=== PATIENT | male | born 1945 | race Caucasian/White ===

== ENCOUNTER 2018-01-03 10:05 | Inpatient (IN) ==
[2018-01-03] MEDS ORDERED: Sod Chloride 0.9% Inj 1,000 ML IV.SIG ONE (10:12)
--- NOTE | 2018-01-03 10:20 | ED ---
HPI General Chief Complaint: Seizure Stated Complaint: Seizure Time Seen by Provider: 01/03/18 10:11 History of Present Illness HPI Narrative: Patient is 72 years old male with no significant past medical history, was stopped by police on a rolled by he was driving he was, suspicious of them was moving from side to side of the road. When police stopped him he had some slurred speech was mildly confused, moving all extremities. EMS called for evaluation. Patient had tonic-clonic seizure for few minutes in front of EMS, patient was given Versed up to 6 mg total, seizure stopped patient was brought to emergency room, sedated. Vitals stable. Right pupil 4.5 cm, left 4cm, reactive to light , sluggish. Unable to evaluate neurologic status. Related Data Home Medications Medication Instructions Recorded Confirmed Unable to Obtain Home Meds 01/03/18 01/03/18 Allergies Allergy/AdvReac Type Severity Reaction Status Date / Time No Known Allergies Allergy Verified 01/03/18 10:11 Review of Systems ROS: all other systems reviewed are negative Neurologic Comments: unresponsive, postictal PMFSH Family History Family History Father Prostate cancer Mother [place] (myocardial infarction) Other Hypertension Social History Social History Substance History: Unable to Obtain Smoking Status: Unknown if ever smoked How Often Do You Have a Drink Containing Alcohol: Monthly or less Hx Recent Travel: No Recent Travel in [place] within the Last 8 Weeks: No Recent Out of Country Travel within the Last 8 Weeks: No Course Initial Documented Vital Signs Pulse Rate 76 01/03/18 10:07 Respiratory Rate 16 01/03/18 10:07 Blood Pressure 132/58 L 01/03/18 10:07 Pulse Oximetry 100 01/03/18 10:07 Last Documented Vital Signs Temperature 98.8 F 01/09/18 04:00 Pulse Rate 100 H 01/09/18 05:00 Respiratory Rate 18 01/09/18 05:00 Blood Pressure 157/83 H 01/09/18 05:00 Pulse Oximetry 92 L 01/09/18 05:00 Medical Decision Making Lab Data Result diagrams: 01/06/18 04:00 01/09/18 05:31 Lab Results 01/03/18 01/03/18 01/03/18 Range/Units 10:09 10:17 10:17 WBC 5.4 (4.0-11.0) th/mm3 RBC 4.57 (4.50-5.90) mil/mm3 Hgb 14.0 (13.0-17.0) gm/dL Hct 42.7 (39.0-51.0) % MCV 93.4 (80.0-100.0) fL MCH 30.6 (27.0-34.0) pg MCHC 32.7 (32.0-36.0) % RDW 14.9 (11.6-17.2) % Plt Count 241 (150-450) th/mm3 MPV 7.7 (7.0-11.0) fL Neut % (Auto) 69.4 (16.0-70.0) % Lymph % (Auto) 17.2 (9.0-44.0) % [place] % (Auto) 9.6 H (0.0-8.0) % Eos % (Auto) 3.2 (0.0-4.0) % Baso % (Auto) 0.6 (0.0-2.0) % Neut # (Auto) 3.7 (1.8-7.7) th/mm3 Lymph # (Auto) 0.9 L (1.0-4.8) th/mm3 [place] # (Auto) 0.5 (0.0-0.9) th/mm3 Eos # (Auto) 0.2 (0.0-0.4) th/mm3 Baso # (Auto) 0.0 (0.0-0.2) th/mm3 WBC Differential . Differential Comment Auto diff final PT (9.8-11.6) sec INR Ratio D-Dimer Quant (PE/DVT) (0.00-0.50) mg/L FEU Puncture Site Patient Temperature O2 Saturation (90-100) % ABG pH (7.380-7.420) ABG pCO2 (38-42) mmHg ABG pO2 (61-120) mmHG ABG HCO3 (22-26) mmol/L ABG O2 Content (12.0-20.0) Vol % ABG Base Excess (-2-2) mmol/L ABG Methemoglobin (0-2) % Mahin Test Hemoglobin (12.0-16.0) G/DL Carboxyhemoglobin (0-4) % O2 Delivery Device Liter Flow L/M Critical Value Sodium 142 (136-145) meq/L Potassium 4.2 (3.5-5.1) meq/L Chloride 107 (98-107) meq/L Carbon Dioxide 22.5 (21.0-32.0) meq/L Anion Gap 13 (5-15) meq/L BUN 11 (7-18) mg/dL Creatinine 1.16 (0.60-1.30) mg/dL Estimated GFR 62 L (>89) mL/min POC Glucose 145 H (68-110) mg/dl Random Glucose 141 H (74-106) mg/dL Lactic Acid (0.4-2.0) mmol/L Calcium 9.0 (8.5-10.1) mg/dL Magnesium (1.5-2.5) mg/dL Total Bilirubin 0.4 (0.2-1.0) mg/dL AST 26 (15-37) U/L ALT 26 (12-78) U/L Alkaline Phosphatase 79 (45-117) U/L Troponin I (0.02-0.05) ng/mL Total Protein 8.4 H (6.4-8.2) g/dL Albumin 3.5 (3.4-5.0) g/dL Free PSA ng/mL Total PSA (<=6.5) ng/mL PSA Free/Total Ratio ratio Vitamin B12 (193-986) pg/mL Ascorbic Acid (0.4 - 2.0) mg/dL Vitamin D 25-Hydroxy (30-100) ng/mL TSH (0.358-3.740) uIU/mL Urine Color (Yellw/Straw) Urine Clarity (Clear) Urine pH (5.0-8.5) Ur Specific [place] (1.002-1.035) Urine Protein (Neg-Trace) mg/dL Urine Glucose (UA) (Negative) mg/dL Urine Ketones (Negative) mg/dL Urine Occult Blood (Negative) Urine Nitrate (Negative) Urine Bilirubin (Negative) Urine Urobilinogen (Less than 2) mg/dL Ur Leukocyte Esterase (Negative) Urine RBC (0-3) /hpf Urine WBC (0-5) /hpf Ur Squamous Epith Cells (0-5) /hpf Urine Bacteria (None) /hpf Hyaline Casts (0-3) /lpf Urine Mucus (Occasional) /lpf Micro UA Comment Ur Microscopic Review Urine Culture Comments CSF Volume (1) mL CSF Supernat Color (1) (Clear) CSF Gross Blood (1) (0) CSF WBC (1) (0-10) /mm3 CSF RBC (1) (None) /mm3 CSF Volume (2) mL CSF Supernat Color (2) (Clear) CSF Gross Blood (2) (0) CSF Volume (3) mL CSF Supernat Color (3) (Clear) CSF Gross Blood (3) (0) CSF Volume (4) mL CSF Supernat Color (4) (Clear) CSF Gross Blood (4) (0) CSF WBC (4) (0-10) /mm3 CSF RBC (4) (None) /mm3 CSF Neutrophils % % CSF Lymphocytes % % CSF Monocytes % % CSF Comment CSF Glucose (40-80) mg/dL CSF LDH U/L CSF Lactic Acid (0.0-3.0) mmol/L CSF Total Protein (15.0-45.0) mg/dL CSF Treponema Ab (FTA) (NonReactive) CSF Herpes I DNA (PCR) (Negative) CSF Herpes II DNA (PCR) (Negative) Nasal Screen MRSA (PCR) (Negative) Urine Opiates Screen (Neg) Ur Barbiturates Screen (Neg) Ur Amphetamines Screen (Neg) U Benzodiazepines Scrn (Neg) Urine Cocaine Screen (Neg) U Cannabinoids Screen (Neg) Serum Alcohol Less than 3 (0-5) mg/dL RPR (Nonreactive) Hepatitis A IgM Ab (Nonreactive) Hep Bs Antigen (Nonreactive) Hep B Core IgM Ab (Nonreactive) Hep C IgG Ab (Nonreactive) HIV 1&2 Ab/P24 Ag 4thGn (Nonreactive) 01/03/18 01/03/18 01/03/18 Range/Units 10:17 10:17 10:43 WBC (4.0-11.0) th/mm3 RBC (4.50-5.90) mil/mm3 Hgb (13.0-17.0) gm/dL Hct (39.0-51.0) % MCV (80.0-100.0) fL MCH (27.0-34.0) pg MCHC (32.0-36.0) % RDW (11.6-17.2) % Plt Count (150-450) th/mm3 MPV (7.0-11.0) fL Neut % (Auto) (16.0-70.0) % Lymph % (Auto) (9.0-44.0) % [place] % (Auto) (0.0-8.0) % Eos % (Auto) (0.0-4.0) % Baso % (Auto) (0.0-2.0) % Neut # (Auto) (1.8-7.7) th/mm3 Lymph # (Auto) (1.0-4.8) th/mm3 [place] # (Auto) (0.0-0.9) th/mm3 Eos # (Auto) (0.0-0.4) th/mm3 Baso # (Auto) (0.0-0.2) th/mm3 WBC Differential Differential Comment PT (9.8-11.6) sec INR Ratio D-Dimer Quant (PE/DVT) (0.00-0.50) mg/L FEU Puncture Site Patient Temperature O2 Saturation (90-100) % ABG pH (7.380-7.420) ABG pCO2 (38-42) mmHg ABG pO2 (61-120) mmHG ABG HCO3 (22-26) mmol/L ABG O2 Content (12.0-20.0) Vol % ABG Base Excess (-2-2) mmol/L ABG Methemoglobin (0-2) % Mahin Test Hemoglobin (12.0-16.0) G/DL Carboxyhemoglobin (0-4) % O2 Delivery Device Liter Flow L/M Critical Value Sodium (136-145) meq/L Potassium (3.5-5.1) meq/L Chloride (98-107) meq/L Carbon Dioxide (21.0-32.0) meq/L Anion Gap (5-15) meq/L BUN (7-18) mg/dL Creatinine (0.60-1.30) mg/dL Estimated GFR (>89) mL/min POC Glucose (68-110) mg/dl Random Glucose (74-106) mg/dL Lactic Acid 5.0 H* (0.4-2.0) mmol/L Calcium (8.5-10.1) mg/dL Magnesium 2.0 (1.5-2.5) mg/dL Total Bilirubin (0.2-1.0) mg/dL AST (15-37) U/L ALT (12-78) U/L Alkaline Phosphatase (45-117) U/L Troponin I Less than 0.02 L (0.02-0.05) ng/mL Total Protein (6.4-8.2) g/dL Albumin (3.4-5.0) g/dL Free PSA ng/mL Total PSA (<=6.5) ng/mL PSA Free/Total Ratio ratio Vitamin B12 (193-986) pg/mL Ascorbic Acid (0.4 - 2.0) mg/dL Vitamin D 25-Hydroxy (30-100) ng/mL TSH (0.358-3.740) uIU/mL Urine Color (Yellw/Straw) Urine Clarity (Clear) Urine pH (5.0-8.5) Ur Specific [place] (1.002-1.035) Urine Protein (Neg-Trace) mg/dL Urine Glucose (UA) (Negative) mg/dL Urine Ketones (Negative) mg/dL Urine Occult Blood (Negative) Urine Nitrate (Negative) Urine Bilirubin (Negative) Urine Urobilinogen (Less than 2) mg/dL Ur Leukocyte Esterase (Negative) Urine RBC (0-3) /hpf Urine WBC (0-5) /hpf Ur Squamous Epith Cells (0-5) /hpf Urine Bacteria (None) /hpf Hyaline Casts (0-3) /lpf Urine Mucus (Occasional) /lpf Micro UA Comment Ur Microscopic Review Urine Culture Comments CSF Volume (1) mL CSF Supernat Color (1) (Clear) CSF Gross Blood (1) (0) CSF WBC (1) (0-10) /mm3 CSF RBC (1) (None) /mm3 CSF Volume (2) mL CSF Supernat Color (2) (Clear) CSF Gross Blood (2) (0) CSF Volume (3) mL CSF Supernat Color (3) (Clear) CSF Gross Blood (3) (0) CSF Volume (4) mL CSF Supernat Color (4) (Clear) CSF Gross Blood (4) (0) CSF WBC (4) (0-10) /mm3 CSF RBC (4) (None) /mm3 CSF Neutrophils % % CSF Lymphocytes % % CSF Monocytes % % CSF Comment CSF Glucose (40-80) mg/dL CSF LDH U/L CSF Lactic Acid (0.0-3.0) mmol/L CSF Total Protein (15.0-45.0) mg/dL CSF Treponema Ab (FTA) (NonReactive) CSF Herpes I DNA (PCR) (Negative) CSF Herpes II DNA (PCR) (Negative) Nasal Screen MRSA (PCR) (Negative) Urine Opiates Screen (Neg) Ur Barbiturates Screen (Neg) Ur Amphetamines Screen (Neg) U Benzodiazepines Scrn (Neg) Urine Cocaine Screen (Neg) U Cannabinoids Screen (Neg) Serum Alcohol (0-5) mg/dL RPR (Nonreactive) Hepatitis A IgM Ab (Nonreactive) Hep Bs Antigen (Nonreactive) Hep B Core IgM Ab (Nonreactive) Hep C IgG Ab (Nonreactive) HIV 1&2 Ab/P24 Ag 4thGn (Nonreactive) 01/03/18 01/03/18 01/03/18 Range/Units 10:58 16:49 16:55 WBC (4.0-11.0) th/mm3 RBC (4.50-5.90) mil/mm3 Hgb (13.0-17.0) gm/dL Hct (39.0-51.0) % MCV (80.0-100.0) fL MCH (27.0-34.0) pg MCHC (32.0-36.0) % RDW (11.6-17.2) % Plt Count (150-450) th/mm3 MPV (7.0-11.0) fL Neut % (Auto) (16.0-70.0) % Lymph % (Auto) (9.0-44.0) % [place] % (Auto) (0.0-8.0) % Eos % (Auto) (0.0-4.0) % Baso % (Auto) (0.0-2.0) % Neut # (Auto) (1.8-7.7) th/mm3 Lymph # (Auto) (1.0-4.8) th/mm3 [place] # (Auto) (0.0-0.9) th/mm3 Eos # (Auto) (0.0-0.4) th/mm3 Baso # (Auto) (0.0-0.2) th/mm3 WBC Differential Differential Comment PT (9.8-11.6) sec INR Ratio D-Dimer Quant (PE/DVT) (0.00-0.50) mg/L FEU Puncture Site Patient Temperature O2 Saturation (90-100) % ABG pH (7.380-7.420) ABG pCO2 (38-42) mmHg ABG pO2 (61-120) mmHG ABG HCO3 (22-26) mmol/L ABG O2 Content (12.0-20.0) Vol % ABG Base Excess (-2-2) mmol/L ABG Methemoglobin (0-2) % Mahin Test Hemoglobin (12.0-16.0) G/DL Carboxyhemoglobin (0-4) % O2 Delivery Device Liter Flow L/M Critical Value Sodium (136-145) meq/L Potassium (3.5-5.1) meq/L Chloride (98-107) meq/L Carbon Dioxide (21.0-32.0) meq/L Anion Gap (5-15) meq/L BUN (7-18) mg/dL Creatinine (0.60-1.30) mg/dL Estimated GFR (>89) mL/min POC Glucose 125 H (68-110) mg/dl Random Glucose (74-106) mg/dL Lactic Acid (0.4-2.0) mmol/L Calcium (8.5-10.1) mg/dL Magnesium (1.5-2.5) mg/dL Total Bilirubin (0.2-1.0) mg/dL AST (15-37) U/L ALT (12-78) U/L Alkaline Phosphatase (45-117) U/L Troponin I (0.02-0.05) ng/mL Total Protein (6.4-8.2) g/dL Albumin (3.4-5.0) g/dL Free PSA ng/mL Total PSA (<=6.5) ng/mL PSA Free/Total Ratio ratio Vitamin B12 (193-986) pg/mL Ascorbic Acid (0.4 - 2.0) mg/dL Vitamin D 25-Hydroxy (30-100) ng/mL TSH (0.358-3.740) uIU/mL Urine Color (Yellw/Straw) Urine Clarity (Clear) Urine pH (5.0-8.5) Ur Specific [place] (1.002-1.035) Urine Protein (Neg-Trace) mg/dL Urine Glucose (UA) (Negative) mg/dL Urine Ketones (Negative) mg/dL Urine Occult Blood (Negative) Urine Nitrate (Negative) Urine Bilirubin (Negative) Urine Urobilinogen (Less than 2) mg/dL Ur Leukocyte Esterase (Negative) Urine RBC (0-3) /hpf Urine WBC (0-5) /hpf Ur Squamous Epith Cells (0-5) /hpf Urine Bacteria (None) /hpf Hyaline Casts (0-3) /lpf Urine Mucus (Occasional) /lpf Micro UA Comment Ur Microscopic Review Urine Culture Comments CSF Volume (1) mL CSF Supernat Color (1) (Clear) CSF Gross Blood (1) (0) CSF WBC (1) (0-10) /mm3 CSF RBC (1) (None) /mm3 CSF Volume (2) mL CSF Supernat Color (2) (Clear) CSF Gross Blood (2) (0) CSF Volume (3) mL CSF Supernat Color (3) (Clear) CSF Gross Blood (3) (0) CSF Volume (4) mL CSF Supernat Color (4) (Clear) CSF Gross Blood (4) (0) CSF WBC (4) (0-10) /mm3 CSF RBC (4) (None) /mm3 CSF Neutrophils % % CSF Lymphocytes % % CSF Monocytes % % CSF Comment CSF Glucose (40-80) mg/dL CSF LDH U/L CSF Lactic Acid (0.0-3.0) mmol/L CSF Total Protein (15.0-45.0) mg/dL CSF Treponema Ab (FTA) (NonReactive) CSF Herpes I DNA (PCR) (Negative) CSF Herpes II DNA (PCR) (Negative) Nasal Screen MRSA (PCR) Not detected (Negative) Urine Opiates Screen Neg (Neg) Ur Barbiturates Screen Neg (Neg) Ur Amphetamines Screen Neg (Neg) U Benzodiazepines Scrn Pos H (Neg) Urine Cocaine Screen Neg (Neg) U Cannabinoids Screen Neg (Neg) Serum Alcohol (0-5) mg/dL RPR (Nonreactive) Hepatitis A IgM Ab (Nonreactive) Hep Bs Antigen (Nonreactive) Hep B Core IgM Ab (Nonreactive) Hep C IgG Ab (Nonreactive) HIV 1&2 Ab/P24 Ag 4thGn (Nonreactive) 01/03/18 01/03/18 01/03/18 Range/Units 21:04 21:04 21:04 WBC (4.0-11.0) th/mm3 RBC (4.50-5.90) mil/mm3 Hgb (13.0-17.0) gm/dL Hct (39.0-51.0) % MCV (80.0-100.0) fL MCH (27.0-34.0) pg MCHC (32.0-36.0) % RDW (11.6-17.2) % Plt Count (150-450) th/mm3 MPV (7.0-11.0) fL Neut % (Auto) (16.0-70.0) % Lymph % (Auto) (9.0-44.0) % [place] % (Auto) (0.0-8.0) % Eos % (Auto) (0.0-4.0) % Baso % (Auto) (0.0-2.0) % Neut # (Auto) (1.8-7.7) th/mm3 Lymph # (Auto) (1.0-4.8) th/mm3 [place] # (Auto) (0.0-0.9) th/mm3 Eos # (Auto) (0.0-0.4) th/mm3 Baso # (Auto) (0.0-0.2) th/mm3 WBC Differential Differential Comment PT (9.8-11.6) sec INR Ratio D-Dimer Quant (PE/DVT) (0.00-0.50) mg/L FEU Puncture Site Patient Temperature O2 Saturation (90-100) % ABG pH (7.380-7.420) ABG pCO2 (38-42) mmHg ABG pO2 (61-120) mmHG ABG HCO3 (22-26) mmol/L ABG O2 Content (12.0-20.0) Vol % ABG Base Excess (-2-2) mmol/L ABG Methemoglobin (0-2) % Mahin Test Hemoglobin (12.0-16.0) G/DL Carboxyhemoglobin (0-4) % O2 Delivery Device Liter Flow L/M Critical Value Sodium (136-145) meq/L Potassium (3.5-5.1) meq/L Chloride (98-107) meq/L Carbon Dioxide (21.0-32.0) meq/L Anion Gap (5-15) meq/L BUN (7-18) mg/dL Creatinine (0.60-1.30) mg/dL Estimated GFR (>89) mL/min POC Glucose (68-110) mg/dl Random Glucose (74-106) mg/dL Lactic Acid (0.4-2.0) mmol/L Calcium (8.5-10.1) mg/dL Magnesium (1.5-2.5) mg/dL Total Bilirubin (0.2-1.0) mg/dL AST (15-37) U/L ALT (12-78) U/L Alkaline Phosphatase (45-117) U/L Troponin I (0.02-0.05) ng/mL Total Protein (6.4-8.2) g/dL Albumin (3.4-5.0) g/dL Free PSA 0.4 ng/mL Total PSA 0.9 (<=6.5) ng/mL PSA Free/Total Ratio 0 ratio Vitamin B12 499 (193-986) pg/mL Ascorbic Acid 0.8000 (0.4 - 2.0) mg/dL Vitamin D 25-Hydroxy 23.7 L (30-100) ng/mL TSH 0.380 (0.358-3.740) uIU/mL Urine Color (Yellw/Straw) Urine Clarity (Clear) Urine pH (5.0-8.5) Ur Specific [place] (1.002-1.035) Urine Protein (Neg-Trace) mg/dL Urine Glucose (UA) (Negative) mg/dL Urine Ketones (Negative) mg/dL Urine Occult Blood (Negative) Urine Nitrate (Negative) Urine Bilirubin (Negative) Urine Urobilinogen (Less than 2) mg/dL Ur Leukocyte Esterase (Negative) Urine RBC (0-3) /hpf Urine WBC (0-5) /hpf Ur Squamous Epith Cells (0-5) /hpf Urine Bacteria (None) /hpf Hyaline Casts (0-3) /lpf Urine Mucus (Occasional) /lpf Micro UA Comment Ur Microscopic Review Urine Culture Comments CSF Volume (1) mL CSF Supernat Color (1) (Clear) CSF Gross Blood (1) (0) CSF WBC (1) (0-10) /mm3 CSF RBC (1) (None) /mm3 CSF Volume (2) mL CSF Supernat Color (2) (Clear) CSF Gross Blood (2) (0) CSF Volume (3) mL CSF Supernat Color (3) (Clear) CSF Gross Blood (3) (0) CSF Volume (4) mL CSF Supernat Color (4) (Clear) CSF Gross Blood (4) (0) CSF WBC (4) (0-10) /mm3 CSF RBC (4) (None) /mm3 CSF Neutrophils % % CSF Lymphocytes % % CSF Monocytes % % CSF Comment CSF Glucose (40-80) mg/dL CSF LDH U/L CSF Lactic Acid (0.0-3.0) mmol/L CSF Total Protein (15.0-45.0) mg/dL CSF Treponema Ab (FTA) (NonReactive) CSF Herpes I DNA (PCR) (Negative) CSF Herpes II DNA (PCR) (Negative) Nasal Screen MRSA (PCR) (Negative) Urine Opiates Screen (Neg) Ur Barbiturates Screen (Neg) Ur Amphetamines Screen (Neg) U Benzodiazepines Scrn (Neg) Urine Cocaine Screen (Neg) U Cannabinoids Screen (Neg) Serum Alcohol (0-5) mg/dL RPR Nonreactive (Nonreactive) Hepatitis A IgM Ab (Nonreactive) Hep Bs Antigen (Nonreactive) Hep B Core IgM Ab (Nonreactive) Hep C IgG Ab (Nonreactive) HIV 1&2 Ab/P24 Ag 4thGn (Nonreactive) 01/04/18 01/04/18 01/04/18 Range/Units 04:54 05:48 05:48 WBC 8.6 D (4.0-11.0) th/mm3 RBC 4.03 L (4.50-5.90) mil/mm3 Hgb 12.2 L (13.0-17.0) gm/dL Hct 36.2 L (39.0-51.0) % MCV 89.7 D (80.0-100.0) fL MCH 30.2 (27.0-34.0) pg MCHC 33.7 (32.0-36.0) % RDW 14.4 (11.6-17.2) % Plt Count 191 (150-450) th/mm3 MPV 7.4 (7.0-11.0) fL Neut % (Auto) (16.0-70.0) % Lymph % (Auto) (9.0-44.0) % [place] % (Auto) (0.0-8.0) % Eos % (Auto) (0.0-4.0) % Baso % (Auto) (0.0-2.0) % Neut # (Auto) (1.8-7.7) th/mm3 Lymph # (Auto) (1.0-4.8) th/mm3 [place] # (Auto) (0.0-0.9) th/mm3 Eos # (Auto) (0.0-0.4) th/mm3 Baso # (Auto) (0.0-0.2) th/mm3 WBC Differential Differential Comment PT (9.8-11.6) sec INR Ratio D-Dimer Quant (PE/DVT) (0.00-0.50) mg/L FEU Puncture Site Patient Temperature O2 Saturation (90-100) % ABG pH (7.380-7.420) ABG pCO2 (38-42) mmHg ABG pO2 (61-120) mmHG ABG HCO3 (22-26) mmol/L ABG O2 Content (12.0-20.0) Vol % ABG Base Excess (-2-2) mmol/L ABG Methemoglobin (0-2) % Mahin Test Hemoglobin (12.0-16.0) G/DL Carboxyhemoglobin (0-4) % O2 Delivery Device Liter Flow L/M Critical Value Sodium 146 H (136-145) meq/L Potassium 3.2 L D (3.5-5.1) meq/L Chloride 111 H (98-107) meq/L Carbon Dioxide 28.1 (21.0-32.0) meq/L Anion Gap 7 (5-15) meq/L BUN 12 (7-18) mg/dL Creatinine 0.67 (0.60-1.30) mg/dL Estimated GFR Greater than 89 (>89) mL/min POC Glucose (68-110) mg/dl Random Glucose 105 (74-106) mg/dL Lactic Acid 1.0 (0.4-2.0) mmol/L Calcium 8.1 L D (8.5-10.1) mg/dL Magnesium (1.5-2.5) mg/dL Total Bilirubin (0.2-1.0) mg/dL AST (15-37) U/L ALT (12-78) U/L Alkaline Phosphatase (45-117) U/L Troponin I (0.02-0.05) ng/mL Total Protein (6.4-8.2) g/dL Albumin (3.4-5.0) g/dL Free PSA ng/mL Total PSA (<=6.5) ng/mL PSA Free/Total Ratio ratio Vitamin B12 (193-986) pg/mL Ascorbic Acid (0.4 - 2.0) mg/dL Vitamin D 25-Hydroxy (30-100) ng/mL TSH (0.358-3.740) uIU/mL Urine Color (Yellw/Straw) Urine Clarity (Clear) Urine pH (5.0-8.5) Ur Specific [place] (1.002-1.035) Urine Protein (Neg-Trace) mg/dL Urine Glucose (UA) (Negative) mg/dL Urine Ketones (Negative) mg/dL Urine Occult Blood (Negative) Urine Nitrate (Negative) Urine Bilirubin (Negative) Urine Urobilinogen (Less than 2) mg/dL Ur Leukocyte Esterase (Negative) Urine RBC (0-3) /hpf Urine WBC (0-5) /hpf Ur Squamous Epith Cells (0-5) /hpf Urine Bacteria (None) /hpf Hyaline Casts (0-3) /lpf Urine Mucus (Occasional) /lpf Micro UA Comment Ur Microscopic Review Urine Culture Comments CSF Volume (1) mL CSF Supernat Color (1) (Clear) CSF Gross Blood (1) (0) CSF WBC (1) (0-10) /mm3 CSF RBC (1) (None) /mm3 CSF Volume (2) mL CSF Supernat Color (2) (Clear) CSF Gross Blood (2) (0) CSF Volume (3) mL CSF Supernat Color (3) (Clear) CSF Gross Blood (3) (0) CSF Volume (4) mL CSF Supernat Color (4) (Clear) CSF Gross Blood (4) (0) CSF WBC (4) (0-10) /mm3 CSF RBC (4) (None) /mm3 CSF Neutrophils % % CSF Lymphocytes % % CSF Monocytes % % CSF Comment CSF Glucose (40-80) mg/dL CSF LDH U/L CSF Lactic Acid (0.0-3.0) mmol/L CSF Total Protein (15.0-45.0) mg/dL CSF Treponema Ab (FTA) (NonReactive) CSF Herpes I DNA (PCR) (Negative) CSF Herpes II DNA (PCR) (Negative) Nasal Screen MRSA (PCR) (Negative) Urine Opiates Screen (Neg) Ur Barbiturates Screen (Neg) Ur Amphetamines Screen (Neg) U Benzodiazepines Scrn (Neg) Urine Cocaine Screen (Neg) U Cannabinoids Screen (Neg) Serum Alcohol (0-5) mg/dL RPR (Nonreactive) Hepatitis A IgM Ab (Nonreactive) Hep Bs Antigen (Nonreactive) Hep B Core IgM Ab (Nonreactive) Hep C IgG Ab (Nonreactive) HIV 1&2 Ab/P24 Ag 4thGn (Nonreactive) 01/04/18 01/05/18 01/05/18 Range/Units 22:43 00:45 03:21 WBC 9.6 (4.0-11.0) th/mm3 RBC 5.01 (4.50-5.90) mil/mm3 Hgb 15.2 D (13.0-17.0) gm/dL Hct 45.2 (39.0-51.0) % MCV 90.3 (80.0-100.0) fL MCH 30.3 (27.0-34.0) pg MCHC 33.6 (32.0-36.0) % RDW 14.9 (11.6-17.2) % Plt Count 190 (150-450) th/mm3 MPV 7.7 (7.0-11.0) fL Neut % (Auto) 92.5 H (16.0-70.0) % Lymph % (Auto) 2.2 L (9.0-44.0) % [place] % (Auto) 4.8 (0.0-8.0) % Eos % (Auto) 0.3 (0.0-4.0) % Baso % (Auto) 0.2 (0.0-2.0) % Neut # (Auto) 8.9 H (1.8-7.7) th/mm3 Lymph # (Auto) 0.2 L (1.0-4.8) th/mm3 [place] # (Auto) 0.5 (0.0-0.9) th/mm3 Eos # (Auto) 0.0 (0.0-0.4) th/mm3 Baso # (Auto) 0.0 (0.0-0.2) th/mm3 WBC Differential . Differential Comment Auto diff final PT (9.8-11.6) sec INR Ratio D-Dimer Quant (PE/DVT) (0.00-0.50) mg/L FEU Puncture Site Left radial Patient Temperature 98.6 O2 Saturation 92 (90-100) % ABG pH 7.41 (7.380-7.420) ABG pCO2 44 H (38-42) mmHg ABG pO2 85 (61-120) mmHG ABG HCO3 27 H (22-26) mmol/L ABG O2 Content 17.3 (12.0-20.0) Vol % ABG Base Excess 2.7 H (-2-2) mmol/L ABG Methemoglobin 2.8 H (0-2) % Mahin Test Present Hemoglobin 13.4 (12.0-16.0) G/DL Carboxyhemoglobin 0.6 (0-4) % O2 Delivery Device Nasal cannula Liter Flow 3.00 L/M Critical Value No Sodium (136-145) meq/L Potassium (3.5-5.1) meq/L Chloride (98-107) meq/L Carbon Dioxide (21.0-32.0) meq/L Anion Gap (5-15) meq/L BUN (7-18) mg/dL Creatinine (0.60-1.30) mg/dL Estimated GFR (>89) mL/min POC Glucose (68-110) mg/dl Random Glucose (74-106) mg/dL Lactic Acid (0.4-2.0) mmol/L Calcium (8.5-10.1) mg/dL Magnesium (1.5-2.5) mg/dL Total Bilirubin (0.2-1.0) mg/dL AST (15-37) U/L ALT (12-78) U/L Alkaline Phosphatase (45-117) U/L Troponin I (0.02-0.05) ng/mL Total Protein (6.4-8.2) g/dL Albumin (3.4-5.0) g/dL Free PSA ng/mL Total PSA (<=6.5) ng/mL PSA Free/Total Ratio ratio Vitamin B12 (193-986) pg/mL Ascorbic Acid (0.4 - 2.0) mg/dL Vitamin D 25-Hydroxy (30-100) ng/mL TSH (0.358-3.740) uIU/mL Urine Color Colorless (Yellw/Straw) Urine Clarity Clear (Clear) Urine pH 5.0 (5.0-8.5) Ur Specific [place] 1.005 (1.002-1.035) Urine Protein Negative (Neg-Trace) mg/dL Urine Glucose (UA) Negative (Negative) mg/dL Urine Ketones Negative (Negative) mg/dL Urine Occult Blood Small H (Negative) Urine Nitrate Negative (Negative) Urine Bilirubin Negative (Negative) Urine Urobilinogen Less than 2 (Less than 2) mg/dL Ur Leukocyte Esterase Negative (Negative) Urine RBC 1 (0-3) /hpf Urine WBC 1 (0-5) /hpf Ur Squamous Epith Cells <1 (0-5) /hpf Urine Bacteria Rare H (None) /hpf Hyaline Casts 4 (0-3) /lpf Urine Mucus Few H (Occasional) /lpf Micro UA Comment Cath-culture ind Ur Microscopic Review Not Reportable Urine Culture Comments Cath-cult indicated CSF Volume (1) mL CSF Supernat Color (1) (Clear) CSF Gross Blood (1) (0) CSF WBC (1) (0-10) /mm3 CSF RBC (1) (None) /mm3 CSF Volume (2) mL CSF Supernat Color (2) (Clear) CSF Gross Blood (2) (0) CSF Volume (3) mL CSF Supernat Color (3) (Clear) CSF Gross Blood (3) (0) CSF Volume (4) mL CSF Supernat Color (4) (Clear) CSF Gross Blood (4) (0) CSF WBC (4) (0-10) /mm3 CSF RBC (4) (None) /mm3 CSF Neutrophils % % CSF Lymphocytes % % CSF Monocytes % % CSF Comment CSF Glucose (40-80) mg/dL CSF LDH U/L CSF Lactic Acid (0.0-3.0) mmol/L CSF Total Protein (15.0-45.0) mg/dL CSF Treponema Ab (FTA) (NonReactive) CSF Herpes I DNA (PCR) (Negative) CSF Herpes II DNA (PCR) (Negative) Nasal Screen MRSA (PCR) (Negative) Urine Opiates Screen (Neg) Ur Barbiturates Screen (Neg) Ur Amphetamines Screen (Neg) U Benzodiazepines Scrn (Neg) Urine Cocaine Screen (Neg) U Cannabinoids Screen (Neg) Serum Alcohol (0-5) mg/dL RPR (Nonreactive) Hepatitis A IgM Ab (Nonreactive) Hep Bs Antigen (Nonreactive) Hep B Core IgM Ab (Nonreactive) Hep C IgG Ab (Nonreactive) HIV 1&2 Ab/P24 Ag 4thGn (Nonreactive) 01/05/18 01/05/18 01/05/18 Range/Units 03:21 03:21 14:32 WBC (4.0-11.0) th/mm3 RBC (4.50-5.90) mil/mm3 Hgb (13.0-17.0) gm/dL Hct (39.0-51.0) % MCV (80.0-100.0) fL MCH (27.0-34.0) pg MCHC (32.0-36.0) % RDW (11.6-17.2) % Plt Count (150-450) th/mm3 MPV (7.0-11.0) fL Neut % (Auto) (16.0-70.0) % Lymph % (Auto) (9.0-44.0) % [place] % (Auto) (0.0-8.0) % Eos % (Auto) (0.0-4.0) % Baso % (Auto) (0.0-2.0) % Neut # (Auto) (1.8-7.7) th/mm3 Lymph # (Auto) (1.0-4.8) th/mm3 [place] # (Auto) (0.0-0.9) th/mm3 Eos # (Auto) (0.0-0.4) th/mm3 Baso # (Auto) (0.0-0.2) th/mm3 WBC Differential Differential Comment PT (9.8-11.6) sec INR Ratio D-Dimer Quant (PE/DVT) 3.83 H (0.00-0.50) mg/L FEU Puncture Site Patient Temperature O2 Saturation (90-100) % ABG pH (7.380-7.420) ABG pCO2 (38-42) mmHg ABG pO2 (61-120) mmHG ABG HCO3 (22-26) mmol/L ABG O2 Content (12.0-20.0) Vol % ABG Base Excess (-2-2) mmol/L ABG Methemoglobin (0-2) % Mahin Test Hemoglobin (12.0-16.0) G/DL Carboxyhemoglobin (0-4) % O2 Delivery Device Liter Flow L/M Critical Value Sodium 144 (136-145) meq/L Potassium 3.6 (3.5-5.1) meq/L Chloride 104 (98-107) meq/L Carbon Dioxide 35.0 H (21.0-32.0) meq/L Anion Gap 5 (5-15) meq/L BUN 12 (7-18) mg/dL Creatinine 1.31 H (0.60-1.30) mg/dL Estimated GFR 54 L (>89) mL/min POC Glucose (68-110) mg/dl Random Glucose 122 H (74-106) mg/dL Lactic Acid 1.4 (0.4-2.0) mmol/L Calcium 8.5 (8.5-10.1) mg/dL Magnesium 1.9 (1.5-2.5) mg/dL Total Bilirubin 1.7 H (0.2-1.0) mg/dL AST 36 (15-37) U/L ALT 32 (12-78) U/L Alkaline Phosphatase 83 (45-117) U/L Troponin I (0.02-0.05) ng/mL Total Protein 8.5 H (6.4-8.2) g/dL Albumin 3.4 (3.4-5.0) g/dL Free PSA ng/mL Total PSA (<=6.5) ng/mL PSA Free/Total Ratio ratio Vitamin B12 (193-986) pg/mL Ascorbic Acid (0.4 - 2.0) mg/dL Vitamin D 25-Hydroxy (30-100) ng/mL TSH (0.358-3.740) uIU/mL Urine Color (Yellw/Straw) Urine Clarity (Clear) Urine pH (5.0-8.5) Ur Specific [place] (1.002-1.035) Urine Protein (Neg-Trace) mg/dL Urine Glucose (UA) (Negative) mg/dL Urine Ketones (Negative) mg/dL Urine Occult Blood (Negative) Urine Nitrate (Negative) Urine Bilirubin (Negative) Urine Urobilinogen (Less than 2) mg/dL Ur Leukocyte Esterase (Negative) Urine RBC (0-3) /hpf Urine WBC (0-5) /hpf Ur Squamous Epith Cells (0-5) /hpf Urine Bacteria (None) /hpf Hyaline Casts (0-3) /lpf Urine Mucus (Occasional) /lpf Micro UA Comment Ur Microscopic Review Urine Culture Comments CSF Volume (1) mL CSF Supernat Color (1) (Clear) CSF Gross Blood (1) (0) CSF WBC (1) (0-10) /mm3 CSF RBC (1) (None) /mm3 CSF Volume (2) mL CSF Supernat Color (2) (Clear) CSF Gross Blood (2) (0) CSF Volume (3) mL CSF Supernat Color (3) (Clear) CSF Gross Blood (3) (0) CSF Volume (4) mL CSF Supernat Color (4) (Clear) CSF Gross Blood (4) (0) CSF WBC (4) (0-10) /mm3 CSF RBC (4) (None) /mm3 CSF Neutrophils % % CSF Lymphocytes % % CSF Monocytes % % CSF Comment CSF Glucose (40-80) mg/dL CSF LDH U/L CSF Lactic Acid (0.0-3.0) mmol/L CSF Total Protein (15.0-45.0) mg/dL CSF Treponema Ab (FTA) (NonReactive) CSF Herpes I DNA (PCR) (Negative) CSF Herpes II DNA (PCR) (Negative) Nasal Screen MRSA (PCR) (Negative) Urine Opiates Screen (Neg) Ur Barbiturates Screen (Neg) Ur Amphetamines Screen (Neg) U Benzodiazepines Scrn (Neg) Urine Cocaine Screen (Neg) U Cannabinoids Screen (Neg) Serum Alcohol (0-5) mg/dL RPR (Nonreactive) Hepatitis A IgM Ab (Nonreactive) Hep Bs Antigen (Nonreactive) Hep B Core IgM Ab (Nonreactive) Hep C IgG Ab (Nonreactive) HIV 1&2 Ab/P24 Ag 4thGn (Nonreactive) 01/05/18 01/06/18 01/06/18 Range/Units 20:23 04:00 04:00 WBC 6.6 (4.0-11.0) th/mm3 RBC 4.84 (4.50-5.90) mil/mm3 Hgb 14.6 (13.0-17.0) gm/dL Hct 43.8 (39.0-51.0) % MCV 90.4 (80.0-100.0) fL MCH 30.2 (27.0-34.0) pg MCHC 33.4 (32.0-36.0) % RDW 14.8 (11.6-17.2) % Plt Count 168 (150-450) th/mm3 MPV 8.2 (7.0-11.0) fL Neut % (Auto) (16.0-70.0) % Lymph % (Auto) (9.0-44.0) % [place] % (Auto) (0.0-8.0) % Eos % (Auto) (0.0-4.0) % Baso % (Auto) (0.0-2.0) % Neut # (Auto) (1.8-7.7) th/mm3 Lymph # (Auto) (1.0-4.8) th/mm3 [place] # (Auto) (0.0-0.9) th/mm3 Eos # (Auto) (0.0-0.4) th/mm3 Baso # (Auto) (0.0-0.2) th/mm3 WBC Differential Differential Comment PT (9.8-11.6) sec INR Ratio D-Dimer Quant (PE/DVT) (0.00-0.50) mg/L FEU Puncture Site Patient Temperature O2 Saturation (90-100) % ABG pH (7.380-7.420) ABG pCO2 (38-42) mmHg ABG pO2 (61-120) mmHG ABG HCO3 (22-26) mmol/L ABG O2 Content (12.0-20.0) Vol % ABG Base Excess (-2-2) mmol/L ABG Methemoglobin (0-2) % Mahin Test Hemoglobin (12.0-16.0) G/DL Carboxyhemoglobin (0-4) % O2 Delivery Device Liter Flow L/M Critical Value Sodium 149 H (136-145) meq/L Potassium 2.8 L* D (3.5-5.1) meq/L Chloride 105 (98-107) meq/L Carbon Dioxide 35.4 H (21.0-32.0) meq/L Anion Gap 9 (5-15) meq/L BUN 21 H (7-18) mg/dL Creatinine 0.96 (0.60-1.30) mg/dL Estimated GFR 77 L (>89) mL/min POC Glucose (68-110) mg/dl Random Glucose 106 (74-106) mg/dL Lactic Acid (0.4-2.0) mmol/L Calcium 8.0 L (8.5-10.1) mg/dL Magnesium (1.5-2.5) mg/dL Total Bilirubin (0.2-1.0) mg/dL AST (15-37) U/L ALT (12-78) U/L Alkaline Phosphatase (45-117) U/L Troponin I Less than 0.02 L (0.02-0.05) ng/mL Total Protein (6.4-8.2) g/dL Albumin (3.4-5.0) g/dL Free PSA ng/mL Total PSA (<=6.5) ng/mL PSA Free/Total Ratio ratio Vitamin B12 (193-986) pg/mL Ascorbic Acid (0.4 - 2.0) mg/dL Vitamin D 25-Hydroxy (30-100) ng/mL TSH (0.358-3.740) uIU/mL Urine Color (Yellw/Straw) Urine Clarity (Clear) Urine pH (5.0-8.5) Ur Specific [place] (1.002-1.035) Urine Protein (Neg-Trace) mg/dL Urine Glucose (UA) (Negative) mg/dL Urine Ketones (Negative) mg/dL Urine Occult Blood (Negative) Urine Nitrate (Negative) Urine Bilirubin (Negative) Urine Urobilinogen (Less than 2) mg/dL Ur Leukocyte Esterase (Negative) Urine RBC (0-3) /hpf Urine WBC (0-5) /hpf Ur Squamous Epith Cells (0-5) /hpf Urine Bacteria (None) /hpf Hyaline Casts (0-3) /lpf Urine Mucus (Occasional) /lpf Micro UA Comment Ur Microscopic Review Urine Culture Comments CSF Volume (1) mL CSF Supernat Color (1) (Clear) CSF Gross Blood (1) (0) CSF WBC (1) (0-10) /mm3 CSF RBC (1) (None) /mm3 CSF Volume (2) mL CSF Supernat Color (2) (Clear) CSF Gross Blood (2) (0) CSF Volume (3) mL CSF Supernat Color (3) (Clear) CSF Gross Blood (3) (0) CSF Volume (4) mL CSF Supernat Color (4) (Clear) CSF Gross Blood (4) (0) CSF WBC (4) (0-10) /mm3 CSF RBC (4) (None) /mm3 CSF Neutrophils % % CSF Lymphocytes % % CSF Monocytes % % CSF Comment CSF Glucose (40-80) mg/dL CSF LDH U/L CSF Lactic Acid (0.0-3.0) mmol/L CSF Total Protein (15.0-45.0) mg/dL CSF Treponema Ab (FTA) (NonReactive) CSF Herpes I DNA (PCR) (Negative) CSF Herpes II DNA (PCR) (Negative) Nasal Screen MRSA (PCR) (Negative) Urine Opiates Screen (Neg) Ur Barbiturates Screen (Neg) Ur Amphetamines Screen (Neg) U Benzodiazepines Scrn (Neg) Urine Cocaine Screen (Neg) U Cannabinoids Screen (Neg) Serum Alcohol (0-5) mg/dL RPR (Nonreactive) Hepatitis A IgM Ab (Nonreactive) Hep Bs Antigen (Nonreactive) Hep B Core IgM Ab (Nonreactive) Hep C IgG Ab (Nonreactive) HIV 1&2 Ab/P24 Ag 4thGn (Nonreactive) 01/06/18 01/06/18 01/06/18 Range/Units 10:50 13:20 13:20 WBC (4.0-11.0) th/mm3 RBC (4.50-5.90) mil/mm3 Hgb (13.0-17.0) gm/dL Hct (39.0-51.0) % MCV (80.0-100.0) fL MCH (27.0-34.0) pg MCHC (32.0-36.0) % RDW (11.6-17.2) % Plt Count (150-450) th/mm3 MPV (7.0-11.0) fL Neut % (Auto) (16.0-70.0) % Lymph % (Auto) (9.0-44.0) % [place] % (Auto) (0.0-8.0) % Eos % (Auto) (0.0-4.0) % Baso % (Auto) (0.0-2.0) % Neut # (Auto) (1.8-7.7) th/mm3 Lymph # (Auto) (1.0-4.8) th/mm3 [place] # (Auto) (0.0-0.9) th/mm3 Eos # (Auto) (0.0-0.4) th/mm3 Baso # (Auto) (0.0-0.2) th/mm3 WBC Differential Differential Comment PT 12.6 H (9.8-11.6) sec INR 1.2 Ratio D-Dimer Quant (PE/DVT) (0.00-0.50) mg/L FEU Puncture Site Patient Temperature O2 Saturation (90-100) % ABG pH (7.380-7.420) ABG pCO2 (38-42) mmHg ABG pO2 (61-120) mmHG ABG HCO3 (22-26) mmol/L ABG O2 Content (12.0-20.0) Vol % ABG Base Excess (-2-2) mmol/L ABG Methemoglobin (0-2) % Mahin Test Hemoglobin (12.0-16.0) G/DL Carboxyhemoglobin (0-4) % O2 Delivery Device Liter Flow L/M Critical Value Sodium (136-145) meq/L Potassium (3.5-5.1) meq/L Chloride (98-107) meq/L Carbon Dioxide (21.0-32.0) meq/L Anion Gap (5-15) meq/L BUN (7-18) mg/dL Creatinine (0.60-1.30) mg/dL Estimated GFR (>89) mL/min POC Glucose (68-110) mg/dl Random Glucose (74-106) mg/dL Lactic Acid (0.4-2.0) mmol/L Calcium (8.5-10.1) mg/dL Magnesium (1.5-2.5) mg/dL Total Bilirubin (0.2-1.0) mg/dL AST (15-37) U/L ALT (12-78) U/L Alkaline Phosphatase (45-117) U/L Troponin I (0.02-0.05) ng/mL Total Protein (6.4-8.2) g/dL Albumin (3.4-5.0) g/dL Free PSA ng/mL Total PSA (<=6.5) ng/mL PSA Free/Total Ratio ratio Vitamin B12 (193-986) pg/mL Ascorbic Acid (0.4 - 2.0) mg/dL Vitamin D 25-Hydroxy (30-100) ng/mL TSH (0.358-3.740) uIU/mL Urine Color (Yellw/Straw) Urine Clarity (Clear) Urine pH (5.0-8.5) Ur Specific [place] (1.002-1.035) Urine Protein (Neg-Trace) mg/dL Urine Glucose (UA) (Negative) mg/dL Urine Ketones (Negative) mg/dL Urine Occult Blood (Negative) Urine Nitrate (Negative) Urine Bilirubin (Negative) Urine Urobilinogen (Less than 2) mg/dL Ur Leukocyte Esterase (Negative) Urine RBC (0-3) /hpf Urine WBC (0-5) /hpf Ur Squamous Epith Cells (0-5) /hpf Urine Bacteria (None) /hpf Hyaline Casts (0-3) /lpf Urine Mucus (Occasional) /lpf Micro UA Comment Ur Microscopic Review Urine Culture Comments CSF Volume (1) mL CSF Supernat Color (1) (Clear) CSF Gross Blood (1) (0) CSF WBC (1) (0-10) /mm3 CSF RBC (1) (None) /mm3 CSF Volume (2) mL CSF Supernat Color (2) (Clear) CSF Gross Blood (2) (0) CSF Volume (3) mL CSF Supernat Color (3) (Clear) CSF Gross Blood (3) (0) CSF Volume (4) mL CSF Supernat Color (4) (Clear) CSF Gross Blood (4) (0) CSF WBC (4) (0-10) /mm3 CSF RBC (4) (None) /mm3 CSF Neutrophils % % CSF Lymphocytes % % CSF Monocytes % % CSF Comment CSF Glucose (40-80) mg/dL CSF LDH U/L CSF Lactic Acid (0.0-3.0) mmol/L CSF Total Protein (15.0-45.0) mg/dL CSF Treponema Ab (FTA) (NonReactive) CSF Herpes I DNA (PCR) (Negative) CSF Herpes II DNA (PCR) (Negative) Nasal Screen MRSA (PCR) (Negative) Urine Opiates Screen (Neg) Ur Barbiturates Screen (Neg) Ur Amphetamines Screen (Neg) U Benzodiazepines Scrn (Neg) Urine Cocaine Screen (Neg) U Cannabinoids Screen (Neg) Serum Alcohol (0-5) mg/dL RPR (Nonreactive) Hepatitis A IgM Ab Nonreactive (Nonreactive) Hep Bs Antigen Nonreactive (Nonreactive) Hep B Core IgM Ab Nonreactive (Nonreactive) Hep C IgG Ab Nonreactive (Nonreactive) HIV 1&2 Ab/P24 Ag 4thGn Nonreactive (Nonreactive) 01/06/18 01/06/18 01/06/18 Range/Units 15:10 15:10 15:10 WBC (4.0-11.0) th/mm3 RBC (4.50-5.90) mil/mm3 Hgb (13.0-17.0) gm/dL Hct (39.0-51.0) % MCV (80.0-100.0) fL MCH (27.0-34.0) pg MCHC (32.0-36.0) % RDW (11.6-17.2) % Plt Count (150-450) th/mm3 MPV (7.0-11.0) fL Neut % (Auto) (16.0-70.0) % Lymph % (Auto) (9.0-44.0) % [place] % (Auto) (0.0-8.0) % Eos % (Auto) (0.0-4.0) % Baso % (Auto) (0.0-2.0) % Neut # (Auto) (1.8-7.7) th/mm3 Lymph # (Auto) (1.0-4.8) th/mm3 [place] # (Auto) (0.0-0.9) th/mm3 Eos # (Auto) (0.0-0.4) th/mm3 Baso # (Auto) (0.0-0.2) th/mm3 WBC Differential Differential Comment PT (9.8-11.6) sec INR Ratio D-Dimer Quant (PE/DVT) (0.00-0.50) mg/L FEU Puncture Site Patient Temperature O2 Saturation (90-100) % ABG pH (7.380-7.420) ABG pCO2 (38-42) mmHg ABG pO2 (61-120) mmHG ABG HCO3 (22-26) mmol/L ABG O2 Content (12.0-20.0) Vol % ABG Base Excess (-2-2) mmol/L ABG Methemoglobin (0-2) % Mahin Test Hemoglobin (12.0-16.0) G/DL Carboxyhemoglobin (0-4) % O2 Delivery Device Liter Flow L/M Critical Value Sodium (136-145) meq/L Potassium (3.5-5.1) meq/L Chloride (98-107) meq/L Carbon Dioxide (21.0-32.0) meq/L Anion Gap (5-15) meq/L BUN (7-18) mg/dL Creatinine (0.60-1.30) mg/dL Estimated GFR (>89) mL/min POC Glucose (68-110) mg/dl Random Glucose (74-106) mg/dL Lactic Acid (0.4-2.0) mmol/L Calcium (8.5-10.1) mg/dL Magnesium (1.5-2.5) mg/dL Total Bilirubin (0.2-1.0) mg/dL AST (15-37) U/L ALT (12-78) U/L Alkaline Phosphatase (45-117) U/L Troponin I (0.02-0.05) ng/mL Total Protein (6.4-8.2) g/dL Albumin (3.4-5.0) g/dL Free PSA ng/mL Total PSA (<=6.5) ng/mL PSA Free/Total Ratio ratio Vitamin B12 (193-986) pg/mL Ascorbic Acid (0.4 - 2.0) mg/dL Vitamin D 25-Hydroxy (30-100) ng/mL TSH (0.358-3.740) uIU/mL Urine Color (Yellw/Straw) Urine Clarity (Clear) Urine pH (5.0-8.5) Ur Specific [place] (1.002-1.035) Urine Protein (Neg-Trace) mg/dL Urine Glucose (UA) (Negative) mg/dL Urine Ketones (Negative) mg/dL Urine Occult Blood (Negative) Urine Nitrate (Negative) Urine Bilirubin (Negative) Urine Urobilinogen (Less than 2) mg/dL Ur Leukocyte Esterase (Negative) Urine RBC (0-3) /hpf Urine WBC (0-5) /hpf Ur Squamous Epith Cells (0-5) /hpf Urine Bacteria (None) /hpf Hyaline Casts (0-3) /lpf Urine Mucus (Occasional) /lpf Micro UA Comment Ur Microscopic Review Urine Culture Comments CSF Volume (1) 2.8 mL CSF Supernat Color (1) Clear (Clear) CSF Gross Blood (1) Trace A (0) CSF WBC (1) 4 (0-10) /mm3 CSF RBC (1) 7 H (None) /mm3 CSF Volume (2) 2.8 mL CSF Supernat Color (2) Clear (Clear) CSF Gross Blood (2) Trace A (0) CSF Volume (3) 2.8 mL CSF Supernat Color (3) Clear (Clear) CSF Gross Blood (3) 0 (0) CSF Volume (4) 2.8 mL CSF Supernat Color (4) Clear (Clear) CSF Gross Blood (4) 0 (0) CSF WBC (4) 7 (0-10) /mm3 CSF RBC (4) 2 H (None) /mm3 CSF Neutrophils % 0 % CSF Lymphocytes % 68 % CSF Monocytes % 32 % CSF Comment CSF Glucose 68 (40-80) mg/dL CSF LDH 27 U/L CSF Lactic Acid 1.7 (0.0-3.0) mmol/L CSF Total Protein 103.0 H (15.0-45.0) mg/dL CSF Treponema Ab (FTA) (NonReactive) CSF Herpes I DNA (PCR) (Negative) CSF Herpes II DNA (PCR) (Negative) Nasal Screen MRSA (PCR) (Negative) Urine Opiates Screen (Neg) Ur Barbiturates Screen (Neg) Ur Amphetamines Screen (Neg) U Benzodiazepines Scrn (Neg) Urine Cocaine Screen (Neg) U Cannabinoids Screen (Neg) Serum Alcohol (0-5) mg/dL RPR (Nonreactive) Hepatitis A IgM Ab (Nonreactive) Hep Bs Antigen (Nonreactive) Hep B Core IgM Ab (Nonreactive) Hep C IgG Ab (Nonreactive) HIV 1&2 Ab/P24 Ag 4thGn (Nonreactive) 01/06/18 01/06/18 01/06/18 Range/Units 15:10 15:10 15:10 WBC (4.0-11.0) th/mm3 RBC (4.50-5.90) mil/mm3 Hgb (13.0-17.0) gm/dL Hct (39.0-51.0) % MCV (80.0-100.0) fL MCH (27.0-34.0) pg MCHC (32.0-36.0) % RDW (11.6-17.2) % Plt Count (150-450) th/mm3 MPV (7.0-11.0) fL Neut % (Auto) (16.0-70.0) % Lymph % (Auto) (9.0-44.0) % [place] % (Auto) (0.0-8.0) % Eos % (Auto) (0.0-4.0) % Baso % (Auto) (0.0-2.0) % Neut # (Auto) (1.8-7.7) th/mm3 Lymph # (Auto) (1.0-4.8) th/mm3 [place] # (Auto) (0.0-0.9) th/mm3 Eos # (Auto) (0.0-0.4) th/mm3 Baso # (Auto) (0.0-0.2) th/mm3 WBC Differential Differential Comment PT (9.8-11.6) sec INR Ratio D-Dimer Quant (PE/DVT) (0.00-0.50) mg/L FEU Puncture Site Patient Temperature O2 Saturation (90-100) % ABG pH (7.380-7.420) ABG pCO2 (38-42) mmHg ABG pO2 (61-120) mmHG ABG HCO3 (22-26) mmol/L ABG O2 Content (12.0-20.0) Vol % ABG Base Excess (-2-2) mmol/L ABG Methemoglobin (0-2) % Mahin Test Hemoglobin (12.0-16.0) G/DL Carboxyhemoglobin (0-4) % O2 Delivery Device Liter Flow L/M Critical Value Sodium (136-145) meq/L Potassium (3.5-5.1) meq/L Chloride (98-107) meq/L Carbon Dioxide (21.0-32.0) meq/L Anion Gap (5-15) meq/L BUN (7-18) mg/dL Creatinine (0.60-1.30) mg/dL Estimated GFR (>89) mL/min POC Glucose (68-110) mg/dl Random Glucose (74-106) mg/dL Lactic Acid (0.4-2.0) mmol/L Calcium (8.5-10.1) mg/dL Magnesium (1.5-2.5) mg/dL Total Bilirubin (0.2-1.0) mg/dL AST (15-37) U/L ALT (12-78) U/L Alkaline Phosphatase (45-117) U/L Troponin I (0.02-0.05) ng/mL Total Protein (6.4-8.2) g/dL Albumin (3.4-5.0) g/dL Free PSA ng/mL Total PSA (<=6.5) ng/mL PSA Free/Total Ratio ratio Vitamin B12 (193-986) pg/mL Ascorbic Acid (0.4 - 2.0) mg/dL Vitamin D 25-Hydroxy (30-100) ng/mL TSH (0.358-3.740) uIU/mL Urine Color (Yellw/Straw) Urine Clarity (Clear) Urine pH (5.0-8.5) Ur Specific [place] (1.002-1.035) Urine Protein (Neg-Trace) mg/dL Urine Glucose (UA) (Negative) mg/dL Urine Ketones (Negative) mg/dL Urine Occult Blood (Negative) Urine Nitrate (Negative) Urine Bilirubin (Negative) Urine Urobilinogen (Less than 2) mg/dL Ur Leukocyte Esterase (Negative) Urine RBC (0-3) /hpf Urine WBC (0-5) /hpf Ur Squamous Epith Cells (0-5) /hpf Urine Bacteria (None) /hpf Hyaline Casts (0-3) /lpf Urine Mucus (Occasional) /lpf Micro UA Comment Ur Microscopic Review Urine Culture Comments CSF Volume (1) mL CSF Supernat Color (1) (Clear) CSF Gross Blood (1) (0) CSF WBC (1) (0-10) /mm3 CSF RBC (1) (None) /mm3 CSF Volume (2) mL CSF Supernat Color (2) (Clear) CSF Gross Blood (2) (0) CSF Volume (3) mL CSF Supernat Color (3) (Clear) CSF Gross Blood (3) (0) CSF Volume (4) mL CSF Supernat Color (4) (Clear) CSF Gross Blood (4) (0) CSF WBC (4) (0-10) /mm3 CSF RBC (4) (None) /mm3 CSF Neutrophils % % CSF Lymphocytes % % CSF Monocytes % % CSF Comment CSF Glucose (40-80) mg/dL CSF LDH Cancelled U/L CSF Lactic Acid Cancelled (0.0-3.0) mmol/L CSF Total Protein (15.0-45.0) mg/dL CSF Treponema Ab (FTA) (NonReactive) CSF Herpes I DNA (PCR) Negative (Negative) CSF Herpes II DNA (PCR) Negative (Negative) Nasal Screen MRSA (PCR) (Negative) Urine Opiates Screen (Neg) Ur Barbiturates Screen (Neg) Ur Amphetamines Screen (Neg) U Benzodiazepines Scrn (Neg) Urine Cocaine Screen (Neg) U Cannabinoids Screen (Neg) Serum Alcohol (0-5) mg/dL RPR (Nonreactive) Hepatitis A IgM Ab (Nonreactive) Hep Bs Antigen (Nonreactive) Hep B Core IgM Ab (Nonreactive) Hep C IgG Ab (Nonreactive) HIV 1&2 Ab/P24 Ag 4thGn (Nonreactive) 01/06/18 01/06/18 01/06/18 Range/Units 15:10 15:10 20:31 WBC (4.0-11.0) th/mm3 RBC (4.50-5.90) mil/mm3 Hgb (13.0-17.0) gm/dL Hct (39.0-51.0) % MCV (80.0-100.0) fL MCH (27.0-34.0) pg MCHC (32.0-36.0) % RDW (11.6-17.2) % Plt Count (150-450) th/mm3 MPV (7.0-11.0) fL Neut % (Auto) (16.0-70.0) % Lymph % (Auto) (9.0-44.0) % [place] % (Auto) (0.0-8.0) % Eos % (Auto) (0.0-4.0) % Baso % (Auto) (0.0-2.0) % Neut # (Auto) (1.8-7.7) th/mm3 Lymph # (Auto) (1.0-4.8) th/mm3 [place] # (Auto) (0.0-0.9) th/mm3 Eos # (Auto) (0.0-0.4) th/mm3 Baso # (Auto) (0.0-0.2) th/mm3 WBC Differential Differential Comment PT (9.8-11.6) sec INR Ratio D-Dimer Quant (PE/DVT) (0.00-0.50) mg/L FEU Puncture Site Patient Temperature O2 Saturation (90-100) % ABG pH (7.380-7.420) ABG pCO2 (38-42) mmHg ABG pO2 (61-120) mmHG ABG HCO3 (22-26) mmol/L ABG O2 Content (12.0-20.0) Vol % ABG Base Excess (-2-2) mmol/L ABG Methemoglobin (0-2) % Mahin Test Hemoglobin (12.0-16.0) G/DL Carboxyhemoglobin (0-4) % O2 Delivery Device Liter Flow L/M Critical Value Sodium (136-145) meq/L Potassium 3.7 D (3.5-5.1) meq/L Chloride (98-107) meq/L Carbon Dioxide (21.0-32.0) meq/L Anion Gap (5-15) meq/L BUN (7-18) mg/dL Creatinine (0.60-1.30) mg/dL Estimated GFR (>89) mL/min POC Glucose (68-110) mg/dl Random Glucose (74-106) mg/dL Lactic Acid (0.4-2.0) mmol/L Calcium (8.5-10.1) mg/dL Magnesium (1.5-2.5) mg/dL Total Bilirubin (0.2-1.0) mg/dL AST (15-37) U/L ALT (12-78) U/L Alkaline Phosphatase (45-117) U/L Troponin I (0.02-0.05) ng/mL Total Protein (6.4-8.2) g/dL Albumin (3.4-5.0) g/dL Free PSA ng/mL Total PSA (<=6.5) ng/mL PSA Free/Total Ratio ratio Vitamin B12 (193-986) pg/mL Ascorbic Acid (0.4 - 2.0) mg/dL Vitamin D 25-Hydroxy (30-100) ng/mL TSH (0.358-3.740) uIU/mL Urine Color (Yellw/Straw) Urine Clarity (Clear) Urine pH (5.0-8.5) Ur Specific [place] (1.002-1.035) Urine Protein (Neg-Trace) mg/dL Urine Glucose (UA) (Negative) mg/dL Urine Ketones (Negative) mg/dL Urine Occult Blood (Negative) Urine Nitrate (Negative) Urine Bilirubin (Negative) Urine Urobilinogen (Less than 2) mg/dL Ur Leukocyte Esterase (Negative) Urine RBC (0-3) /hpf Urine WBC (0-5) /hpf Ur Squamous Epith Cells (0-5) /hpf Urine Bacteria (None) /hpf Hyaline Casts (0-3) /lpf Urine Mucus (Occasional) /lpf Micro UA Comment Ur Microscopic Review Urine Culture Comments CSF Volume (1) mL CSF Supernat Color (1) (Clear) CSF Gross Blood (1) (0) CSF WBC (1) (0-10) /mm3 CSF RBC (1) (None) /mm3 CSF Volume (2) mL CSF Supernat Color (2) (Clear) CSF Gross Blood (2) (0) CSF Volume (3) mL CSF Supernat Color (3) (Clear) CSF Gross Blood (3) (0) CSF Volume (4) mL CSF Supernat Color (4) (Clear) CSF Gross Blood (4) (0) CSF WBC (4) (0-10) /mm3 CSF RBC (4) (None) /mm3 CSF Neutrophils % % CSF Lymphocytes % % CSF Monocytes % % CSF Comment CSF Glucose (40-80) mg/dL CSF LDH U/L CSF Lactic Acid (0.0-3.0) mmol/L CSF Total Protein Cancelled (15.0-45.0) mg/dL CSF Treponema Ab (FTA) Non-reactive (NonReactive) CSF Herpes I DNA (PCR) (Negative) CSF Herpes II DNA (PCR) (Negative) Nasal Screen MRSA (PCR) (Negative) Urine Opiates Screen (Neg) Ur Barbiturates Screen (Neg) Ur Amphetamines Screen (Neg) U Benzodiazepines Scrn (Neg) Urine Cocaine Screen (Neg) U Cannabinoids Screen (Neg) Serum Alcohol (0-5) mg/dL RPR (Nonreactive) Hepatitis A IgM Ab (Nonreactive) Hep Bs Antigen (Nonreactive) Hep B Core IgM Ab (Nonreactive) Hep C IgG Ab (Nonreactive) HIV 1&2 Ab/P24 Ag 4thGn (Nonreactive) 01/08/18 01/09/18 Range/Units 06:43 05:31 WBC (4.0-11.0) th/mm3 RBC (4.50-5.90) mil/mm3 Hgb (13.0-17.0) gm/dL Hct (39.0-51.0) % MCV (80.0-100.0) fL MCH (27.0-34.0) pg MCHC (32.0-36.0) % RDW (11.6-17.2) % Plt Count (150-450) th/mm3 MPV (7.0-11.0) fL Neut % (Auto) (16.0-70.0) % Lymph % (Auto) (9.0-44.0) % [place] % (Auto) (0.0-8.0) % Eos % (Auto) (0.0-4.0) % Baso % (Auto) (0.0-2.0) % Neut # (Auto) (1.8-7.7) th/mm3 Lymph # (Auto) (1.0-4.8) th/mm3 [place] # (Auto) (0.0-0.9) th/mm3 Eos # (Auto) (0.0-0.4) th/mm3 Baso # (Auto) (0.0-0.2) th/mm3 WBC Differential Differential Comment PT (9.8-11.6) sec INR Ratio D-Dimer Quant (PE/DVT) (0.00-0.50) mg/L FEU Puncture Site Patient Temperature O2 Saturation (90-100) % ABG pH (7.380-7.420) ABG pCO2 (38-42) mmHg ABG pO2 (61-120) mmHG ABG HCO3 (22-26) mmol/L ABG O2 Content (12.0-20.0) Vol % ABG Base Excess (-2-2) mmol/L ABG Methemoglobin (0-2) % [place] Test Hemoglobin (12.0-16.0) G/DL Carboxyhemoglobin (0-4) % O2 Delivery Device Liter Flow L/M Critical Value Sodium 153 H 152 H (136-145) meq/L Potassium 3.4 L 3.2 L (3.5-5.1) meq/L Chloride 113 H 114 H (98-107) meq/L Carbon Dioxide 31.9 30.4 (21.0-32.0) meq/L Anion Gap 8 8 (5-15) meq/L BUN 24 H 20 H (7-18) mg/dL Creatinine 0.77 0.80 (0.60-1.30) mg/dL Estimated GFR Greater than 89 Greater than 89 (>89) mL/min POC Glucose (68-110) mg/dl Random Glucose 108 H 115 H (74-106) mg/dL Lactic Acid (0.4-2.0) mmol/L Calcium 8.4 L 8.7 (8.5-10.1) mg/dL Magnesium (1.5-2.5) mg/dL Total Bilirubin (0.2-1.0) mg/dL AST (15-37) U/L ALT (12-78) U/L Alkaline Phosphatase (45-117) U/L Troponin I (0.02-0.05) ng/mL Total Protein (6.4-8.2) g/dL Albumin (3.4-5.0) g/dL Free PSA ng/mL Total PSA (<=6.5) ng/mL PSA Free/Total Ratio ratio Vitamin B12 (193-986) pg/mL Ascorbic Acid (0.4 - 2.0) mg/dL Vitamin D 25-Hydroxy (30-100) ng/mL TSH (0.358-3.740) uIU/mL Urine Color (Yellw/Straw) Urine Clarity (Clear) Urine pH (5.0-8.5) Ur Specific [place] (1.002-1.035) Urine Protein (Neg-Trace) mg/dL Urine Glucose (UA) (Negative) mg/dL Urine Ketones (Negative) mg/dL Urine Occult Blood (Negative) Urine Nitrate (Negative) Urine Bilirubin (Negative) Urine Urobilinogen (Less than 2) mg/dL Ur Leukocyte Esterase (Negative) Urine RBC (0-3) /hpf Urine WBC (0-5) /hpf Ur Squamous Epith Cells (0-5) /hpf Urine Bacteria (None) /hpf Hyaline Casts (0-3) /lpf Urine Mucus (Occasional) /lpf Micro UA Comment Ur Microscopic Review Urine Culture Comments CSF Volume (1) mL CSF Supernat Color (1) (Clear) CSF Gross Blood (1) (0) CSF WBC (1) (0-10) /mm3 CSF RBC (1) (None) /mm3 CSF Volume (2) mL CSF Supernat Color (2) (Clear) CSF Gross Blood (2) (0) CSF Volume (3) mL CSF Supernat Color (3) (Clear) CSF Gross Blood (3) (0) CSF Volume (4) mL CSF Supernat Color (4) (Clear) CSF Gross Blood (4) (0) CSF WBC (4) (0-10) /mm3 CSF RBC (4) (None) /mm3 CSF Neutrophils % % CSF Lymphocytes % % CSF Monocytes % % CSF Comment CSF Glucose (40-80) mg/dL CSF LDH U/L CSF Lactic Acid (0.0-3.0) mmol/L CSF Total Protein (15.0-45.0) mg/dL CSF Treponema Ab (FTA) (NonReactive) CSF Herpes I DNA (PCR) (Negative) CSF Herpes II DNA (PCR) (Negative) Nasal Screen MRSA (PCR) (Negative) Urine Opiates Screen (Neg) Ur Barbiturates Screen (Neg) Ur Amphetamines Screen (Neg) U Benzodiazepines Scrn (Neg) Urine Cocaine Screen (Neg) U Cannabinoids Screen (Neg) Serum Alcohol (0-5) mg/dL RPR (Nonreactive) Hepatitis A IgM Ab (Nonreactive) Hep Bs Antigen (Nonreactive) Hep B Core IgM Ab (Nonreactive) Hep C IgG Ab (Nonreactive) HIV 1&2 Ab/P24 Ag 4thGn (Nonreactive) Imaging Data Radiologist's impression: Head CT 01/03/18 10:11 CONCLUSION: No acute intracranial abnormality is identified. . Abdomen X-Ray 01/04/18 00:00 CONCLUSION: Surgical clips in the upper abdomen. Bowel gas pattern within normal limits. Chest X-Ray 01/04/18 00:00 CONCLUSION: Prominent hilar silhouettes right greater than left may represent prominent pulmonary vasculature. Recommend chest CT without contrast to exclude mass. Chest X-Ray 01/04/18 22:32 CONCLUSION: No significant change Chest CTA 01/05/18 00:00 CONCLUSION: 1. No pulmonary embolus. 2. Small bilateral pleural effusions. Dependent/compressive appearing atelectasis of both lower lobes. 3. Patchy nonspecific parenchymal opacities of both lungs. There is a 3.1 cm nodular area of the right lower lobe, nonspecific but most likely infectious or inflammatory, possibly a vascular malformation. Comparison to any previous outside facility chest CTs would be helpful. Three-month follow-up noncontrast chest CT is recommended if there are no priors. 4. Coronary artery calcification. Head MRI 01/05/18 00:00 CONCLUSION: 1. Negative MR Brain non contrast. 2. No evidence of acute infarct, hemorrhage, mass or edema. Lumbar Puncture Fluoroscopy 01/06/18 00:00 CONCLUSION: 1. Uncomplicated fluoroscopically guided lumbar puncture. Discharge Plan Physicians Team ED Provider: Osei Uriarte Primary Care Provider: UNKNOWN, Attending Provider: Satya Muñoz Other Providers: Maddie Guillen ; Leonides Damon ; Darlene Lucero ; Rubens Napier Status ED Status: Left Department Discharge Information Discharge Date/Time: 01/03/18 15:43
[2018-01-03 10:37] LABS: Baso % (Auto) 0.6 % (0.0-2.0); Eos # (Auto) 0.2 th/mm3 (0.0-0.4); Eos % (Auto) 3.2 % (0.0-4.0); Hematocrit 42.7 % (39.0-51.0); Lymph # (Auto) 0.9 th/mm3 (1.0-4.8); Lymph % (Auto) 17.2 % (9.0-44.0); Mean Corpuscular HGB Conc 32.7 % (32.0-36.0); Mean Corpuscular Hemoglobin 30.6 pg (27.0-34.0); Mean Corpuscular Volume 93.4 fL (80.0-100.0); Mean Platelet Volume 7.7 fL (7.0-11.0); Mono # (Auto) 0.5 th/mm3 (0.0-0.9); Mono % (Auto) 9.6 % (0.0-8.0); Neut # (Auto) 3.7 th/mm3 (1.8-7.7); Neut % (Auto) 69.4 % (16.0-70.0); Platelet Count 241 th/mm3 (150-450); Red Blood Count 4.57 mil/mm3 (4.50-5.90); Red Cell Distribution Width 14.9 % (11.6-17.2); White Blood Count 5.4 th/mm3 (4.0-11.0)
--- NOTE | 2018-01-03 10:43 | CT ---
EXAM DATE: 01/03/2018 10:27 AM EDT AGE/SEX: 72 years / Male INDICATIONS: Tonic clonic seizure, Right pupil larger than left CLINICAL DATA: This is the patient's initial encounter. Patient reports that signs and symptoms have been present for 1 day and indicates a pain score of Nonresponsive. MEDICAL/SURGICAL HISTORY: Non-responsive. Non-responsive. RADIATION DOSE: 56.35 CTDI (mGy) COMPARISON: No prior exams available for comparison. TECHNIQUE: CT of the head without contrast. Using automated exposure control and adjustment of the mA and/or kV according to patient size, radiation dose was kept as low as reasonably achievable to ob tain optimal diagnostic quality images. DICOM format image data is available electronically for revi ew and comparison. FINDINGS: Cerebrum: There is mild generalized atrophy and ventricles are normal given the degree of atrophy. No midline shift, mass lesion, hemorrhage or acute infarction. No extraaxial fluid collections are s een. Posterior Fossa: The cerebellum and brainstem demonstrate no acute abnormality. The 4th ventricle is midline. The cerebellopontine angle is within normal limits. Extracranial: The visualized sinuses are clear. Skull: The calvaria is intact. No skull fracture. CONCLUSION: No acute intracranial abnormality is identified. . Electronically signed by: Gene Chery MD 01/03/2018 10:41 AM EDT
[2018-01-03 10:51] LABS: Alkaline Phosphatase 79 U/L (45-117); Total Protein 8.4 g/dL (6.4-8.2)
[2018-01-03 10:53] LABS: Alanine Aminotransferase 26 U/L (12-78); Albumin 3.5 g/dL (3.4-5.0); Anion Gap 13 meq/L (5-15); Aspartate Aminotransferase 26 U/L (15-37); Blood Urea Nitrogen 11 mg/dL (7-18); Carbon Dioxide 22.5 meq/L (21.0-32.0); Chloride 107 meq/L (98-107); Glomerular Filtration Rate 62 mL/min (>89); Glucose,Random 141 mg/dL (74-106); Potassium 4.2 meq/L (3.5-5.1); Sodium 142 meq/L (136-145)
[2018-01-03 11:35] LABS: Amphetamine Screen,Urine Neg (Neg); Barbiturate Screen,Urine Neg (Neg); Cannabinoid Screen,Urine Neg (Neg); Cocaine Screen,Urine Neg (Neg); Opiate Screen,Urine Neg (Neg)
[2018-01-03] MEDS ORDERED: Sodium Chlor 0.9% Inj 500 ML IV.SIG SCH (12:00)
[2018-01-03] MEDS ORDERED: Acetaminophen 325 MG Tablet PO PRN (12:43)
--- NOTE | 2018-01-03 13:09 | P.HP ---
History of Present Illness Primary Care Physician: UNKNOWN History of Present Illness: 9-year-old male with no significant medical history presents to the ER after having a seizure during a police stop for erratic driving. He was reported to be driving side to side on the street and when police interviewed him he was obviously confused, they called EMS and patient had a seizure. He was given Ativan and transferred to [place] emergency room where he had a second seizure following his CAT scan. He is unable to provide a history due to his post ictal state and sedation from Ativan. He has no family, but his neighbors are like family and they are at his bedside and provided a history. They report that they have seen his light on throughout the night, he has been under a great deal of stress with a housing issue, sleep deprivation could be worth considering in the context of seizures. They deny noticing any relationships in the last few years. They have visited his home and he is somewhat of a hoarder, his home by their report is filthy and they noticed multiple areas of black mold. They reported that he eats approximately 20 tomatoes per week, it is questionable whether or not he washes off the chemicals prior to eating them. They reported that he is on well water. Also of importance he had a gastric bypass in 2010, though his electrolytes appear within normal limits on initial lab work. Inpatient Certification: I certify that the inpatient services were ordered in accordance with Medicare regulations governing the order. This includes certification that hospital inpatient services are reasonable and necessary and in the case of services not specified as inpatient-only under 42 CFR 419.22(n), that they are appropriately provided as inpatient services in accordance to with the 2-midnight benchmark under 43 CFR 412.3(e) Estimated Total Length of Stay (Days): 5 Plans for Post Hospital Care: Home Review of Systems unobtainable due to mental status PMFSH - History History Provided By: Expedition Supervisor / EMT - Medical History Medical History: Medical History (Last Updated 01/03/18 @ 10:12 by Carole Giang RN) Medical history unknown Surgical history unknown - Surgical History Surgical History: Surgical History (Last Updated 01/03/18 @ 12:57 by Austen Coles MD) H/O gastric bypass - Family History Family History: Family History (Last Updated 01/03/18 @ 12:57 by Austen Coles MD) Other Hypertension - Tobacco History Smoking Status: Cognitive impairment - Alcohol History How Often Do You Have a Drink Containing Alcohol: Unable to Obtain - Substance Use History Substance History: Unable to Obtain - Travel History Recent Travel in the [place] Within the Last 8 Weeks: No Recent Travel Out of the Country Within the Last 8 Weeks: No - Immunization History Tetanus Immunization: Unable to Assess Medications and Allergies Active Medications: Active Medications Acetaminophen (Tylenol) 650 mg PO Q6H PRN PRN Reason: PAIN 1-10 AND/OR FEVER >101F Famotidine (Pepcid Pf Inj) 20 mg IV.PUSH Q12HR BARON Famotidine (Pepcid) 20 mg PO BID BARON Sodium Chloride (Ns Inj) 1,000 mls @ 60 mls/hr IV.CONT .[id number] BARON Lorazepam (Ativan Inj) 2 mg IV.PUSH Q4H PRN PRN Reason: Agitation/sedation Ondansetron HCl (Zofran Inj) 4 mg IV.PUSH Q6H PRN PRN Reason: NAUSEA OR VOMITING Sennosides (Senokot) 17.2 mg PO Q12H PRN PRN Reason: Moderate Constipation Sodium Chloride (Ns Flush) 2 ml IV.FLUSH PRN PRN PRN Reason: FLUSH AFTER USING IV ACCESS Sodium Chloride (Ns Flush) 2 ml IV.FLUSH BID BARON Sodium Chloride (Ns Flush) 2 ml IV.FLUSH PRN PRN PRN Reason: FLUSH AFTER USING IV ACCESS Allergies Allergy/AdvReac Type Severity Reaction Status Date / Time No Known Allergies Allergy Verified 01/03/18 10:11 Home Medications Medication Instructions Recorded Confirmed Type Unable to Obtain Home Meds 01/03/18 01/03/18 History Exam Vital signs: Vital Signs 01/03/18 10:07 01/03/18 10:49 01/03/18 11:13 Pulse Rate 76 67 60 Respiratory Rate 16 16 16 Blood Pressure 132/58 L 132/66 121/79 Pulse Oximetry 100 99 98 Intake & Output 01/02/18 01/03/18 01/03/18 18:59 06:59 18:59 Intake Total 1000 / 1000 Balance 1000 / 1000 Weight 117.934 kg Intake: IV 1000 / 1000 NS Inj 1,000 ML @ Wide Open IV. 1000 / 1000 SIG BOLUS ONE Rx#:[id number] Narrative: GENERAL: Postictal, sedated, restless, obese SKIN: Warm and dry, no rashes. HEAD: Atraumatic. Normocephalic. EYES: Pupils equal, round, sluggish to light. No scleral icterus. No injection or drainage. ENT: No nasal bleeding or discharge. Moist mucous membranes. Nonerythematous oropharynx. NECK: Trachea midline. No JVD. Thyroid size within normal limits. CARDIOVASCULAR: Regular rate and rhythm. No murmur, no gallops, no rubs. RESPIRATORY: Clear and equal to auscultation bilaterally. No crackles, no wheezes. No accessory muscle use. GASTROINTESTINAL: Abdomen soft, non-tender, nondistended, normal active bowel sounds. Hepatic and splenic margins not palpable. MUSCULOSKELETAL: Extremities without clubbing or cyanosis. No obvious deformities. Trace edema NEUROLOGICAL: Postictal, sedated. No obvious cranial nerve deficits. Motor grossly within normal limits. No focal deficits. Limited exam due to inability to cooperate from being postictal. Results - Labs CBC & Chem 7: 01/03/18 10:17 01/03/18 10:17 Labs: Laboratory Results - last 24 hr 01/03/18 01/03/18 01/03/18 10:09 10:17 10:17 WBC 5.4 RBC 4.57 Hgb 14.0 Hct 42.7 MCV 93.4 MCH 30.6 MCHC 32.7 RDW 14.9 Plt Count 241 MPV 7.7 Neut % (Auto) 69.4 Lymph % (Auto) 17.2 [place] % (Auto) 9.6 H Eos % (Auto) 3.2 Baso % (Auto) 0.6 Neut # (Auto) 3.7 Lymph # (Auto) 0.9 L [place] # (Auto) 0.5 Eos # (Auto) 0.2 Baso # (Auto) 0.0 WBC Differential . Differential Comment Auto diff final Sodium 142 Potassium 4.2 Chloride 107 Carbon Dioxide 22.5 Anion Gap 13 BUN 11 Creatinine 1.16 Estimated GFR 62 L POC Glucose 145 H Random Glucose 141 H Lactic Acid Calcium 9.0 Magnesium Total Bilirubin 0.4 AST 26 ALT 26 Alkaline Phosphatase 79 Troponin I Total Protein 8.4 H Albumin 3.5 Urine Opiates Screen Ur Barbiturates Screen Ur Amphetamines Screen U Benzodiazepines Scrn Urine Cocaine Screen U Cannabinoids Screen Serum Alcohol Less than 3 01/03/18 01/03/18 01/03/18 10:17 10:17 10:43 WBC RBC Hgb Hct MCV MCH MCHC RDW Plt Count MPV Neut % (Auto) Lymph % (Auto) [place] % (Auto) Eos % (Auto) Baso % (Auto) Neut # (Auto) Lymph # (Auto) [place] # (Auto) Eos # (Auto) Baso # (Auto) WBC Differential Differential Comment Sodium Potassium Chloride Carbon Dioxide Anion Gap BUN Creatinine Estimated GFR POC Glucose Random Glucose Lactic Acid 5.0 H* Calcium Magnesium 2.0 Total Bilirubin AST ALT Alkaline Phosphatase Troponin I Less than 0.02 L Total Protein Albumin Urine Opiates Screen Ur Barbiturates Screen Ur Amphetamines Screen U Benzodiazepines Scrn Urine Cocaine Screen U Cannabinoids Screen Serum Alcohol 01/03/18 10:58 WBC RBC Hgb Hct MCV MCH MCHC RDW Plt Count MPV Neut % (Auto) Lymph % (Auto) [place] % (Auto) Eos % (Auto) Baso % (Auto) Neut # (Auto) Lymph # (Auto) [place] # (Auto) Eos # (Auto) Baso # (Auto) WBC Differential Differential Comment Sodium Potassium Chloride Carbon Dioxide Anion Gap BUN Creatinine Estimated GFR POC Glucose Random Glucose Lactic Acid Calcium Magnesium Total Bilirubin AST ALT Alkaline Phosphatase Troponin I Total Protein Albumin Urine Opiates Screen Neg Ur Barbiturates Screen Neg Ur Amphetamines Screen Neg U Benzodiazepines Scrn Pos H Urine Cocaine Screen Neg U Cannabinoids Screen Neg Serum Alcohol - Imaging Impressions Head CT 01/03/18 10:11 CONCLUSION: No acute intracranial abnormality is identified. . Caprini VTE Risk Assessment Caprini VTE Risk Assessment: Moderate/High Risk (score >= 2) Caprini Risk Assessment Model: Point Value = 1 Point Value = 2 Point Value = 3 Point Value = 5 Age 41-60 Minor surgery BMI > 25 kg/m2 Swollen legs Varicose veins or History of unexplained or recurrent spontaneous Oral contraceptives or hormone replacement Sepsis (< 1 month) Serious lung disease, including pneumonia (< 1 month) Abnormal pulmonary function Acute myocardial infarction Congestive heart failure (< 1 month) History of inflammatory bowel disease Medical patient at bed rest Age 61-74 Arthroscopic surgery Major open surgery (> 45 min) Laparoscopic surgery (> 45 min) Malignancy Confined to bed (> 72 hours) Immobilizing plaster cast Central venous access Age >= 75 History of VTE Family history of VTE Factor V Leiden Prothrombin [id number] Lupus anticoagulant Anticardiolipin antibodies Elevated serum homocysteine Heparin-induced thrombocytopenia Other congenital or acquired thrombophilia Stroke (< 1 month) Elective arthroplasty Hip, pelvis, or leg fracture Acute spinal cord injury (< 1 month) Prophylaxis Regimen: Total Risk Factor Score Risk Level Prophylaxis Regimen 0-1 Low Early ambulation 2 Moderate Order ONE of the following: *Sequential Compression Device (SCD) *Heparin 5000 units SQ BID 3-4 Higher Order ONE of the following medications: *Heparin 5000 units SQ TID *Enoxaparin/Lovenox 40 mg SQ daily (WT < 150 kg, CrCl > 30 mL/min) *Enoxaparin/Lovenox 30 mg SQ daily (WT < 150 kg, CrCl > 10-29 mL/min) *Enoxaparin/Lovenox 30 mg SQ BID (WT < 150 kg, CrCl > 30 mL/min) AND/OR *Sequential Compression Device (SCD) 5 or more Highest Order ONE of the following medications: *Heparin 5000 units SQ TID (Preferred with Epidurals) *Enoxaparin/Lovenox 40 mg SQ daily (WT < 150 kg, CrCl > 30 mL/min) *Enoxaparin/Lovenox 30 mg SQ daily (WT < 150 kg, CrCl > 10-29 mL/min) *Enoxaparin/Lovenox 30 mg SQ BID (WT < 150 kg, CrCl > 30 mL/min) AND *Sequential Compression Device (SCD) Assessment and Plan - Plan New onset seizures Etiology is unclear, he 72 years old and this is his first occurrence with seizures Consider sleep deprivation, neighbors noted light has been on all night Consider black mold and Camacho droppings in home Consider possibility of pesticides from eating 20 tomatoes week purchased at a [employer] Consider well water status Consider history of gastric bypass surgery in 2010 We will expand workup for now with addition of B12, vitamin D, RPR, TSH, magnesium Neighbors denies any obvious history of drinking alcohol regularly, they are going to check his house for evidence Admit to ICU for close monitoring of pulse ox as well as seizure precautions Neurology consult placed for assistance with workup DVT prophylaxis SCDs, chemoprophylaxis held due to active seizures
[2018-01-03] MEDS: Sod Chloride 0.9% Inj 1,000 ML IV.CONT SCH (17:39)
--- NOTE | 2018-01-03 18:54 | ECG ---
Date Performed: 01/03/2018 Time Performed: 11:20:57 PTAGE: 72 years EKG: Sinus rhythm WITH FIRST DEGREE AV BLOCK ABNORMAL ECG NO PREVIOUS TRACING DOCTOR: Nate Cristobal Interpretating Date/Time 01/03/2018 18:52:19
--- NOTE | 2018-01-03 18:55 | MG ---
cc: Maddie Guillen MD EEG NUMBER: [id number]. REFERRING PHYSICIAN: Dr. Coles The patient has been moved to 510, restless, restrained. Hyperventilation was not done, only photic. Admitted with seizure-like activity. Postictal. There is quite a bit of artifact throughout. The patient is restless. Overall slowing seen but predominantly bilaterally. Photic stimulation does not elicit a significant driving response. IMPRESSION: Abnormal EEG due to slowing of background consistent with encephalopathic process. However, no discernable epileptiform features seen in this recording. Clinical correlation. Maddie Guillen MD DF/hayley , 06:35 PM , 06:40 PM
[2018-01-03 22:14] LABS: Thyroid Stimulating Hormone 0.38 uIU/mL (0.358-3.740)
[2018-01-03] MEDS: Famotidine PF Inj 20 MG/2 ML Vial IV.PUSH SCH (22:22)
[2018-01-03] MEDS: Famotidine 20 MG Tablet PO SCH (22:23)
[2018-01-04 06:01] LABS: Hematocrit 36.2 % (39.0-51.0); Hemoglobin 12.2 gm/dL (13.0-17.0); Mean Corpuscular HGB Conc 33.7 % (32.0-36.0); Mean Corpuscular Hemoglobin 30.2 pg (27.0-34.0); Mean Corpuscular Volume 89.7 fL (80.0-100.0); Mean Platelet Volume 7.4 fL (7.0-11.0); Platelet Count 191 th/mm3 (150-450); Red Blood Count 4.03 mil/mm3 (4.50-5.90); Red Cell Distribution Width 14.4 % (11.6-17.2); White Blood Count 8.6 th/mm3 (4.0-11.0)
[2018-01-04 06:36] LABS: Anion Gap 7 meq/L (5-15); Blood Urea Nitrogen 12 mg/dL (7-18); Calcium 8.1 mg/dL (8.5-10.1); Carbon Dioxide 28.1 meq/L (21.0-32.0); Chloride 111 meq/L (98-107); Glomerular Filtration Rate Greater Than 89 mL/min (>89); Glucose,Random 105 mg/dL (74-106); Potassium 3.2 meq/L (3.5-5.1); Sodium 146 meq/L (136-145)
[2018-01-04] MEDS: Sod Chloride 0.9% Inj 1,000 ML IV.CONT SCH ×2 (09:43→23:00)
[2018-01-04] MEDS: Famotidine PF Inj 20 MG/2 ML Vial IV.PUSH SCH ×2 (09:47→21:50)
[2018-01-04] MEDS: Famotidine 20 MG Tablet PO SCH ×2 (09:48→21:50)
--- NOTE | 2018-01-04 13:02 | XR ---
EXAM DATE: 01/04/2018 12:57 PM EDT AGE/SEX: 72 years / Male INDICATIONS: Shortness of breath and cough. CLINICAL DATA: This is the patient's subsequent encounter. Patient reports that signs and symptoms h ave been present for 3 days and indicates a pain score of 0/10. MEDICAL/SURGICAL HISTORY: . Unobtainable. . Unobtainable. COMPARISON: No prior exams available for comparison. FINDINGS: 2 AP views of the chest. Prominent right greater than left hilar silhouettes. Tortuous aorta. Promine nt central pulmonary vasculature. Lungs otherwise clear. No evidence of pleural effusion or pneumotho rax. CONCLUSION: Prominent hilar silhouettes right greater than left may represent prominent pulmonary vasculature. Re commend chest CT without contrast to exclude mass. Electronically signed by: Kyler Servin MD 01/04/2018 1:00 PM EDT
--- NOTE | 2018-01-04 13:14 | XR ---
EXAM DATE: 01/04/2018 12:59 PM EDT AGE/SEX: 72 years / Male INDICATIONS: MRI clearance. CLINICAL DATA: This is the patient's initial encounter. Patient reports that signs and symptoms have been present for 1 day and indicates a pain score of 0/10. MEDICAL/SURGICAL HISTORY: . Unobtainable. . Unobtainable. COMPARISON: No prior exams available for comparison. FINDINGS: 4 supine AP views of the abdomen. Surgical clips are seen in the upper quadrants. Bowel gas pattern within normal limits. Degenerative findings of the lumbar spine. CONCLUSION: Surgical clips in the upper abdomen. Bowel gas pattern within normal limits. Electronically signed by: Kyler Servin MD 01/04/2018 1:12 PM EDT
--- NOTE | 2018-01-04 14:05 | P.PNIM ---
Subjective Interval history: Patient remains intermittently confused today, still more awake compared to his postictal state yesterday. He had 2 seizures yesterday but has not had a recurrence of seizure today. He was unable to tolerate the MRI due to agitation. Physical Exam Vital signs: Vital Signs 01/03/18 15:00 01/03/18 16:30 01/03/18 17:00 Temperature Pulse Rate 60 Respiratory Rate 16 Blood Pressure 138/65 Pulse Oximetry 99 100 98 01/03/18 17:30 01/03/18 17:53 01/03/18 18:00 Temperature 97.3 F L Pulse Rate 59 L 58 L Respiratory Rate 17 16 Blood Pressure 140/69 135/75 Pulse Oximetry 96 98 98 01/03/18 20:00 01/03/18 20:54 01/03/18 21:00 Temperature 99.0 F Pulse Rate 68 72 69 Respiratory Rate 20 Blood Pressure 128/61 132/60 Pulse Oximetry 98 95 96 01/03/18 22:00 01/03/18 23:00 01/04/18 00:00 Temperature 98.5 F Pulse Rate 70 63 68 Respiratory Rate 19 Blood Pressure 135/62 121/59 L 124/58 L Pulse Oximetry 96 95 100 01/04/18 01:00 01/04/18 02:00 01/04/18 03:00 Temperature Pulse Rate 71 74 66 Respiratory Rate 18 41 H 18 Blood Pressure 131/61 128/59 L 133/63 Pulse Oximetry 97 96 01/04/18 04:00 01/04/18 04:01 01/04/18 06:00 Temperature 98.9 F Pulse Rate 88 84 68 Respiratory Rate 31 H 24 18 Blood Pressure 138/65 132/63 Pulse Oximetry 95 95 98 01/04/18 08:00 01/04/18 08:39 01/04/18 10:00 Temperature 99 F Pulse Rate 64 66 Respiratory Rate 20 22 Blood Pressure 125/59 L 130/60 Pulse Oximetry 96 100 Intake & Output 01/03/18 01/04/18 01/04/18 18:59 06:59 18:59 Intake Total 1500 / 1500 0 / 0 1000 / 1000 Output Total 0 / 0 225 / 225 Balance 1500 / 1500 -225 / -225 1000 / 1000 Weight 121.5 kg 119.6 kg Intake: IV 1500 / 1500 1000 / 1000 NS Inj 1,000 ML @ 60 mls/hr IV. 1000 / 1000 CONT .[id number] BARON Rx#:[id number] NS Inj 1,000 ML @ Wide Open IV. 1000 / 1000 SIG BOLUS ONE Rx#:[id number] NS Inj 500 ML @ 1000 mls/hr IV. 500 / 500 SIG BOLUS BARON Rx#:[id number] Oral 0 / 0 0 / 0 Output: Urine 0 / 0 225 / 225 Other: # Incontinent Voids 2 Date of Last Bowel Movement 01/04/18 01/04/18 # Incontinent Bowel Movements 1 Weight On Admission 121.5 kg Narrative: GENERAL: still intermittently confused, sedated from Ativan, obese SKIN: Warm and dry, no rashes. HEAD: Atraumatic. Normocephalic. EYES: Pupils equal, round, sluggish to light. No scleral icterus. No injection or drainage. ENT: No nasal bleeding or discharge. Moist mucous membranes. Nonerythematous oropharynx. NECK: Trachea midline. No JVD. Thyroid size within normal limits. CARDIOVASCULAR: Regular rate and rhythm. No murmur, no gallops, no rubs. RESPIRATORY: Clear and equal to auscultation bilaterally. No crackles, no wheezes. No accessory muscle use. GASTROINTESTINAL: Abdomen soft, non-tender, nondistended, normal active bowel sounds. Hepatic and splenic margins not palpable. MUSCULOSKELETAL: Extremities without clubbing or cyanosis. No obvious deformities. Trace edema NEUROLOGICAL: No obvious cranial nerve deficits. Motor grossly within normal limits. No focal deficits. Patient is moving all 4 extremities, no obvious deficit with speech, he is somewhat sedated from Ativan. Results - Labs CBC & Chem 7: 01/04/18 05:48 01/04/18 05:48 Laboratory Results - last 24 hr 01/03/18 01/03/18 01/03/18 16:49 16:55 21:04 WBC RBC Hgb Hct MCV MCH MCHC RDW Plt Count MPV Sodium Potassium Chloride Carbon Dioxide Anion Gap BUN Creatinine Estimated GFR POC Glucose 125 H Random Glucose Lactic Acid Calcium Vitamin B12 499 Vitamin D 25-Hydroxy 23.7 L TSH 0.380 Nasal Screen MRSA (PCR) Not detected 01/04/18 01/04/18 01/04/18 04:54 05:48 05:48 WBC 8.6 D RBC 4.03 L Hgb 12.2 L Hct 36.2 L MCV 89.7 D MCH 30.2 MCHC 33.7 RDW 14.4 Plt Count 191 MPV 7.4 Sodium 146 H Potassium 3.2 L D Chloride 111 H Carbon Dioxide 28.1 Anion Gap 7 BUN 12 Creatinine 0.67 Estimated GFR Greater than 89 POC Glucose Random Glucose 105 Lactic Acid 1.0 Calcium 8.1 L D Vitamin B12 Vitamin D 25-Hydroxy TSH Nasal Screen MRSA (PCR) - Imaging Impressions Abdomen X-Ray 01/04/18 00:00 CONCLUSION: Surgical clips in the upper abdomen. Bowel gas pattern within normal limits. Chest X-Ray 01/04/18 00:00 CONCLUSION: Prominent hilar silhouettes right greater than left may represent prominent pulmonary vasculature. Recommend chest CT without contrast to exclude mass. Assessment and Plan - Plan New onset seizures Etiology is unclear, he 72 years old and this is his first occurrence with seizures Consider sleep deprivation, neighbors noted light has been on all night Consider black mold and [place] droppings in home Consider possibility of pesticides from eating 20 tomatoes week purchased at a [employer] market Consider history of gastric bypass surgery in 2010, B12, vitamin D, vitamin C are pending Vitamin B12, vitamin D are at acceptable levels, magnesium was within normal limits, TSH was normal RPR is still pending Patient is still confused and high maintenance from staff, keep in ICU until he is more alert and oriented Appreciate neurology consult Metabolic encephalopathy MRI of brain still pending to rule out small stroke Continue with supportive care Consider Ativan and postictal state DVT prophylaxis SCDs, chemoprophylaxis held due to active seizures
--- NOTE | 2018-01-04 14:05 | MB ---
cc: Maddie Guillen MD DATE: 01/03/2018 REASON FOR CONSULTATION: Change in mental status, possible seizure. HISTORY OF PRESENT ILLNESS: This is a 72-day year old man who comes in to the ER apparently after having a seizure during a police stop for erratic driving. He was driving [id number] in the street when they found him confused, and EMS was called. He was given Ativan and transferred to the hospital, had a CT that was unremarkable. Currently, came back from MRI. They were unable to do it because he was moving too much and received 2 mg of Ativan. He is lying on the bed in restraints, answering yes to everything but confused, fairly calm right now. There was some word about maybe having some sleep deprivation. It is not clear what actually happened to him, why he became so confused. PAST MEDICAL HISTORY: Unknown. I did ask him if he drinks, he says no, but I am not sure how reliable he is. There is some surgical history of gastric bypass and family history of hypertension. MEDICATIONS: We do not know. PHYSICAL EXAMINATION: On exam, currently his temperature is 99, pulse 66, respiratory rate 22, blood pressure 130/60. He is sleepy, arousable, answers yes and no incorrectly. He does not even know his date of . He is not slurred. Pupils are reactive. He does not have a facial droop. Difficult to assess, but he seems to move everything, arms and legs, but cannot follow strength testing. We will have to reassess that when he is out of restraints. LABORATORY DATA: Reviewed. His white count is normal. Hemoglobin is 12.2, hematocrit 36.2. Chemistry: Sodium 146, potassium 3.2. His calcium is 8.1. Lactic acid was 5 yesterday, today it is 1. Vitamin D is low at 23.7. TSH was normal. B12 of 499. MRSA screen not detected. Toxicology screen positive for benzodiazepines. Serology RPR is pending. IMAGING: Chest x-ray: Prominent pulmonary vascular. CT was recommended. Abdominal x-ray: Surgical clips in the upper abdomen. Head CT: Nothing acute. IMPRESSION: This is a 72-year-old male with change in mental status, unknown history, certainly rule out a stroke. He will need at some point to go back down for an MRI. The seizure etiology is unknown, but I would continue him on his Keppra if given Keppra in the ED. If not, consider giving him Keppra IV 500 mg twice a day. We can always stop that. Continue to monitor seizure precautions. Let us try to get MRI of the brain. I want to know if he has had any small strokes, embolic phenomenon, and further recommendations will be made accordingly. MD DAYANA Phelan/hayley , 01:28 PM , 01:36 PM
[2018-01-04 22:59] LABS: ABG Base Excess 2.7 mmol/L (-2-2); ABG PCO2 44 mmHg (38-42); ABG PO2 85 mmHG (61-120)
--- NOTE | 2018-01-04 23:11 | XR ---
EXAM DATE: 01/04/2018 11:03 PM EDT AGE/SEX: 72 years / Male INDICATIONS: Shortness of breath. CLINICAL DATA: This is the patient's subsequent encounter. Patient reports that signs and symptoms h ave been present for 2 days and indicates a pain score of Nonresponsive. MEDICAL/SURGICAL HISTORY: Non-responsive. Non-responsive. [place] [facility] [place]. . FINDINGS: Persistent vascular congestion, diffuse interstitial prominence and consolidation at the right lung b ase. Hilar prominence and prominence of the thoracic aorta. CT chest again recommended when clinicall y feasible for further evaluation. CONCLUSION: No significant change Electronically signed by: Gene Jean-Baptiste MD 01/04/2018 11:09 PM EDT
[2018-01-05] MEDS: Piperacil/Tazo 4.5 GM Premix 4.5 GM/100 ML BAG IV.SIG SCH ×4 (01:46→18:29)
[2018-01-05] MEDS ORDERED: Azithromycin Inj 500 MG in Sodium Chlor 0.9% Inj 250 ML IV.SIG SCH (02:00)
[2018-01-05 03:34] LABS: Baso % (Auto) 0.2 % (0.0-2.0); Eos % (Auto) 0.3 % (0.0-4.0); Hematocrit 45.2 % (39.0-51.0); Hemoglobin 15.2 gm/dL (13.0-17.0); Lymph # (Auto) 0.2 th/mm3 (1.0-4.8); Lymph % (Auto) 2.2 % (9.0-44.0); Mean Corpuscular HGB Conc 33.6 % (32.0-36.0); Mean Corpuscular Hemoglobin 30.3 pg (27.0-34.0); Mean Corpuscular Volume 90.3 fL (80.0-100.0); Mean Platelet Volume 7.7 fL (7.0-11.0); Mono # (Auto) 0.5 th/mm3 (0.0-0.9); Mono % (Auto) 4.8 % (0.0-8.0); Neut # (Auto) 8.9 th/mm3 (1.8-7.7); Neut % (Auto) 92.5 % (16.0-70.0); Platelet Count 190 th/mm3 (150-450); Red Blood Count 5.01 mil/mm3 (4.50-5.90); Red Cell Distribution Width 14.9 % (11.6-17.2); White Blood Count 9.6 th/mm3 (4.0-11.0)
[2018-01-05 03:37] LABS: Bacteria,Urine Rare /hpf; Bilirubin,Urine Negative (Negative); Clarity,Urine Clear (Clear); Color,Urine Colorless (Yellw/Straw); Glucose,Urine (UA) Negative (Negative); Hyaline Casts,Urine 4 /lpf (0-3); Leukocyte Esterase,Urine Negative (Negative); Mucus,Urine Few /lpf (Occasional); Nitrite,Urine Negative (Negative); Specific Gravity,Urine 1.005 (1.002-1.035); Squamous Epithelial Cell,Urine <1 /hpf (0-5)
[2018-01-05 03:49] LABS: Alanine Aminotransferase 32 U/L (12-78); Albumin 3.4 g/dL (3.4-5.0); Anion Gap 5 meq/L (5-15); Aspartate Aminotransferase 36 U/L (15-37); Blood Urea Nitrogen 12 mg/dL (7-18); Calcium 8.5 mg/dL (8.5-10.1); Chloride 104 meq/L (98-107); Glomerular Filtration Rate 54 mL/min (>89); Glucose,Random 122 mg/dL (74-106); Magnesium 1.9 mg/dL (1.5-2.5); Potassium 3.6 meq/L (3.5-5.1); Sodium 144 meq/L (136-145)
[2018-01-05 03:51] LABS: Alkaline Phosphatase 83 U/L (45-117); Total Protein 8.5 g/dL (6.4-8.2)
[2018-01-05] MEDS: Famotidine 20 MG Tablet PO SCH ×2 (09:14→20:48)
[2018-01-05] MEDS: Famotidine PF Inj 20 MG/2 ML Vial IV.PUSH SCH ×2 (09:15→20:48)
[2018-01-05] MEDS ORDERED: Haloperidol Inj 5 MG/ML Ampul IV.PUSH PRN (12:00)
--- NOTE | 2018-01-05 12:45 | P.PNIM ---
Subjective Interval history: Patient was unable to endure a MRI yesterday due to agitation. Nurse reports a fever today of 102. Patient is being covered with Zosyn and azithromycin empirically. He has exhibited no new seizure activity but remains confused. Physical Exam Vital signs: Vital Signs 01/04/18 16:00 01/04/18 18:45 01/04/18 19:00 Temperature 98.8 F Pulse Rate 97 H 100 H 107 H Respiratory Rate 34 H 42 H 35 H Blood Pressure 149/80 H Pulse Oximetry 98 95 93 L 01/04/18 20:00 01/04/18 21:00 01/04/18 22:00 Temperature 102.9 F H Pulse Rate 99 H 95 H 99 H Respiratory Rate 33 H 20 31 H Blood Pressure 169/84 H Pulse Oximetry 95 97 97 01/04/18 23:00 01/05/18 00:00 01/05/18 01:00 EST Temperature 100.4 F H Pulse Rate 98 H 92 H 88 Respiratory Rate 12 26 H 26 H Blood Pressure 132/74 Pulse Oximetry 89 L 93 L 92 L 01/05/18 02:00 01/05/18 03:00 01/05/18 04:00 Temperature 100.8 F H Pulse Rate 91 H 93 H 96 H Respiratory Rate 24 28 H 31 H Blood Pressure 120/70 123/59 L Pulse Oximetry 94 L 98 92 L 01/05/18 05:00 01/05/18 08:00 01/05/18 12:00 Temperature 102.2 F H Pulse Rate 92 H 90 87 Respiratory Rate 31 H 28 H 29 H Blood Pressure 119/59 L 122/68 153/70 H Pulse Oximetry 91 L 90 L 92 L Intake & Output 01/04/18 01/05/18 01/05/18 19:59 06:59 18:59 Intake Total 450 / 450 Output Total Balance 450 / 450 Weight Intake: IV 450 / 450 NS Inj 1,000 ML @ 60 mls/hr IV. CONT .[id number] [facility] Rx#:[id number] Ofirmev Inj 1,000 mg In 100 ml 100 / 100 @ 400 mls/hr IV.SIG ONCE ONE Rx #:[id number] Azithromycin Inj 500 MG In NS 250 / 250 Inj 250 ML @ 250 mls/hr IV.SIG Q24H [facility] Rx#:[id number] Zosyn 4.5 GM Premix 4.5 gm In 100 / 100 100 ml @ 200 mls/hr IV.SIG Q6H [facility] Rx#:[id number] Output: Urine Other: # Urine Diapers Date of Last Bowel Movement 01/04/18 # Incontinent Bowel Movements Narrative: GENERAL: Mostly obtunded, obese SKIN: Warm and dry, no rashes. HEAD: Atraumatic. Normocephalic. EYES: Pupils equal, round, sluggish to light. No scleral icterus. No injection or drainage. ENT: No nasal bleeding or discharge. Moist mucous membranes. Nonerythematous oropharynx. NECK: Trachea midline. No JVD. Thyroid size within normal limits. CARDIOVASCULAR: Regular rate and rhythm. No murmur, no gallops, no rubs. RESPIRATORY: Clear and equal to auscultation bilaterally. No crackles, no wheezes. No accessory muscle use. GASTROINTESTINAL: Abdomen soft, non-tender, nondistended, normal active bowel sounds. Hepatic and splenic margins not palpable. MUSCULOSKELETAL: Extremities without clubbing or cyanosis. No obvious deformities. Trace edema NEUROLOGICAL: No obvious cranial nerve deficits. Motor grossly within normal limits. No focal deficits. Patient is moving all 4 extremities, no obvious deficit with speech, he is somewhat sedated from Ativan. Results - Labs CBC & Chem 7: 01/05/18 03:21 01/05/18 03:21 Laboratory Results - last 24 hr 01/04/18 01/05/18 01/05/18 22:43 00:45 03:21 WBC 9.6 RBC 5.01 Hgb 15.2 D Hct 45.2 MCV 90.3 MCH 30.3 MCHC 33.6 RDW 14.9 Plt Count 190 MPV 7.7 Neut % (Auto) 92.5 H Lymph % (Auto) 2.2 L Pendleton % (Auto) 4.8 Eos % (Auto) 0.3 Baso % (Auto) 0.2 Neut # (Auto) 8.9 H Lymph # (Auto) 0.2 L Pendleton # (Auto) 0.5 Eos # (Auto) 0.0 Baso # (Auto) 0.0 WBC Differential . Differential Comment Auto diff final Puncture Site Left radial Patient Temperature 98.6 O2 Saturation 92 ABG pH 7.41 ABG pCO2 44 H ABG pO2 85 ABG HCO3 27 H ABG O2 Content 17.3 ABG Base Excess 2.7 H ABG Methemoglobin 2.8 H Mahin Test Present Hemoglobin 13.4 Carboxyhemoglobin 0.6 O2 Delivery Device Nasal cannula Liter Flow 3.00 Critical Value No Sodium Potassium Chloride Carbon Dioxide Anion Gap BUN Creatinine Estimated GFR Random Glucose Lactic Acid Calcium Magnesium Total Bilirubin AST ALT Alkaline Phosphatase Total Protein Albumin Urine Color Colorless Urine Clarity Clear Urine pH 5.0 Ur Specific Sutter 1.005 Urine Protein Negative Urine Glucose (UA) Negative Urine Ketones Negative Urine Occult Blood Small H Urine Nitrate Negative Urine Bilirubin Negative Urine Urobilinogen Less than 2 Ur Leukocyte Esterase Negative Urine RBC 1 Urine WBC 1 Ur Squamous Epith Cells <1 Urine Bacteria Rare H Hyaline Casts 4 Urine Mucus Few H Micro UA Comment Cath-culture ind Ur Microscopic Review Not Reportable Urine Culture Comments Cath-cult indicated 01/05/18 01/05/18 03:21 03:21 WBC RBC Hgb Hct MCV MCH MCHC RDW Plt Count MPV Neut % (Auto) Lymph % (Auto) Pendleton % (Auto) Eos % (Auto) Baso % (Auto) Neut # (Auto) Lymph # (Auto) Pendleton # (Auto) Eos # (Auto) Baso # (Auto) WBC Differential Differential Comment Puncture Site Patient Temperature O2 Saturation ABG pH ABG pCO2 ABG pO2 ABG HCO3 ABG O2 Content ABG Base Excess ABG Methemoglobin Mahin Test Hemoglobin Carboxyhemoglobin O2 Delivery Device Liter Flow Critical Value Sodium 144 Potassium 3.6 Chloride 104 Carbon Dioxide 35.0 H Anion Gap 5 BUN 12 Creatinine 1.31 H Estimated GFR 54 L Random Glucose 122 H Lactic Acid 1.4 Calcium 8.5 Magnesium 1.9 Total Bilirubin 1.7 H AST 36 ALT 32 Alkaline Phosphatase 83 Total Protein 8.5 H Albumin 3.4 Urine Color Urine Clarity Urine pH Ur Specific Sutter Urine Protein Urine Glucose (UA) Urine Ketones Urine Occult Blood Urine Nitrate Urine Bilirubin Urine Urobilinogen Ur Leukocyte Esterase Urine RBC Urine WBC Ur Squamous Epith Cells Urine Bacteria Hyaline Casts Urine Mucus Micro UA Comment Ur Microscopic Review Urine Culture Comments - Imaging Impressions Chest X-Ray 01/04/18 22:32 CONCLUSION: No significant change Assessment and Plan - Plan New onset seizures Etiology is unclear, he 72 years old and this is his first occurrence with seizures Consider sleep deprivation, neighbors noted light has been on all night Consider black mold and Camacho droppings in home Consider possibility of pesticides from eating 20 tomatoes week purchased at a [employer] Consider history of gastric bypass surgery in 2010, B12, vitamin D, vitamin C are pending Vitamin B12, vitamin D are at acceptable levels, magnesium was within normal limits, TSH was normal RPR is still pending Patient is still confused and high maintenance from staff, keep in ICU until he is more alert and oriented Appreciate neurology consult Fever Lactic acid within normal limits Covered empirically with azithromycin and Zosyn Discontinue azithromycin and replaced with vancomycin for MRSA coverage Add Diflucan Monitor vitals Respiratory distress Nurse reports some respiratory distress overnight, IV fluids discontinued Metabolic encephalopathy MRI of brain still pending to rule out small stroke Patient was unable to tolerate MRI, will try again today with Haldol Continue with supportive care Consider Ativan and postictal state DVT prophylaxis SCDs, chemoprophylaxis held due to active seizures
--- NOTE | 2018-01-05 13:39 | MR ---
EXAM DATE: 01/05/2018 1:30 PM EST AGE/SEX: 72 years / Male INDICATIONS: Seizures. Altered mental status. CLINICAL DATA: This is the patient's initial encounter. Patient reports that signs and symptoms have been present for 1 day and indicates a pain score of 0/10. MEDICAL/SURGICAL HISTORY: . Unknown. Gastric bypass. [place] [facility] [place]. . TECHNIQUE: Multiplanar, multisequence examination of the brain was performed without contrast. FINDINGS: Cerebrum: The ventricles are normal for age. No evidence of midline shift, mass lesion, hemorrhage or acute infarction. No extraaxial fluid collections are seen. The pituitary gland and suprasellar cistern are normal in configuration. White Matter: No significant signal abnormalities are seen in the white matter. Posterior Fossa: The cerebellum and brainstem are intact. The 4th ventricle is midline. The cerebel lopontine angle is unremarkable. The cerebellar tonsils are normal in position. Diffusion Imaging: No focal areas of restricted diffusion are seen. No evidence of acute infarction . Extracranial: The visualized portions of the orbits and paranasal sinuses are unremarkable. CONCLUSION: 1. Negative MR Brain non contrast. 2. No evidence of acute infarct, hemorrhage, mass or edema. Electronically signed by: Paulo Solorio MD 01/05/2018 1:38 PM EST
[2018-01-05] MEDS: Vancomycin Inj 1,000 MG in Sodium Chlor 0.9% Inj 250 ML IV.SIG SCH (13:42)
--- NOTE | 2018-01-05 18:14 | CT ---
EXAM DATE: 01/05/2018 6:05 PM EST AGE/SEX: 72 years / Male INDICATIONS: Shortness of Breath, Elevated D-Dimer CLINICAL DATA: This is the patient's initial encounter. Patient reports that signs and symptoms have been present for 2 days and indicates a pain score of 0/10. MEDICAL/SURGICAL HISTORY: Seizures. Gastric bypass. RADIATION DOSE: 10.60 CTDI (mGy) COMPARISON: [facility] – [place], [place]ST 1V SINGLE AP, 01/04/2018. . TECHNIQUE: Volumetric scanning was performed using a multi-row detector CT scanner during bolus infu claudette of 70ML ml Omnipaque 350 (iohexol) nonionic water-soluble contrast as a single exam dose. The d seferino was post processed with a variety of visualization algorithms including full volume maximum inten sity projection and sliding thin slab reformation. Using automated exposure control and adjustment o f the mA and/or kV according to patient size, radiation dose was kept as low as reasonably achievable to obtain optimal diagnostic quality images. DICOM format image data is available electronically fo r review and comparison. FINDINGS: There is no pulmonary embolus. Small, bilateral pleural effusions. There is compressive/dependent appearing atelectasis of both lowe r lobes. Very mild, patchy parenchymal consolidation seen in the mid and upper lungs. 3.1 cm area of mildly masslike consolidation seen in the right lower lobe and appears to have some faint enhancement or calcification centrally. If this is enhancement, a dedicated represent a pulmonary vascular malfo rmation. No pneumothorax. Heart size within normal limits. Coronary artery calcification noted. No pathologic-appearing mediastinal, hilar or axillary lymphadenopathy. No acute abnormality seen in the upper abdomen. Gastric bypass changes are noted. CONCLUSION: 1. No pulmonary embolus. 2. Small bilateral pleural effusions. Dependent/compressive appearing atelectasis of both lower lobe s. 3. Patchy nonspecific parenchymal opacities of both lungs. There is a 3.1 cm nodular area of the rig ht lower lobe, nonspecific but most likely infectious or inflammatory, possibly a vascular malformati on. Comparison to any previous outside facility chest CTs would be helpful. Three-month follow-up non contrast chest CT is recommended if there are no priors. 4. Coronary artery calcification. Electronically signed by: Gene Ortiz MD 01/05/2018 6:12 PM EST
[2018-01-05] MEDS ORDERED: Metoprolol Inj 5 MG/5 ML Vial IV.PUSH ONE (19:01)
[2018-01-05] MEDS ORDERED: Digoxin Inj 500 MCG/2 ML Ampul IV.PUSH ONE (19:01)
[2018-01-05] MEDS ORDERED: Digoxin Inj 500 MCG/2 ML Ampul ONE (19:04)
[2018-01-06] MEDS: Piperacil/Tazo 4.5 GM Premix 4.5 GM/100 ML BAG IV.SIG SCH ×2 (01:14→06:16)
[2018-01-06 05:17] LABS: Hematocrit 43.8 % (39.0-51.0); Hemoglobin 14.6 gm/dL (13.0-17.0); Mean Corpuscular HGB Conc 33.4 % (32.0-36.0); Mean Corpuscular Hemoglobin 30.2 pg (27.0-34.0); Mean Corpuscular Volume 90.4 fL (80.0-100.0); Mean Platelet Volume 8.2 fL (7.0-11.0); Platelet Count 168 th/mm3 (150-450); Red Blood Count 4.84 mil/mm3 (4.50-5.90); Red Cell Distribution Width 14.8 % (11.6-17.2); White Blood Count 6.6 th/mm3 (4.0-11.0)
[2018-01-06 05:43] LABS: Carbon Dioxide 35.4 meq/L (21.0-32.0)
[2018-01-06 05:54] LABS: Potassium 2.8 meq/L (3.5-5.1)
[2018-01-06] MEDS: Potassium Chlor 20 mEq Premix 20 MEQ/100 ML PIGGYBACK IV.SIG SCH ×4 (06:47→13:47)
[2018-01-06] MEDS: Famotidine 20 MG Tablet PO SCH ×2 (08:19→20:30)
[2018-01-06] MEDS: Famotidine PF Inj 20 MG/2 ML Vial IV.PUSH SCH ×2 (08:19→20:29)
--- NOTE | 2018-01-06 10:35 | P.CONID ---
History of Present Illness Service: Infectious Disease Consult date: 01/06/18 Requesting Physician: Austen Coles Reason for Consult: Evaluation and Mment of fever and Altered mental status. Primary Care Provider: UNKNOWN History of Present Illness: is a 72 y/o CM with [place] significant past medical [place] at the bedside who provided most of the history. Patient was reportedly brought to the ER after having a seizure during a police stop over for erratic driving. He was reportedly driving [id number] on the [address] and when police interviewed him he appeared to be confused and therefore EMS was called. He was given Ativan and transferred to [place] emergency room where he had a second seizure which was described as tonic-clonic in the ER physician's note. Patient reports to me that he was doing fairly okay until Saturday morning. He remembers driving his car on Saturday as well as prior to admission to the local grocery store. He does not remember any fever chills or night sweats. He denies any headaches. Upon discussion with the patient's neighbors it appears that they had taken the patient dinner approximately a week prior to admission and they last saw him 2-3 days prior to admission where he appeared to be at his baseline mental status. Patient's neighbors go on to report that his living conditions are very questionable and patient appears to be somewhat of a quarter. Patient neighbors have noticed mold in his home as well as rat droppings. No prior history of stroke No prior history of seizures No fever chills or night sweats prior to admission. No change in appetite or loss of weight recently. No recent surgeries or any dental procedures. Patient has been seen by neurologist. An MRI was done which was reported as normal with no bleed or abscess. Patient also had an EEG with abnormal activity suggestive of encephalopathic process but no epileptiform activity. Blood cultures on admission are negative so far. All other cultures so far are negative. Due to persistent fevers as well as altered mental status infectious disease was consulted for further evaluation and management. Review of Systems unobtainable due to mental status PMFSH - History History Provided By: [employer] Area [employer] Systems Administrator / EMT - Medical History Medical History: Medical History (Last Updated 01/03/18 @ 10:12 by Carole Giang RN) Medical history unknown Surgical history unknown - Surgical History Surgical History: Surgical History (Last Updated 01/03/18 @ 12:57 by Austen Coles MD) H/O gastric bypass - Family History Family History: Family History (Last Updated 01/03/18 @ 12:57 by Austen Coles MD) Other Hypertension - Tobacco History Smoking Status: Unknown if ever smoked - Alcohol History How Often Do You Have a Drink Containing Alcohol: Unable to Obtain - Substance Use History Substance History: Unable to Obtain - Travel History Recent Travel in the [place] Within the Last 8 Weeks: No Recent Travel Out of the Country Within the Last 8 Weeks: No - Immunization History Tetanus Immunization: Unable to Assess Medications and Allergies Active Medications: Active Medications Acetaminophen (Tylenol) 650 mg PO Q6H PRN PRN Reason: PAIN 1-10 AND/OR FEVER >101F Albuterol (Duoneb Neb (Prn)) 1 ampul NEB Q2HR NEB PRN PRN Reason: SHORTNESS OF BREATH/WHEEZING Famotidine (Pepcid Pf Inj) 20 mg IV.PUSH Q12HR [facility] Last Admin: 01/06/18 08:19 Dose: 20 mg Famotidine (Pepcid) 20 mg PO BID [facility] Last Admin: 01/06/18 08:19 Dose: Not Given Haloperidol Lactate (Haldol Inj) 2 mg IV.PUSH ONCE PRN PRN Reason: MRI Agitation Stop: 01/06/18 11:59 Last Admin: 01/05/18 12:40 Dose: 2 mg Piperacillin/Tazobactam/Dextrose (Zosyn 4.5 Gm Premix) 4.5 gm in 100 mls @ 200 mls/hr IV.SIG Q6H [facility] Last Admin: 01/06/18 06:16 Dose: 100 mls/hr Vancomycin HCl 1,000 mg/ (Sodium Chloride) 250 mls @ 250 mls/hr IV.SIG Q24H [facility] Last Infusion: 01/05/18 15:21 Dose: Infused Fluconazole (Diflucan 200 Mg Premix Bag) 100 mls @ 100 mls/hr IV.SIG Q24H [facility] Last Admin: 01/05/18 20:48 Dose: 100 mls/hr Potassium Chloride (Kcl 20 Meq Premix Inj) 20 meq in 100 mls @ 50 mls/hr IV.SIG Q2H [facility] Stop: 01/06/18 14:29 Last Admin: 01/06/18 08:53 Dose: 50 mls/hr Lorazepam (Ativan Inj) 2 mg IV.PUSH Q4H PRN PRN Reason: Agitation/sedation Last Admin: 01/05/18 13:00 Dose: 2 mg Lorazepam (Ativan Inj) 2 mg IV.PUSH ONCE PRN PRN Reason: SEIZURES Ondansetron HCl (Zofran Inj) 4 mg IV.PUSH Q6H PRN PRN Reason: NAUSEA OR VOMITING Sennosides (Senokot) 17.2 mg PO Q12H PRN PRN Reason: Moderate Constipation Sodium Chloride (Ns Flush) 2 ml IV.FLUSH BID [facility] Last Admin: 01/06/18 08:18 Dose: 2 ml Sodium Chloride (Ns Flush) 2 ml IV.FLUSH UNSCH PRN PRN Reason: FLUSH AFTER USING IV ACCESS Allergies Allergy/AdvReac Type Severity Reaction Status Date / Time No Known Allergies Allergy Verified 01/03/18 10:11 Home Medications Medication Instructions Recorded Confirmed Type Unable to Obtain Home Meds 01/03/18 01/03/18 History Exam Vital signs: Vital Signs 01/05/18 11:00 01/05/18 12:00 01/05/18 13:27 Temperature Pulse Rate 86 89 88 Respiratory Rate 25 H 26 H Blood Pressure 118/66 123/74 Pulse Oximetry 91 L 91 L 96 01/05/18 13:32 01/05/18 14:00 01/05/18 15:00 Temperature Pulse Rate 92 H 86 85 Respiratory Rate 23 24 26 H Blood Pressure 114/55 L 118/59 L 124/68 Pulse Oximetry 95 94 L 96 01/05/18 16:00 01/05/18 16:03 01/05/18 17:00 Temperature 101.4 F H 98.9 F Pulse Rate 86 81 85 Respiratory Rate 22 21 22 Blood Pressure 110/54 L 121/56 L Pulse Oximetry 97 97 96 01/05/18 18:00 01/05/18 18:14 01/05/18 19:00 Temperature Pulse Rate 92 H 90 141 H Respiratory Rate 29 H 21 23 Blood Pressure 115/57 L Pulse Oximetry 91 L 97 97 01/05/18 19:02 01/05/18 19:07 01/05/18 19:10 Temperature Pulse Rate 137 H 128 H Respiratory Rate 20 19 Blood Pressure 88/51 L 117/62 Pulse Oximetry 97 95 97 11/04/18 19:13 01/05/18 19:14 01/05/18 19:15 Temperature Pulse Rate 134 H 133 H 108 H Respiratory Rate 20 22 19 Blood Pressure 113/56 L 112/62 118/56 L Pulse Oximetry 97 97 97 01/05/18 19:20 01/05/18 19:25 01/05/18 19:30 Temperature Pulse Rate 112 H 108 H 113 H Respiratory Rate 27 H 23 22 Blood Pressure 128/61 134/59 L 123/56 L Pulse Oximetry 97 97 97 01/05/18 20:00 01/05/18 20:31 01/05/18 20:35 Temperature 102.1 F H Pulse Rate 125 H 138 H 101 H Respiratory Rate 36 H 29 H Blood Pressure 120/83 123/70 Pulse Oximetry 96 98 94 L 01/05/18 20:40 01/05/18 20:45 01/05/18 20:50 Temperature Pulse Rate 98 H 97 H 97 H Respiratory Rate 27 H 26 H 28 H Blood Pressure 114/61 114/60 121/58 L Pulse Oximetry 96 97 97 01/05/18 20:55 01/05/18 21:00 01/05/18 21:05 Temperature Pulse Rate 98 H 105 H 98 H Respiratory Rate 27 H 35 H 28 H Blood Pressure 124/60 131/66 118/64 Pulse Oximetry 97 97 98 01/05/18 21:10 01/05/18 21:15 01/05/18 21:20 Temperature Pulse Rate 97 H 99 H 98 H Respiratory Rate 26 H 28 H 26 H Blood Pressure 111/59 L 114/67 108/61 Pulse Oximetry 98 98 98 01/05/18 21:25 01/05/18 21:30 01/05/18 21:35 Temperature Pulse Rate 97 H 97 H 92 H Respiratory Rate 25 H 26 H 26 H Blood Pressure 111/57 L 117/61 132/59 L Pulse Oximetry 98 99 98 01/05/18 21:40 01/05/18 21:45 01/05/18 21:50 Temperature Pulse Rate 94 H 103 H 95 H Respiratory Rate 26 H 26 H 28 H Blood Pressure 126/58 L 133/62 122/66 Pulse Oximetry 98 97 98 01/05/18 21:55 01/05/18 22:00 01/05/18 22:05 Temperature Pulse Rate 93 H 100 H 102 H Respiratory Rate 26 H 31 H 28 H Blood Pressure 122/59 L 115/67 120/56 L Pulse Oximetry 98 97 93 L 01/05/18 22:10 01/05/18 22:31 01/05/18 23:00 Temperature Pulse Rate 93 H 101 H 94 H Respiratory Rate 25 H 26 H 21 Blood Pressure 122/57 L 136/61 128/63 Pulse Oximetry 96 98 97 01/05/18 23:30 01/06/18 00:00 01/06/18 00:30 Temperature Pulse Rate 91 H 89 86 Respiratory Rate 24 23 22 Blood Pressure 129/68 136/63 120/62 Pulse Oximetry 98 94 L 94 L 01/06/18 01:00 01/06/18 01:30 01/06/18 02:00 Temperature Pulse Rate 84 80 78 Respiratory Rate 19 25 H 19 Blood Pressure 125/66 123/66 139/61 Pulse Oximetry 94 L 88 L 92 L 01/06/18 02:30 01/06/18 03:00 01/06/18 03:30 Temperature Pulse Rate 81 78 78 Respiratory Rate 18 15 17 Blood Pressure 126/70 117/73 122/71 Pulse Oximetry 94 L 97 97 01/06/18 04:00 01/06/18 04:30 01/06/18 05:00 Temperature 98.3 F Pulse Rate 76 77 75 Respiratory Rate 18 21 17 Blood Pressure 133/61 126/77 133/64 Pulse Oximetry 90 L 86 L 96 01/06/18 05:30 01/06/18 06:00 01/06/18 06:01 Temperature Pulse Rate 107 H 110 H 114 H Respiratory Rate 18 19 21 Blood Pressure 142/66 H 131/60 Pulse Oximetry 94 L 93 L 94 L 01/06/18 06:30 01/06/18 07:00 01/06/18 07:30 Temperature Pulse Rate 110 H 106 H 82 Respiratory Rate 17 20 19 Blood Pressure 124/60 123/66 109/69 Pulse Oximetry 97 98 97 01/06/18 08:00 01/06/18 08:30 01/06/18 09:00 Temperature 97.7 F Pulse Rate 82 75 76 Respiratory Rate 23 19 22 Blood Pressure 113/66 114/61 122/77 Pulse Oximetry 98 97 97 Intake & Output 01/05/18 01/06/18 01/06/18 18:59 06:59 18:59 Intake Total 800 / 800 200 / 200 100 / 100 Output Total 375 / 375 2079 Balance 425 / 425 -1880 / -1880 100 / 100 Weight 116.1 kg Intake: IV 800 / 800 200 / 200 100 / 100 Ofirmev Inj 1,000 mg In 100 ml 100 / 100 @ 400 mls/hr IV.SIG ONCE [facility] Rx #:[id number] Azithromycin Inj 500 MG In NS 250 / 250 Inj 250 ML @ 250 mls/hr IV.SIG Q24H [facility] Rx#:[id number] Zosyn 4.5 GM Premix 4.5 gm In 200 / 200 200 / 200 100 ml @ 200 mls/hr IV.SIG Q6H [facility] Rx#:[id number] KCl 20 mEq Premix Inj 20 meq In 100 / 100 100 ml @ 50 mls/hr IV.SIG Q2H [facility] Rx#:[id number] Vancomycin Inj 1,000 MG In NS 250 / 250 Inj 250 ML @ 250 mls/hr IV.SIG Q24H [facility] Rx#:[id number] Output: Urine 375 / 375 2079 Other: Date of Last Bowel Movement 01/04/18 01/04/18 01/04/18 # Bowel Movements 0 Narrative: GENERAL: Poorly kempt, well-nourished well-developed, not in acute distress SKIN: Cool and dry, no generalized rash HEAD: Atraumatic. Normocephalic. No temporal or scalp tenderness. EYES: Pupils equal round and reactive. Scleral icterus. No injection or drainage. No petechia ENT: Nothing abnormal detected. NECK: Trachea midline. Supple, nontender, no meningeal signs. CARDIOVASCULAR: HS audible. RESPIRATORY: Clear to auscultation bilaterally. GASTROINTESTINAL: Abdomen soft nontender. MUSCULOSKELETAL: Extremities without clubbing, cyanosis. NEUROLOGICAL: Alert oriented 2. Nonfocal. Psych cooperative IV line sites ok. Results - Labs CBC & Chem 7: 01/06/18 04:00 01/06/18 04:00 Labs: Laboratory Results - last 24 hr 01/05/18 01/05/18 01/06/18 14:32 20:23 04:00 WBC 6.6 RBC 4.84 Hgb 14.6 Hct 43.8 MCV 90.4 MCH 30.2 MCHC 33.4 RDW 14.8 Plt Count 168 MPV 8.2 D-Dimer Quant (PE/DVT) 3.83 H Sodium Potassium Chloride Carbon Dioxide Anion Gap BUN Creatinine Estimated GFR Random Glucose Calcium Troponin I Less than 0.02 L 01/06/18 04:00 WBC RBC Hgb Hct MCV MCH MCHC RDW Plt Count MPV D-Dimer Quant (PE/DVT) Sodium 149 H Potassium 2.8 L* D Chloride 105 Carbon Dioxide 35.4 H Anion Gap 9 BUN 21 H Creatinine 0.96 Estimated GFR 77 L Random Glucose 106 Calcium 8.0 L Troponin I - Imaging Impressions Chest CTA 01/05/18 00:00 CONCLUSION: 1. No pulmonary embolus. 2. Small bilateral pleural effusions. Dependent/compressive appearing atelectasis of both lower lobes. 3. Patchy nonspecific parenchymal opacities of both lungs. There is a 3.1 cm nodular area of the right lower lobe, nonspecific but most likely infectious or inflammatory, possibly a vascular malformation. Comparison to any previous outside facility chest CTs would be helpful. Three-month follow-up noncontrast chest CT is recommended if there are no priors. 4. Coronary artery calcification. Head MRI 01/05/18 00:00 CONCLUSION: 1. Negative MR Brain non contrast. 2. No evidence of acute infarct, hemorrhage, mass or edema. Assessment and Plan - Plan Sepsis Fever with altered mental status rule out meningoencephalitis Aspiration pneumonia or community-acquired pneumonia. High risk for aspiration. Acute metabolic encephalopathy sepsis rule out encephalitis Acute renal failure now resolved creatinine improved Recommendations Discussed with Dr. Coles in my opinion is medically necessary to obtain CSF fluid by performing a lumbar puncture. Also discussed case with Dr. Guillen. Patient does not have a power of patent prosecution attorney so palliative care consult was placed as patient is still confused and there is a concern for meningitis it would not be appropriate for patient to sign a power of patent prosecution attorney at the present time. Check fungal blood cultures(neighbors report concern for mold extensively in the house) Check HIV antibody screen patient consented (please do not disclose results to anyone) Check Hepatitis profile. Check 2 D ECHO Start Acyclovir IV (pending CSF HSV 1/2 PCR) Dc Zosyn IV Continue Vanco IV target trough 15-20 Start Ceftriaxone IV Extensive discussion with patients neighbors. ileana hostel manager, palliative care team. ileana RN dw MDs. Time in excess of 60 mins, critical thinking and decision making other than direct patient care.
[2018-01-06] MEDS: Vancomycin Inj 1,000 MG in Sodium Chlor 0.9% Inj 250 ML IV.SIG SCH (11:10)
--- NOTE | 2018-01-06 11:20 | P.PNIM ---
Subjective Interval history: Patient was able to speak with the nurse earlier this morning, still not oriented, but speech is intact. He has had fevers recurring. So far work up has been absent of any obvious etiology for his seizures and delirium. It is medically necessary to expand his work up by including a lumbar puncture study. Physical Exam Vital signs: Vital Signs 01/05/18 12:00 01/05/18 13:27 01/05/18 13:32 Temperature Pulse Rate 89 88 92 H Respiratory Rate 26 H 23 Blood Pressure 123/74 114/55 L Pulse Oximetry 91 L 96 95 01/05/18 14:00 01/05/18 15:00 01/05/18 16:00 Temperature 101.4 F H Pulse Rate 86 85 86 Respiratory Rate 24 26 H 22 Blood Pressure 118/59 L 124/68 Pulse Oximetry 94 L 96 97 01/05/18 16:03 01/05/18 17:00 01/05/18 18:00 Temperature 98.9 F Pulse Rate 81 85 92 H Respiratory Rate 21 22 29 H Blood Pressure 110/54 L 121/56 L Pulse Oximetry 97 96 91 L 01/05/18 18:14 01/05/18 19:00 01/05/18 19:02 Temperature Pulse Rate 90 141 H 137 H Respiratory Rate 21 23 20 Blood Pressure 115/57 L 88/51 L Pulse Oximetry 97 97 97 01/05/18 19:07 01/05/18 19:10 01/05/18 19:13 Temperature Pulse Rate 128 H 134 H Respiratory Rate 19 20 Blood Pressure 117/62 113/56 L Pulse Oximetry 95 97 97 01/05/18 19:14 01/05/18 19:15 01/05/18 19:20 Temperature Pulse Rate 133 H 108 H 112 H Respiratory Rate 22 19 27 H Blood Pressure 112/62 118/56 L 128/61 Pulse Oximetry 97 97 97 01/05/18 19:25 01/05/18 19:30 01/05/18 20:00 Temperature Pulse Rate 108 H 113 H 125 H Respiratory Rate 23 22 Blood Pressure 134/59 L 123/56 L Pulse Oximetry 97 97 96 01/05/18 20:31 01/05/18 20:35 01/05/18 20:40 Temperature 102.1 F H Pulse Rate 138 H 101 H 98 H Respiratory Rate 36 H 29 H 27 H Blood Pressure 120/83 123/70 114/61 Pulse Oximetry 98 94 L 96 01/05/18 20:45 01/05/18 20:50 01/05/18 20:55 Temperature Pulse Rate 97 H 97 H 98 H Respiratory Rate 26 H 28 H 27 H Blood Pressure 114/60 121/58 L 124/60 Pulse Oximetry 97 97 97 01/05/18 21:00 01/05/18 21:05 01/05/18 21:10 Temperature Pulse Rate 105 H 98 H 97 H Respiratory Rate 35 H 28 H 26 H Blood Pressure 131/66 118/64 111/59 L Pulse Oximetry 97 98 98 01/05/18 21:15 01/05/18 21:20 01/05/18 21:25 Temperature Pulse Rate 99 H 98 H 97 H Respiratory Rate 28 H 26 H 25 H Blood Pressure 114/67 108/61 111/57 L Pulse Oximetry 98 98 98 01/05/18 21:30 01/05/18 21:35 01/05/18 21:40 Temperature Pulse Rate 97 H 92 H 94 H Respiratory Rate 26 H 26 H 26 H Blood Pressure 117/61 132/59 L 126/58 L Pulse Oximetry 99 98 98 01/05/18 21:45 01/05/18 21:50 01/05/18 21:55 Temperature Pulse Rate 103 H 95 H 93 H Respiratory Rate 26 H 28 H 26 H Blood Pressure 133/62 122/66 122/59 L Pulse Oximetry 97 98 98 01/05/18 22:00 01/05/18 22:05 01/05/18 22:10 Temperature Pulse Rate 100 H 102 H 93 H Respiratory Rate 31 H 28 H 25 H Blood Pressure 115/67 120/56 L 122/57 L Pulse Oximetry 97 93 L 96 01/05/18 22:31 01/05/18 23:00 01/05/18 23:30 Temperature Pulse Rate 101 H 94 H 91 H Respiratory Rate 26 H 21 24 Blood Pressure 136/61 128/63 129/68 Pulse Oximetry 98 97 98 01/06/18 00:00 01/06/18 00:30 01/06/18 01:00 Temperature Pulse Rate 89 86 84 Respiratory Rate 23 22 19 Blood Pressure 136/63 120/62 125/66 Pulse Oximetry 94 L 94 L 94 L 01/06/18 01:30 01/06/18 02:00 01/06/18 02:30 Temperature Pulse Rate 80 78 81 Respiratory Rate 25 H 19 18 Blood Pressure 123/66 139/61 126/70 Pulse Oximetry 88 L 92 L 94 L 01/06/18 03:00 01/06/18 03:30 01/06/18 04:00 Temperature 98.3 F Pulse Rate 78 78 76 Respiratory Rate 15 17 18 Blood Pressure 117/73 122/71 133/61 Pulse Oximetry 97 97 90 L 01/06/18 04:30 01/06/18 05:00 01/06/18 05:30 Temperature Pulse Rate 77 75 107 H Respiratory Rate 21 17 18 Blood Pressure 126/77 133/64 142/66 H Pulse Oximetry 86 L 96 94 L 01/06/18 06:00 01/06/18 06:01 01/06/18 06:30 Temperature Pulse Rate 110 H 114 H 110 H Respiratory Rate 19 21 17 Blood Pressure 131/60 124/60 Pulse Oximetry 93 L 94 L 97 01/06/18 07:00 01/06/18 07:30 01/06/18 08:00 Temperature 97.7 F Pulse Rate 106 H 82 82 Respiratory Rate 20 19 23 Blood Pressure 123/66 109/69 113/66 Pulse Oximetry 98 97 98 01/06/18 08:30 01/06/18 09:00 Temperature Pulse Rate 75 76 Respiratory Rate 19 22 Blood Pressure 114/61 122/77 Pulse Oximetry 97 97 Intake & Output 01/05/18 01/06/18 01/06/18 18:59 06:59 18:59 Intake Total 800 / 800 200 / 200 200 / 200 Output Total 375 / 375 2080 / 2080 Balance 425 / 425 -1880 / -1880 200 / 200 Weight 116.1 kg Intake: IV 800 / 800 200 / 200 200 / 200 Ofirmev Inj 1,000 mg In 100 ml 100 / 100 @ 400 mls/hr IV.SIG ONCE ONE Rx #:[id number] Azithromycin Inj 500 MG In NS 250 / 250 Inj 250 ML @ 250 mls/hr IV.SIG Q24H BARON Rx#:[id number] Zosyn 4.5 GM Premix 4.5 gm In 200 / 200 200 / 200 100 ml @ 200 mls/hr IV.SIG Q6H BARON Rx#:[id number] KCl 20 mEq Premix Inj 20 meq In 200 / 200 100 ml @ 50 mls/hr IV.SIG Q2H BARON Rx#:[id number] Vancomycin Inj 1,000 MG In NS 250 / 250 Inj 250 ML @ 250 mls/hr IV.SIG Q24H BARON Rx#:[id number] Output: Urine 375 / 375 2079 / 2079 Other: Date of Last Bowel Movement 01/04/18 01/04/18 01/04/18 # Bowel Movements 0 Narrative: GENERAL: obtunded, obese SKIN: Warm and dry, no rashes. HEAD: Atraumatic. Normocephalic. EYES: Pupils equal, round, sluggish to light. No scleral icterus. No injection or drainage. ENT: No nasal bleeding or discharge. Moist mucous membranes. Nonerythematous oropharynx. NECK: Trachea midline. No JVD. Thyroid size within normal limits. CARDIOVASCULAR: Regular rate and rhythm. No murmur, no gallops, no rubs. RESPIRATORY: Clear and equal to auscultation bilaterally. No crackles, no wheezes. No accessory muscle use. GASTROINTESTINAL: Abdomen soft, non-tender, nondistended, normal active bowel sounds. Hepatic and splenic margins not palpable. MUSCULOSKELETAL: Extremities without clubbing or cyanosis. No obvious deformities. Trace edema NEUROLOGICAL: No obvious cranial nerve deficits. Motor grossly within normal limits. No focal deficits. Patient is moving all 4 extremities, no obvious deficit with speech, mostly obtunded. Results - Labs CBC & Chem 7: 01/06/18 04:00 01/06/18 04:00 Laboratory Results - last 24 hr 01/05/18 01/05/18 01/06/18 14:32 20:23 04:00 WBC 6.6 RBC 4.84 Hgb 14.6 Hct 43.8 MCV 90.4 MCH 30.2 MCHC 33.4 RDW 14.8 Plt Count 168 MPV 8.2 D-Dimer Quant (PE/DVT) 3.83 H Sodium Potassium Chloride Carbon Dioxide Anion Gap BUN Creatinine Estimated GFR Random Glucose Calcium Troponin I Less than 0.02 L 01/06/18 04:00 WBC RBC Hgb Hct MCV MCH MCHC RDW Plt Count MPV D-Dimer Quant (PE/DVT) Sodium 149 H Potassium 2.8 L* D Chloride 105 Carbon Dioxide 35.4 H Anion Gap 9 BUN 21 H Creatinine 0.96 Estimated GFR 77 L Random Glucose 106 Calcium 8.0 L Troponin I Microbiology 01/04/18 23:53 Blood - Peripheral Aerobic Blood Culture - Preliminary No growth in 1 day 01/04/18 23:53 Blood - Peripheral Anaerobic Blood Culture - Preliminary No growth in 1 day 01/04/18 23:58 Blood - Peripheral Aerobic Blood Culture - Preliminary No growth in 1 day 01/04/18 23:58 Blood - Peripheral Anaerobic Blood Culture - Preliminary No growth in 1 day 01/05/18 23:00 Nasal Wash Influenza Types A,B Antigen - Final Negative for FLU A and B antigen Infection due to influenza A or B cannot be ruled out since the antigen present in the sample may be below the detection limit of the test. - Imaging Impressions Chest CTA 01/05/18 00:00 CONCLUSION: 1. No pulmonary embolus. 2. Small bilateral pleural effusions. Dependent/compressive appearing atelectasis of both lower lobes. 3. Patchy nonspecific parenchymal opacities of both lungs. There is a 3.1 cm nodular area of the right lower lobe, nonspecific but most likely infectious or inflammatory, possibly a vascular malformation. Comparison to any previous outside facility chest CTs would be helpful. Three-month follow-up noncontrast chest CT is recommended if there are no priors. 4. Coronary artery calcification. Head MRI 01/05/18 00:00 CONCLUSION: 1. Negative MR Brain non contrast. 2. No evidence of acute infarct, hemorrhage, mass or edema. Assessment and Plan - Plan New onset seizures Etiology is unclear, he 72 years old and this is his first occurrence with seizures Consider sleep deprivation, neighbors noted light has been on all night Consider black mold and [place] droppings in home Consider possibility of pesticides from eating 20 tomatoes week purchased at a [employer] market Consider history of gastric bypass surgery in 2010, B12, vitamin D, vitamin C are pending Vitamin B12, vitamin D are at acceptable levels, magnesium was within normal limits, TSH was normal RPR is still pending Patient is still confused and high maintenance from staff, keep in ICU until he is more alert and oriented Appreciate neurology consult Fever Lactic acid within normal limits Covered empirically with Vancomycin, Zosyn, Diflucan It is medically necessary to obtain a lumbar puncture today in order to identify possible source of infection He has been on no blood thinners and is ready for the LP, INR is pending as documentation. Appreciate Infectious Disease consult Respiratory distress Nurse reports some respiratory distress overnight, IV fluids discontinued Metabolic encephalopathy MRI of brain still pending to rule out small stroke Patient was unable to tolerate MRI, will try again today with Haldol Continue with supportive care Consider Ativan and postictal state DVT prophylaxis SCDs, chemoprophylaxis held due to active seizures Disposition Patient has no family, no offspring, no POA. Dr. Lucero and myself both agree that infection seems most likely source of his fever/seizure/delirium. We are recommending lumbar puncture as a medical necessity and will be glad to sign any consents on behalf of the patient in order to obtain the much needed information about his CSF.
--- NOTE | 2018-01-06 11:51 | P.PNPAL ---
Palliative care consulted to assisting with identifying legal health care proxy and addressing goals of medical treatment upon once health care decision maker identified. In review of records patient's only contact is a friend, Torito Mohamud [phone]-- left message requesting call back to inquire about family/PCP. Case management notes indicate there are two friends/neighbors (Kristopher Nelson and Kari Nelson [phone]) willing to serve in this role as they have lived next to patient for 15+ years. [id number]-- received call back from Mr. Mohamud (emergency contact in patient's records ). States he last spoke with Mr. Clement on Saturday. He reports he plans to come to the hospital tomorrow (SaturdayJanuary 07, time TDB as he is traveling from [facility]). He did not feel comfortable providing Mr. Clement personal information over the phone. Palliative care to meet with him tomorrow upon his arrival. Notes indicate patient is not capacitated therefore in absence of written advance directives [place] Statues must be followed to identify health care proxy decision maker. Patient only has 1 prior record from 2013. No family information. No PCP noted. This admission, no PCP noted. Google and social media searches exhausted without further family information. [employer] has been requested on patient in attempts to locate relatives. Awaiting results. Palliative care will continue to follow throughout hospitalization. Goals of medical treatment to be addressed once legal health care proxy(s) established.
[2018-01-06 11:52] LABS: INR 1.2 Ratio; Prothrombin Time 12.6 sec (9.8-11.6)
[2018-01-06] MEDS ORDERED: Acyclovir Inj 1,050 MG in Sodium Chlor 0.9% Inj 150 ML IV.SIG ONE (13:00)
[2018-01-06 14:33] LABS: Hepatitits B Surface Antigen Nonreactive (Nonreactive)
[2018-01-06 15:01] LABS: Hepatitis A IgM Antibody Nonreactive (Nonreactive)
--- NOTE | 2018-01-06 15:18 | P.RAD ---
Post Procedure Progress Note - Procedure Information Procedure Date: 01/06/18 Supervising Radiologist: Chidi Bach MD Estimated blood loss (mL): 0 Anesthesia: Local - Plan of Activity Patient to Unit: [facility] Patient Condition: Good See PACS Report for procedural detail/treatment.
--- NOTE | 2018-01-06 15:59 | IR ---
EXAM DATE: 01/06/2018 3:33 PM EST AGE/SEX: 72 years / Male INDICATIONS: Patient presents with altered mental status and fever in need of lumbar puncture. CLINICAL DATA: This is the patient's initial encounter. Patient reports that signs and symptoms have been present for 3 days and indicates a pain score of Nonresponsive. MEDICAL/SURGICAL HISTORY: . Unobtainable due to mental staus . Gastric bypass 2010 COMPARISON: No prior exams available for comparison. FLUORO TIME (min): 0.3 IMAGE SERIES: 1 ACCESS SITE: L3-4 LUMBAR PUNCTURE TIME: 1510 hours OPENING PRESSURE: 20 cm of water CLOSING PRESSURE: not requested FLUID: Total volume of 20 cc of clear fluid was removed. Fluid was sent to lab for ordered studies. ; . . PROCEDURE: 1. Fluoroscopic guided lumbar puncture. The risks, benefits and alternatives to the procedure were explained and verbal and written consent w as obtained. The site was prepped in sterile fashion. Full sterile technique was used, including ca p, mask, sterile gloves and gown and a large sterile sheet. Hand hygiene and 2% chlorhexidine and/or betadine/alcohol prep was utilized per protocol for cutaneous antisepsis. The skin and subcutaneous tissues were infiltrated with local anesthetic solution. With fluoroscopic guidance the lumbar thecal sac was punctured at the level above. The fluid describ ed above was removed without difficulty. The patient tolerated the procedure well and there were no complications. CONCLUSION: 1. Uncomplicated fluoroscopically guided lumbar puncture. Electronically signed by: Chidi Bach MD 01/06/2018 3:58 PM EST
[2018-01-06 16:28] LABS: Lymphocytes, CSF 68 %; Monocytes,CSF 32 %; Neutrophils,CSF 0 %; RBC on Tube 4 2 /mm3
[2018-01-06 16:33] LABS: RBC on Tube 1 7 /mm3
--- NOTE | 2018-01-06 17:03 | P.DIET ---
Nutritional Evaluation Type of nutrition evaluation: initial Nutrition consult regarding: Diet Evaluation Screening comments: 01/06 NPO x3 days Objective - Diagnosis seizure, new onset, intractable - Objective Body Mass Index: 38.9 % IBW: 166 (IBW = 154lb) Body Weight Used for Calculations: IBW Energy Needs - Lower Range (kCal/kg): 25 Energy Needs - Upper Range (kCal/kg): 30 Lower Limit kCal/kg (kCals): 1,750 Upper Limit kCal/kg (kCals): 2,100 Lower Limit Protein Factor (Grams per Kg): 1.1 Upper Limit Protein Factor (Grams per Kg): 1.3 Lower Protein Needs (Protein): 77 Upper Protein Needs (Protein): 91 Fluid Factor (ml/kg): 25 Estimated Fluid Needs (ml): 1,750 Dietitian Reviewed in Medical Record: Current diet, Curent medications, Intake & Output, Labs, Medical history Diet Order: NPO Speech Therapy Recommendations: No Objective Comments: PMH: gastric bypass Labs: K+ 2.8, BUN 21, GFR 77, Ca+ 8.0 Assessment Assessment: Pt currently at nutritional risk r/t NPO x3 days. RD to recommend nutritional support if pt continues to remain NPO. Will continue to monitor NPO status. Labs reviewed, dietitian following. Recommendations: 1. RD to recommend nutritional support if pt continues to remain NPO 2. Will continue to monitor NPO status 3. Dietitian following Dietitian to Monitor: Lab values, Intake & Output, Weight change, Diet advancement, Medical course
--- NOTE | 2018-01-06 17:17 | P.CONPAL ---
Consult Service: Palliative Care Requesting Physician: Darlene Lucero Reason for Consult: a. To assist with evaluation and management of symptoms including: Shortness of breath. b. To assist medical decision maker(s) with: better understanding of current medical conditions; weighing benefits/burdens of medical treatment options; making medical treatment decisions. Primary Care Provider: UNKNOWN History of Present Illness History of Present Illness: Mr. Clement is a 72-year-old male with a medical history significant for obesity status post gastric bypass and cataracts to ED via EMS after having a witnessed seizure during a police stop. As per medical records, he was stopped due to erratic driving when he was found confused prompting EMS call. ER workup to include head CT which was negative for acute process. EEG revealing first-degree AV block. Laboratory workup revealing sodium 146, potassium of 3.2 , toxicology screen negative for opiates, cannabinoids or cocaine. This was positive for benzodiazepine as he was reportedly given 6 mg in total. Patient experiencing a second seizure following CT scan. EEG abnormal secondary to encephalopathic process. No seizure activity noted. Abdominal x-ray negative for acute process. Patient was admitted for further management. Neurology, Dr. Guillen consulted on 01/04. Chest CTA negative for PE. However, showed small bilateral pulmonary effusions with a 3.1 cm nodule area of the right lower lobe most likely infectious or inflammatory. Head MRA negative for acute process. Infectious disease Dr. Brian Lucero consulted for evaluation and management of recurrent fevers and altered mental status. As per ID notes, patient's neighbors reporting that patient's living conditions are questionable as patient appears to be a hoarder, black mold and rat droppings noted at home by neighbors. Blood urine and nasal wash cultures negative thus far. Lumbar puncture performed today by IR. Palliative care has been consulted to assist with goals of care, find family/healthcare proxy to assist in medical decision making. Listed contact center analyst is Torito Mohamud. Palliative care psychosocial rehabilitation counselor Mirta Lew spoke with Mr. Mohamud today, he is expected to visit patient tomorrow (see note). Patient seen in medical ICU s/p lumbar puncture. Patient alert and oriented x self, place and situation. He was able to tell me why he was brought to the hospital, however, not very clear on clinical course. Obtained patient's past medical history and psychosocial history. Patient confirmed he is not , no children, no siblings, both parents are . He reports that friend Torito Mohamud is a former coworker who has known for over 30 years. Reviewed clinical course and current medical management. Patient forgetful but able to communicate needs. Patient denies pain, shortness of breath, nausea/vomiting or abdominal discomfort. Receptive to palliative care follow-ups when friend Torito Mohamud is present. Case reviewed with bedside RN. Function/Cognitive Trajectory: Patient denies cognitive or physical limitations. Reports good state of health prior to this hospitalization. Residing independently, fully independent with all ADLs. Driving, cooking and grocery shopping. Ambulating without assistive device. Review of Systems Constitutional: Reports fever(s), Denies body ache(s), Denies fatigue, Denies headache(s), Denies malaise Eyes: Denies loss of vision Ears, Nose, Mouth, and Throat: Reports dry mouth, Denies ear pain, Denies headache(s), Denies nasal congestion, Denies nasal discharge, Denies sore throat , Denies throat swelling Cardiovascular: Denies chest pain, Denies shortness of breath Respiratory: Denies chest congestion, Denies cough Gastrointestinal: Denies abdominal pain, Denies nausea, Denies vomiting Genitourinary: Denies blood in urine Musculoskeletal: Denies back pain, Denies body aches Skin/Breast: Denies skin ulcer, Denies sores Neurologic: Reports confusion, Denies abnormal hearing, Denies headache(s) Psychiatric: Denies anxiety, Denies behavioral changes Endocrine: Denies rapid, pounding, or irregular heartbeat Hematologic/Lymphatic: Denies easy bleeding Allergic/Immunologic: Denies GI upset with certain foods PMFSH - History History Provided By: Patient, Promotions Assistant Sales Marketing / EMT - Medical / Surgical Hx Neg / Unobtainable Medical Problems Denied: Yes - Medical History Medical History: Medical History (Last Updated 01/06/18 @ 16:52 by Yary Foster APRN) Cataract - Surgical History Surgical History: Surgical History (Last Updated 01/03/18 @ 12:57 by Austen Coles MD) H/O gastric bypass - Family History Family History: Family History (Last Updated 01/06/18 @ 16:54 by Yary Foster APRN) Father Prostate cancer Mother [place] (myocardial infarction) Other Hypertension - Social History I have reviewed the patient's Social History: Yes - Tobacco History Tobacco Use In Past 30 Days: No Smoking Status: Unknown if ever smoked - Alcohol History How Often Do You Have a Drink Containing Alcohol: Monthly or less - Substance Use History Substance History: Unable to Obtain - Travel History History of Recent Travel: No Recent Travel in the [place] Within the Last 8 Weeks: No Recent Travel Out of the Country Within the Last 8 Weeks: No - Immunization History Tetanus Immunization: Unable to Assess Medications and Allergies Active Medications: Active Medications Acetaminophen (Tylenol) 650 mg PO Q6H PRN PRN Reason: PAIN 1-10 AND/OR FEVER >101F Albuterol (Duoneb Neb (Prn)) 1 ampul NEB Q2HR NEB PRN PRN Reason: SHORTNESS OF BREATH/WHEEZING Famotidine (Pepcid Pf Inj) 20 mg IV.PUSH Q12HR [facility] Last Admin: 01/06/18 08:19 Dose: 20 mg Famotidine (Pepcid) 20 mg PO BID [facility] Last Admin: 01/06/18 08:19 Dose: Not Given Vancomycin HCl 1,000 mg/ (Sodium Chloride) 250 mls @ 250 mls/hr IV.SIG Q24H [facility] Last Admin: 01/06/18 11:10 Dose: 250 mls/hr Fluconazole (Diflucan 200 Mg Premix Bag) 100 mls @ 100 mls/hr IV.SIG Q24H [facility] Last Admin: 01/05/18 20:48 Dose: 100 mls/hr Ceftriaxone Sodium 2,000 mg/ (Sodium Chloride) 100 mls @ 200 mls/hr IV.SIG Q12H [facility] Last Admin: 01/06/18 12:51 Dose: 200 mls/hr Lorazepam (Ativan Inj) 2 mg IV.PUSH Q4H PRN PRN Reason: Agitation/sedation Last Admin: 01/05/18 13:00 Dose: 2 mg Lorazepam (Ativan Inj) 2 mg IV.PUSH ONCE PRN PRN Reason: SEIZURES Ondansetron HCl (Zofran Inj) 4 mg IV.PUSH Q6H PRN PRN Reason: NAUSEA OR VOMITING Sennosides (Senokot) 17.2 mg PO Q12H PRN PRN Reason: Moderate Constipation Sodium Chloride (Ns Flush) 2 ml IV.FLUSH BID [facility] Last Admin: 01/06/18 08:18 Dose: 2 ml Sodium Chloride (Ns Flush) 2 ml IV.FLUSH UNSCH PRN PRN Reason: FLUSH AFTER USING IV ACCESS Allergies Allergy/AdvReac Type Severity Reaction Status Date / Time No Known Allergies Allergy Verified 01/03/18 10:11 Home Medications Medication Instructions Recorded Confirmed Type Unable to Obtain Home Meds 01/03/18 01/03/18 History Advance Directives Living Will: No Healthcare Surrogate: No Power of Election Clerk: No Physical Exam Vital Signs: Vital Signs - 24 hr 01/05/18 17:00 01/05/18 18:00 01/05/18 18:14 Temperature 98.9 F Pulse Rate 85 92 H 90 Respiratory Rate 22 29 H 21 Blood Pressure 121/56 L 115/57 L Pulse Oximetry 96 91 L 97 01/05/18 19:00 01/05/18 19:02 01/05/18 19:07 Temperature Pulse Rate 141 H 137 H 128 H Respiratory Rate 23 20 19 Blood Pressure 88/51 L 117/62 Pulse Oximetry 97 97 95 01/05/18 19:10 01/05/18 19:13 01/05/18 19:14 Temperature Pulse Rate 134 H 133 H Respiratory Rate 20 22 Blood Pressure 113/56 L 112/62 Pulse Oximetry 97 97 97 01/05/18 19:15 01/05/18 19:20 01/05/18 19:25 Temperature Pulse Rate 108 H 112 H 108 H Respiratory Rate 19 27 H 23 Blood Pressure 118/56 L 128/61 134/59 L Pulse Oximetry 97 97 97 01/05/18 19:30 01/05/18 20:00 01/05/18 20:31 Temperature 102.1 F H Pulse Rate 113 H 125 H 138 H Respiratory Rate 22 36 H Blood Pressure 123/56 L 120/83 Pulse Oximetry 97 96 98 01/05/18 20:35 01/05/18 20:40 01/05/18 20:45 Temperature Pulse Rate 101 H 98 H 97 H Respiratory Rate 29 H 27 H 26 H Blood Pressure 123/70 114/61 114/60 Pulse Oximetry 94 L 96 97 01/05/18 20:50 01/05/18 20:55 01/05/18 21:00 Temperature Pulse Rate 97 H 98 H 105 H Respiratory Rate 28 H 27 H 35 H Blood Pressure 121/58 L 124/60 131/66 Pulse Oximetry 97 97 97 01/05/18 21:05 01/05/18 21:10 01/05/18 21:15 Temperature Pulse Rate 98 H 97 H 99 H Respiratory Rate 28 H 26 H 28 H Blood Pressure 118/64 111/59 L 114/67 Pulse Oximetry 98 98 98 01/05/18 21:20 01/05/18 21:25 01/05/18 21:30 Temperature Pulse Rate 98 H 97 H 97 H Respiratory Rate 26 H 25 H 26 H Blood Pressure 108/61 111/57 L 117/61 Pulse Oximetry 98 98 99 01/05/18 21:35 01/05/18 21:40 01/05/18 21:45 Temperature Pulse Rate 92 H 94 H 103 H Respiratory Rate 26 H 26 H 26 H Blood Pressure 132/59 L 126/58 L 133/62 Pulse Oximetry 98 98 97 01/05/18 21:50 01/05/18 21:55 01/05/18 22:00 Temperature Pulse Rate 95 H 93 H 100 H Respiratory Rate 28 H 26 H 31 H Blood Pressure 122/66 122/59 L 115/67 Pulse Oximetry 98 98 97 01/05/18 22:05 01/05/18 22:10 01/05/18 22:31 Temperature Pulse Rate 102 H 93 H 101 H Respiratory Rate 28 H 25 H 26 H Blood Pressure 120/56 L 122/57 L 136/61 Pulse Oximetry 93 L 96 98 01/05/18 23:00 01/05/18 23:30 01/06/18 00:00 Temperature Pulse Rate 94 H 91 H 89 Respiratory Rate 21 24 23 Blood Pressure 128/63 129/68 136/63 Pulse Oximetry 97 98 94 L 01/06/18 00:30 01/06/18 01:00 01/06/18 01:30 Temperature Pulse Rate 86 84 80 Respiratory Rate 22 19 25 H Blood Pressure 120/62 125/66 123/66 Pulse Oximetry 94 L 94 L 88 L 01/06/18 02:00 01/06/18 02:30 01/06/18 03:00 Temperature Pulse Rate 78 81 78 Respiratory Rate 19 18 15 Blood Pressure 139/61 126/70 117/73 Pulse Oximetry 92 L 94 L 97 01/06/18 03:30 01/06/18 04:00 01/06/18 04:30 Temperature 98.3 F Pulse Rate 78 76 77 Respiratory Rate 17 18 21 Blood Pressure 122/71 133/61 126/77 Pulse Oximetry 97 90 L 86 L 01/06/18 05:00 01/06/18 05:30 01/06/18 06:00 Temperature Pulse Rate 75 107 H 110 H Respiratory Rate 17 18 19 Blood Pressure 133/64 142/66 H Pulse Oximetry 96 94 L 93 L 01/06/18 06:01 01/06/18 06:30 01/06/18 07:00 Temperature Pulse Rate 114 H 110 H 106 H Respiratory Rate 21 17 20 Blood Pressure 131/60 124/60 123/66 Pulse Oximetry 94 L 97 98 01/06/18 07:30 01/06/18 08:00 01/06/18 08:30 Temperature 97.7 F Pulse Rate 82 82 75 Respiratory Rate 19 23 19 Blood Pressure 109/69 113/66 114/61 Pulse Oximetry 97 98 97 01/06/18 09:00 01/06/18 09:30 01/06/18 10:00 Temperature Pulse Rate 76 76 81 Respiratory Rate 22 21 21 Blood Pressure 122/77 124/60 131/61 Pulse Oximetry 97 97 96 01/06/18 11:00 01/06/18 11:30 01/06/18 12:00 Temperature 98 F Pulse Rate 81 80 80 Respiratory Rate 20 20 18 Blood Pressure 119/58 L 127/64 124/62 Pulse Oximetry 97 97 96 01/06/18 12:30 01/06/18 13:00 01/06/18 13:30 Temperature Pulse Rate 79 77 78 Respiratory Rate 18 17 18 Blood Pressure 116/61 127/63 119/68 Pulse Oximetry 95 95 01/06/18 14:00 01/06/18 15:00 01/06/18 15:32 Temperature 98 F Pulse Rate 79 88 85 Respiratory Rate 18 18 21 Blood Pressure 121/66 120/61 120/61 Pulse Oximetry 95 93 L 94 L 01/06/18 16:00 Temperature Pulse Rate 84 Respiratory Rate 22 Blood Pressure 122/70 Pulse Oximetry 89 L I&O: Intake & Output 01/04/18 01/05/18 01/06/18 01/07/18 07:59 06:59 06:59 06:59 Intake Total 1000 / 1000 300 / 300 Output Total 2455 / 2455 Balance -1455 / -1455 300 / 300 Weight 116.1 kg Physical Exam: CONSTITUTIONAL/GENERAL: This is an adequately nourished male patient resting in bed in no acute distress. TUBES/LINES/DRAINS: O2 mask, Manzanares catheter, PIV's, bilateral soft wrist restraints. SKIN: No jaundice, rashes, or lesions. No wounds seen anteriorly. Skin temperature appropriate. Not diaphoretic. HEAD: Atraumatic. Normocephalic. EYES: Pupils equal and round and reactive. Extraocular motions intact. No scleral icterus. No injection or drainage. Fundi not examined. ENT: Hearing grossly normal. Nose without bleeding or purulent drainage. Moist oral mucosa. NECK: Trachea midline. Supple, nontender. CARDIOVASCULAR: Regular rate and rhythm without murmurs, gallops, or rubs. No JVD. Peripheral pulses symmetric. RESPIRATORY/CHEST: Symmetric, unlabored respirations. Clear to auscultation. Breath sounds equal bilaterally. No wheezes, rales, or rhonchi. GASTROINTESTINAL: Abdomen obese, soft, non-tender, nondistended. No guarding. Bowel sounds present. GENITOURINARY: Without palpable bladder distension. Manzanares catheter in place. MUSCULOSKELETAL: Extremities without clubbing, cyanosis, or edema. No mottling or clubbing. LYMPHATICS: No palpable cervical adenopathy. NEUROLOGICAL: Awake and alert to self, place and situation. Forgetful at times. Motor and sensory grossly within normal limits. Follows commands. Moves all extremities. PSYCHIATRIC: No obvious anxiety/depression. no apparent hallucinations or other psychotic thought process. Pleasant and cooperative. Diagnostic Tests Laboratory: Laboratory Results - last 72 hr 01/03/18 01/03/18 01/03/18 16:55 21:04 21:04 WBC RBC Hgb Hct MCV MCH MCHC RDW Plt Count MPV Neut % (Auto) Lymph % (Auto) Brown % (Auto) Eos % (Auto) Baso % (Auto) Neut # (Auto) Lymph # (Auto) Brown # (Auto) Eos # (Auto) Baso # (Auto) WBC Differential Differential Comment PT INR D-Dimer Quant (PE/DVT) Puncture Site Patient Temperature O2 Saturation ABG pH ABG pCO2 ABG pO2 ABG HCO3 ABG O2 Content ABG Base Excess ABG Methemoglobin Mahin Test Hemoglobin Carboxyhemoglobin O2 Delivery Device Liter Flow Critical Value Sodium Potassium Chloride Carbon Dioxide Anion Gap BUN Creatinine Estimated GFR Random Glucose Lactic Acid Calcium Magnesium Total Bilirubin AST ALT Alkaline Phosphatase Troponin I Total Protein Albumin Vitamin B12 499 Vitamin D 25-Hydroxy 23.7 L TSH 0.380 Urine Color Urine Clarity Urine pH Ur Specific [place] Urine Protein Urine Glucose (UA) Urine Ketones Urine Occult Blood Urine Nitrate Urine Bilirubin Urine Urobilinogen Ur Leukocyte Esterase Urine RBC Urine WBC Ur Squamous Epith Cells Urine Bacteria Hyaline Casts Urine Mucus Micro UA Comment Ur Microscopic Review Urine Culture Comments CSF Glucose CSF LDH CSF Lactic Acid CSF Total Protein Nasal Screen MRSA (PCR) Not detected RPR Nonreactive Hepatitis A IgM Ab Hep Bs Antigen Hep B Core IgM Ab Hep C IgG Ab HIV 1&2 Ab/P24 Ag 4thGn 01/04/18 01/04/18 01/04/18 04:54 05:48 05:48 WBC 8.6 D RBC 4.03 L Hgb 12.2 L Hct 36.2 L MCV 89.7 D MCH 30.2 MCHC 33.7 RDW 14.4 Plt Count 191 MPV 7.4 Neut % (Auto) Lymph % (Auto) Brown % (Auto) Eos % (Auto) Baso % (Auto) Neut # (Auto) Lymph # (Auto) Brown # (Auto) Eos # (Auto) Baso # (Auto) WBC Differential Differential Comment PT INR D-Dimer Quant (PE/DVT) Puncture Site Patient Temperature O2 Saturation ABG pH ABG pCO2 ABG pO2 ABG HCO3 ABG O2 Content ABG Base Excess ABG Methemoglobin Mahin Test Hemoglobin Carboxyhemoglobin O2 Delivery Device Liter Flow Critical Value Sodium 146 H Potassium 3.2 L D Chloride 111 H Carbon Dioxide 28.1 Anion Gap 7 BUN 12 Creatinine 0.67 Estimated GFR Greater than 89 Random Glucose 105 Lactic Acid 1.0 Calcium 8.1 L D Magnesium Total Bilirubin AST ALT Alkaline Phosphatase Troponin I Total Protein Albumin Vitamin B12 Vitamin D 25-Hydroxy TSH Urine Color Urine Clarity Urine pH Ur Specific [place] Urine Protein Urine Glucose (UA) Urine Ketones Urine Occult Blood Urine Nitrate Urine Bilirubin Urine Urobilinogen Ur Leukocyte Esterase Urine RBC Urine WBC Ur Squamous Epith Cells Urine Bacteria Hyaline Casts Urine Mucus Micro UA Comment Ur Microscopic Review Urine Culture Comments CSF Glucose CSF LDH CSF Lactic Acid CSF Total Protein Nasal Screen MRSA (PCR) RPR Hepatitis A IgM Ab Hep Bs Antigen Hep B Core IgM Ab Hep C IgG Ab HIV 1&2 Ab/P24 Ag 4thGn 01/04/18 01/05/18 01/05/18 22:43 00:45 03:21 WBC 9.6 RBC 5.01 Hgb 15.2 D Hct 45.2 MCV 90.3 MCH 30.3 MCHC 33.6 RDW 14.9 Plt Count 190 MPV 7.7 Neut % (Auto) 92.5 H Lymph % (Auto) 2.2 L Brown % (Auto) 4.8 Eos % (Auto) 0.3 Baso % (Auto) 0.2 Neut # (Auto) 8.9 H Lymph # (Auto) 0.2 L Brown # (Auto) 0.5 Eos # (Auto) 0.0 Baso # (Auto) 0.0 WBC Differential . Differential Comment Auto diff final PT INR D-Dimer Quant (PE/DVT) Puncture Site Left radial Patient Temperature 98.6 O2 Saturation 92 ABG pH 7.41 ABG pCO2 44 H ABG pO2 85 ABG HCO3 27 H ABG O2 Content 17.3 ABG Base Excess 2.7 H ABG Methemoglobin 2.8 H Mahin Test Present Hemoglobin 13.4 Carboxyhemoglobin 0.6 O2 Delivery Device Nasal cannula Liter Flow 3.00 Critical Value No Sodium Potassium Chloride Carbon Dioxide Anion Gap BUN Creatinine Estimated GFR Random Glucose Lactic Acid Calcium Magnesium Total Bilirubin AST ALT Alkaline Phosphatase Troponin I Total Protein Albumin Vitamin B12 Vitamin D 25-Hydroxy TSH Urine Color Colorless Urine Clarity Clear Urine pH 5.0 Ur Specific [place] 1.005 Urine Protein Negative Urine Glucose (UA) Negative Urine Ketones Negative Urine Occult Blood Small H Urine Nitrate Negative Urine Bilirubin Negative Urine Urobilinogen Less than 2 Ur Leukocyte Esterase Negative Urine RBC 1 Urine WBC 1 Ur Squamous Epith Cells <1 Urine Bacteria Rare H Hyaline Casts 4 Urine Mucus Few H Micro UA Comment Cath-culture ind Ur Microscopic Review Not Reportable Urine Culture Comments Cath-cult indicated CSF Glucose CSF LDH CSF Lactic Acid CSF Total Protein Nasal Screen MRSA (PCR) RPR Hepatitis A IgM Ab Hep Bs Antigen Hep B Core IgM Ab Hep C IgG Ab HIV 1&2 Ab/P24 Ag 4thGn 01/05/18 01/05/18 01/05/18 03:21 03:21 14:32 WBC RBC Hgb Hct MCV MCH MCHC RDW Plt Count MPV Neut % (Auto) Lymph % (Auto) Brown % (Auto) Eos % (Auto) Baso % (Auto) Neut # (Auto) Lymph # (Auto) Brown # (Auto) Eos # (Auto) Baso # (Auto) WBC Differential Differential Comment PT INR D-Dimer Quant (PE/DVT) 3.83 H Puncture Site Patient Temperature O2 Saturation ABG pH ABG pCO2 ABG pO2 ABG HCO3 ABG O2 Content ABG Base Excess ABG Methemoglobin Mahin Test Hemoglobin Carboxyhemoglobin O2 Delivery Device Liter Flow Critical Value Sodium 144 Potassium 3.6 Chloride 104 Carbon Dioxide 35.0 H Anion Gap 5 BUN 12 Creatinine 1.31 H Estimated GFR 54 L Random Glucose 122 H Lactic Acid 1.4 Calcium 8.5 Magnesium 1.9 Total Bilirubin 1.7 H AST 36 ALT 32 Alkaline Phosphatase 83 Troponin I Total Protein 8.5 H Albumin 3.4 Vitamin B12 Vitamin D 25-Hydroxy TSH Urine Color Urine Clarity Urine pH Ur Specific [place] Urine Protein Urine Glucose (UA) Urine Ketones Urine Occult Blood Urine Nitrate Urine Bilirubin Urine Urobilinogen Ur Leukocyte Esterase Urine RBC Urine WBC Ur Squamous Epith Cells Urine Bacteria Hyaline Casts Urine Mucus Micro UA Comment Ur Microscopic Review Urine Culture Comments CSF Glucose CSF LDH CSF Lactic Acid CSF Total Protein Nasal Screen MRSA (PCR) RPR Hepatitis A IgM Ab Hep Bs Antigen Hep B Core IgM Ab Hep C IgG Ab HIV 1&2 Ab/P24 Ag 4thGn 01/05/18 01/06/18 01/06/18 20:23 04:00 04:00 WBC 6.6 RBC 4.84 Hgb 14.6 Hct 43.8 MCV 90.4 MCH 30.2 MCHC 33.4 RDW 14.8 Plt Count 168 MPV 8.2 Neut % (Auto) Lymph % (Auto) Brown % (Auto) Eos % (Auto) Baso % (Auto) Neut # (Auto) Lymph # (Auto) Brown # (Auto) Eos # (Auto) Baso # (Auto) WBC Differential Differential Comment PT INR D-Dimer Quant (PE/DVT) Puncture Site Patient Temperature O2 Saturation ABG pH ABG pCO2 ABG pO2 ABG HCO3 ABG O2 Content ABG Base Excess ABG Methemoglobin Mahin Test Hemoglobin Carboxyhemoglobin O2 Delivery Device Liter Flow Critical Value Sodium 149 H Potassium 2.8 L* D Chloride 105 Carbon Dioxide 35.4 H Anion Gap 9 BUN 21 H Creatinine 0.96 Estimated GFR 77 L Random Glucose 106 Lactic Acid Calcium 8.0 L Magnesium Total Bilirubin AST ALT Alkaline Phosphatase Troponin I Less than 0.02 L Total Protein Albumin Vitamin B12 Vitamin D 25-Hydroxy TSH Urine Color Urine Clarity Urine pH Ur Specific [place] Urine Protein Urine Glucose (UA) Urine Ketones Urine Occult Blood Urine Nitrate Urine Bilirubin Urine Urobilinogen Ur Leukocyte Esterase Urine RBC Urine WBC Ur Squamous Epith Cells Urine Bacteria Hyaline Casts Urine Mucus Micro UA Comment Ur Microscopic Review Urine Culture Comments CSF Glucose CSF LDH CSF Lactic Acid CSF Total Protein Nasal Screen MRSA (PCR) RPR Hepatitis A IgM Ab Hep Bs Antigen Hep B Core IgM Ab Hep C IgG Ab HIV 1&2 Ab/P24 Ag 4thGn 01/06/18 01/06/18 01/06/18 10:50 13:20 13:20 WBC RBC Hgb Hct MCV MCH MCHC RDW Plt Count MPV Neut % (Auto) Lymph % (Auto) Brown % (Auto) Eos % (Auto) Baso % (Auto) Neut # (Auto) Lymph # (Auto) Brown # (Auto) Eos # (Auto) Baso # (Auto) WBC Differential Differential Comment PT 12.6 H INR 1.2 D-Dimer Quant (PE/DVT) Puncture Site Patient Temperature O2 Saturation ABG pH ABG pCO2 ABG pO2 ABG HCO3 ABG O2 Content ABG Base Excess ABG Methemoglobin Mahin Test Hemoglobin Carboxyhemoglobin O2 Delivery Device Liter Flow Critical Value Sodium Potassium Chloride Carbon Dioxide Anion Gap BUN Creatinine Estimated GFR Random Glucose Lactic Acid Calcium Magnesium Total Bilirubin AST ALT Alkaline Phosphatase Troponin I Total Protein Albumin Vitamin B12 Vitamin D 25-Hydroxy TSH Urine Color Urine Clarity Urine pH Ur Specific [place] Urine Protein Urine Glucose (UA) Urine Ketones Urine Occult Blood Urine Nitrate Urine Bilirubin Urine Urobilinogen Ur Leukocyte Esterase Urine RBC Urine WBC Ur Squamous Epith Cells Urine Bacteria Hyaline Casts Urine Mucus Micro UA Comment Ur Microscopic Review Urine Culture Comments CSF Glucose CSF LDH CSF Lactic Acid CSF Total Protein Nasal Screen MRSA (PCR) RPR Hepatitis A IgM Ab Nonreactive Hep Bs Antigen Nonreactive Hep B Core IgM Ab Nonreactive Hep C IgG Ab Nonreactive HIV 1&2 Ab/P24 Ag 4thGn Nonreactive 01/06/18 01/06/18 01/06/18 15:10 15:10 15:10 WBC RBC Hgb Hct MCV MCH MCHC RDW Plt Count MPV Neut % (Auto) Lymph % (Auto) Brown % (Auto) Eos % (Auto) Baso % (Auto) Neut # (Auto) Lymph # (Auto) Brown # (Auto) Eos # (Auto) Baso # (Auto) WBC Differential Differential Comment PT INR D-Dimer Quant (PE/DVT) Puncture Site Patient Temperature O2 Saturation ABG pH ABG pCO2 ABG pO2 ABG HCO3 ABG O2 Content ABG Base Excess ABG Methemoglobin Mahin Test Hemoglobin Carboxyhemoglobin O2 Delivery Device Liter Flow Critical Value Sodium Potassium Chloride Carbon Dioxide Anion Gap BUN Creatinine Estimated GFR Random Glucose Lactic Acid Calcium Magnesium Total Bilirubin AST ALT Alkaline Phosphatase Troponin I Total Protein Albumin Vitamin B12 Vitamin D 25-Hydroxy TSH Urine Color Urine Clarity Urine pH Ur Specific [place] Urine Protein Urine Glucose (UA) Urine Ketones Urine Occult Blood Urine Nitrate Urine Bilirubin Urine Urobilinogen Ur Leukocyte Esterase Urine RBC Urine WBC Ur Squamous Epith Cells Urine Bacteria Hyaline Casts Urine Mucus Micro UA Comment Ur Microscopic Review Urine Culture Comments CSF Glucose 68 CSF LDH Cancelled CSF Lactic Acid Cancelled CSF Total Protein 103.0 H Nasal Screen MRSA (PCR) RPR Hepatitis A IgM Ab Hep Bs Antigen Hep B Core IgM Ab Hep C IgG Ab HIV 1&2 Ab/P24 Ag 4thGn 01/06/18 15:10 WBC RBC Hgb Hct MCV MCH MCHC RDW Plt Count MPV Neut % (Auto) Lymph % (Auto) Brown % (Auto) Eos % (Auto) Baso % (Auto) Neut # (Auto) Lymph # (Auto) Brown # (Auto) Eos # (Auto) Baso # (Auto) WBC Differential Differential Comment PT INR D-Dimer Quant (PE/DVT) Puncture Site Patient Temperature O2 Saturation ABG pH ABG pCO2 ABG pO2 ABG HCO3 ABG O2 Content ABG Base Excess ABG Methemoglobin Mahin Test Hemoglobin Carboxyhemoglobin O2 Delivery Device Liter Flow Critical Value Sodium Potassium Chloride Carbon Dioxide Anion Gap BUN Creatinine Estimated GFR Random Glucose Lactic Acid Calcium Magnesium Total Bilirubin AST ALT Alkaline Phosphatase Troponin I Total Protein Albumin Vitamin B12 Vitamin D 25-Hydroxy TSH Urine Color Urine Clarity Urine pH Ur Specific [place] Urine Protein Urine Glucose (UA) Urine Ketones Urine Occult Blood Urine Nitrate Urine Bilirubin Urine Urobilinogen Ur Leukocyte Esterase Urine RBC Urine WBC Ur Squamous Epith Cells Urine Bacteria Hyaline Casts Urine Mucus Micro UA Comment Ur Microscopic Review Urine Culture Comments CSF Glucose CSF LDH CSF Lactic Acid CSF Total Protein Cancelled Nasal Screen MRSA (PCR) RPR Hepatitis A IgM Ab Hep Bs Antigen Hep B Core IgM Ab Hep C IgG Ab HIV 1&2 Ab/P24 Ag 4thGn Result Diagrams: 01/06/18 04:00 01/06/18 04:00 Microbiology: Microbiology 01/06/18 15:10 Gram Stain - Final Lumbar Puncture 01/05/18 00:45 Urine Culture - Preliminary Catheterized Urine No growth in 24 hours 01/04/18 23:53 Aerobic Blood Culture - Preliminary Blood - Peripheral No growth in 1 day Anaerobic Blood Culture - Preliminary No growth in 1 day 01/04/18 23:58 Aerobic Blood Culture - Preliminary Blood - Peripheral No growth in 1 day Anaerobic Blood Culture - Preliminary No growth in 1 day 01/05/18 23:00 Influenza Types A,B Antigen - Final Nasal Wash Negative for FLU A and B antigen Infection due to influenza A or B cannot be ruled out since the antigen present in the sample may be below the detection limit of the test. Procedures: 01/06/18: Lumbar puncture. Patient/Family Conference Present at Family Conference: Patient. Family Conference Location: Bedside Issues Discussed: * Palliative care role, purpose, approach * Additional medical, psychosocial, and spiritual history * Patients general health, functional status, and cognitive changes in the months leading up to the current hospitalization * Patient understanding of the current medical problems * Current medical treatment options and benefits/burdens of those options * Questions answered to the best of my ability * Palliative care contact information provided Assessment and Plan - Disease Oriented Problem List (1) New onset seizure (2) Respiratory distress (3) Recurrent fever (4) Metabolic encephalopathy - Symptom Scale (1) Shortness of breath 0-10 Scale: 0 Pertinent Non-Medical Issues: Psychosocial: Patient originally from [place]. Moved to [place] with his family when he was 4 years old. Both parents are . He is the only child, no siblings. Patient is single/never , no children. Denies having any family. He is a retired teacher. Spiritual: No amish affiliations. Legal: No advance directives reported as completed. Ethical issues impacting care: No ethical issues identified. Important Contacts: Friend Torito Mohamud (has known patient for over 30 years). Neighbors Kristopher and Kari Omar , (has known patient for 15 years). Prognosis: Mr. Clement is a 72-year-old male with a medical history significant for obesity status post gastric bypass and cataracts to ED via EMS after having a witnessed seizure during a police stop. As per medical records, he was stopped due to erratic driving when he was found confused prompting EMS call. ER workup to include head CT and MRI which was negative for acute process. Patient with no history of physical or cognitive decline, currently being worked up for meningitis. Code Status: Full Code Plan: * CODE STATUS: Full code by default. CODE STATUS not addressed given patient's intermittent confusion/forgetfulness. * HEALTHCARE DECISION-MAKING: Patient with limited participation and goals of care at this time given clinical condition with intermittent confusion/ forgetfulness. This appears to be improving, patient likely to regain medical decision making capacity within the incoming days. He reports that he is single /never , no children, no sibling, both parents are . Patient verbalized that he would like to designate his friend Torito Mohamud or neighbors Kristopher and Kari Nelson as healthcare surrogate decision-makers. Patient verbalized that he trust his friends to make decisions on his behalf and that he has "nobody else". * GOALS OF CARE: Goals for treatment aggressive by default. Goals of treatment not addressed during this first visit given patient's clinical condition with intermittent confusion/forgetfulness. Confusion appears to be improving, patient likely to participate in goals of care conversation within the incoming days. Palliative care will assist with completion of advance directives if indicated. * SYMPTOMS: = Shortness of breath: Multifactorial secondary to sepsis of unknown etiology. CTA negative for PE. Pending 2D echo. Patient currently tolerating O2 via facemask at 9L, denied shortness of breath or any discomfort at the time of my visit. = Confusion/forgetfulness: EEG 01/03 showing encephalopathy. Confusion appears to be resolving. Neurology following. * Palliative care to meet with patient's friend Torito Mohamud tomorrow 01/07. * Palliative care to assist with completion of advance directives if indicated. * Palliative care to continue to follow-up for further clarifications of goals of care as patient's clinical condition continues to evolve. Time Spent Total Floor Time (mins): 46 (Total time to include review and summarization of available medical records, physical exam, conversation with patient, case discussion with bedside RN.) >50% Time in Counseling or Coordination of Care: Yes (Total visit time = 46 minutes; > 50% spent counseling/coordinating care) Appreciation Thank you for the opportunity to participate in the care of Van Clement. Attestation Attestation: To help prompt me to consider important information that might be impacting today's encounter and assessment, information from prior notes written by myself or my colleagues may have been "brought forward" into today's note. My signature on this note, however, is an attestation that I personally performed the exam, history, and/or decision-making noted today, and, unless otherwise indicated, the interactions with patient, family, and staff as well as the review of records all occurred today. I also attest that the listed assessment and stated plan reflect my best clinical judgment today based on the combination of historical information, prior notes, and today's exam/ interactions. When time spent is documented, it refers only to time spent today by the signer, or if indicated, combined time spent today by collaborating physician/nurse practitioner.
--- NOTE | 2018-01-06 21:21 | ECG ---
Date Performed: 01/05/2018 Time Performed: 19:02:48 PTAGE: 72 years EKG: ATRIAL FIBRILLATION WITH RAPID VENTRICULAR RESPONSE NONSPECIFIC ST & T-WAVE ABNORMALITY ABN ORMAL RHYTHM ECG PREVIOUS TRACING : 01/03/2018 11.20 Compared to previous tracing, SR no longer present DOCTOR: Jovana Montero Interpretating Date/Time 01/06/2018 21:20:56
--- NOTE | 2018-01-07 01:07 | MB ---
cc: Dereck Graves DO DATE: 01/06/2018 REASON FOR CONSULTATION: Atrial fibrillation. HISTORY OF PRESENT ILLNESS: Van Clement is a 72-year-old male who presented to [facility] due to a police stop. He is unable to provide any history, so history is taken from the chart. Apparently, he was driving [id number] on the street and when police interviewed him, he was confused. He was brought by EMS and on arrival to the emergency room, a second seizure, which appeared to be tonic-clonic, happened. He was admitted for encephalopathy. During his time here, he has gone into atrial fibrillation with rapid ventricular response. As far as we know, there is no past medical history of this. I was asked to see him for his atrial fibrillation. He is currently hemodynamically stable with heart rates controlled. PAST MEDICAL HISTORY: Unknown. PAST SURGICAL HISTORY: Unknown. ALLERGIES: NO KNOWN DRUG ALLERGIES. MEDICATIONS: Unknown. FAMILY HISTORY: Unknown. SOCIAL HISTORY: Unknown. REVIEW OF SYSTEMS: Fourteen systems were reviewed including osteopathic. Pertinent positives and negatives above, otherwise negative. PHYSICAL EXAMINATION: VITAL SIGNS: Temperature 97.7, heart rate 81, blood pressure 119/58, respirations 20, pulse oximetry 97% on 8 liters. GENERAL: The patient appears somewhat disheveled, in no acute distress. He is alert and oriented x1. HEENT: Extraocular muscles intact. Mucous membranes are moist. NECK: Supple. No JVD at 45 degrees. No carotid bruits heard bilaterally. Carotid upstroke is brisk in nature. HEART: Regular rate and rhythm. Positive first and second heart sounds with no noted murmurs, gallops or rubs. LUNGS: Clear to auscultation bilaterally. No wheezes, rales or rhonchi. ABDOMEN: Soft, nontender, nondistended. No organomegaly noted. EXTREMITIES: Show no clubbing, cyanosis or edema. Femoral and distal pulses are intact bilaterally. NEUROLOGIC: The patient is alert and oriented x1. He appears to be able to move all extremities. SKIN: Warm, dry and intact. OSTEOPATHIC: No kyphoscoliosis, lordosis. LABORATORY DATA: Hemoglobin 14.6, hematocrit 43.8, platelets 168. Potassium 2.8, BUN 21, creatinine 0.96. Troponin less than 0.02. Electrocardiogram (01/05/2018 at 1902 hours): Atrial fibrillation with rapid ventricular response, nonspecific ST-T wave changes. ASSESSMENT AND PLAN: 1. New onset atrial fibrillation with rapid ventricular response. 2. Encephalopathy of unknown etiology. 3. New onset seizures. 4. Fever. RECOMMENDATIONS: 1. Mr. Clement presented with fevers and seizures and is being worked up from infectious disease for possible meningitis. 2. He is converted from atrial fibrillation to sinus rhythm. We will continue to follow him and may need to further increase medications to try to keep him out of atrial fibrillation. 3. He is not a candidate for anticoagulation at this time due to his overall illness, especially with seizures. 4. We will continue to follow him and help out as necessary from a cardiology standpoint. 5. We will check a 2-D echo to look at his overall left ventricular function, cardiac structure and possible valvulopathies. 6. Further recommendations will be made based on the hospital course. Thank you for allowing me to see Van Clement. If there are any questions, please do not hesitate to call. Dereck Graves DO VGP/sj , 11:40 PM , 11:50 PM
[2018-01-07] MEDS: Famotidine PF Inj 20 MG/2 ML Vial IV.PUSH SCH ×2 (08:47→20:09)
[2018-01-07] MEDS: Famotidine 20 MG Tablet PO SCH ×2 (08:47→20:10)
[2018-01-07] MEDS: Vancomycin Inj 1,000 MG in Sodium Chlor 0.9% Inj 250 ML IV.SIG SCH (12:48)
--- NOTE | 2018-01-07 14:53 | P.PNPAL ---
Palliative care received phone call from friend Mr. Mohamud of arrival to hospital. Met with Mr. Mohamud and palliative care RADIOLOGY TRANSPORTER Sha Foster in patient's room. RN in to provide assistance with repositioning. Mr. Clement is alert, somewhat confused but able to make his needs known. Throughout conversation he has moments where he answers questions appropriately and moments where he is off topic asking me "aren't you going to [place]?". RADIOLOGY TRANSPORTER and myself provided update to Mr. Mohamud and answered his questions and concerns. Mr. Clement again confirms he has never been , no children, parents , no siblings, and no other family living. When asked about written advance directives he states he has not done them for himself yet. Unable to provide direct answer to whom he would want to serve as health care proxy. He does confirm he has known Mr. Mohamud for 30+ years and is well supported by friends. At this time would recommend giving Mr. Clement time to see if his mentation improves to be able to participate more in goals of medical treatment conversations and identifying health care decision maker. Should his mentation not improve, Mr. Mohamud is willing to serve as health care proxy as he has known him for a long period of time and has been involved in other medical visits listed as emergency contact. At this time Mr. Clement remains a FULL CODE by default awaiting results of medical testing and mentation to improve. Palliative care will continue to follow along throughout hospitalization.
--- NOTE | 2018-01-07 16:24 | P.PN ---
Subjective Interval history: awake alert Physical Exam Vital signs: Vital Signs 01/06/18 16:30 01/06/18 17:00 01/06/18 17:30 Temperature 98 F Pulse Rate 79 79 122 H Respiratory Rate 18 20 20 Blood Pressure 113/60 124/66 136/75 Pulse Oximetry 89 L 98 99 01/06/18 18:00 01/06/18 18:30 01/06/18 19:00 Temperature Pulse Rate 126 H 125 H 117 H Respiratory Rate 19 15 20 Blood Pressure 126/93 H 126/84 125/67 Pulse Oximetry 97 70 L 97 01/06/18 19:30 01/06/18 20:00 01/06/18 20:30 Temperature 99.1 F 99.1 F Pulse Rate 86 85 84 Respiratory Rate 19 20 21 Blood Pressure 126/71 122/72 123/67 Pulse Oximetry 97 98 98 01/06/18 20:45 01/06/18 21:00 01/06/18 22:00 Temperature Pulse Rate 80 78 Respiratory Rate 17 17 Blood Pressure 119/70 120/61 Pulse Oximetry 97 99 97 01/06/18 22:30 01/06/18 23:00 01/06/18 23:30 Temperature Pulse Rate 86 81 75 Respiratory Rate 26 H 16 17 Blood Pressure 135/67 124/74 125/65 Pulse Oximetry 99 97 96 01/07/18 00:00 01/07/18 00:15 01/07/18 00:30 Temperature 99.2 F Pulse Rate 76 72 Respiratory Rate 15 16 Blood Pressure 122/66 122/66 Pulse Oximetry 95 96 96 01/07/18 01:00 01/07/18 01:30 01/07/18 02:00 Temperature Pulse Rate 101 H 102 H 101 H Respiratory Rate 15 17 16 Blood Pressure 144/76 H 133/69 140/72 Pulse Oximetry 95 95 96 01/07/18 02:30 01/07/18 03:00 01/07/18 03:30 Temperature Pulse Rate 117 H 85 84 Respiratory Rate 20 21 15 Blood Pressure 148/93 H 140/79 139/74 Pulse Oximetry 97 100 99 01/07/18 04:00 01/07/18 04:30 01/07/18 05:00 Temperature 99.0 F Pulse Rate 111 H 115 H 113 H Respiratory Rate 12 29 H 18 Blood Pressure 127/72 140/65 126/75 Pulse Oximetry 100 100 100 01/07/18 05:31 01/07/18 06:00 01/07/18 06:01 Temperature Pulse Rate 119 H 140 H 141 H Respiratory Rate 35 H Blood Pressure 117/90 162/79 H Pulse Oximetry 99 93 L 94 L 01/07/18 06:31 01/07/18 07:00 01/07/18 07:30 Temperature Pulse Rate 116 H 124 H 123 H Respiratory Rate 27 H 29 H 30 H Blood Pressure 153/75 H 150/97 H 142/81 H Pulse Oximetry 98 100 01/07/18 07:44 01/07/18 08:00 01/07/18 08:30 Temperature 99.1 F Pulse Rate 138 H 90 Respiratory Rate 37 H 0 L Blood Pressure 145/68 H 136/75 Pulse Oximetry 95 91 L 01/07/18 09:00 01/07/18 09:30 01/07/18 10:00 Temperature Pulse Rate 91 H 88 84 Respiratory Rate 37 H 0 L 30 H Blood Pressure 145/81 H 139/76 138/80 Pulse Oximetry 93 L 96 95 01/07/18 10:30 01/07/18 11:00 01/07/18 11:30 Temperature Pulse Rate 88 88 91 H Respiratory Rate 28 H 23 36 H Blood Pressure 147/70 H 154/80 H 154/82 H Pulse Oximetry 96 96 96 01/07/18 11:46 01/07/18 12:00 01/07/18 12:30 Temperature 99.1 F Pulse Rate 84 81 Respiratory Rate 20 41 H Blood Pressure 143/76 H 139/67 Pulse Oximetry 91 L 90 L 89 L 01/07/18 13:00 01/07/18 13:30 01/07/18 14:00 Temperature Pulse Rate 84 92 H 90 Respiratory Rate 21 23 23 Blood Pressure 141/73 H 153/81 H Pulse Oximetry 91 L 87 L 88 L 01/07/18 14:01 01/07/18 14:31 Temperature Pulse Rate 94 H 82 Respiratory Rate 38 H 20 Blood Pressure 144/78 H 137/60 Pulse Oximetry 87 L 93 L Intake & Output 01/06/18 01/07/18 01/07/18 18:59 06:59 18:59 Intake Total 650 / 650 271 / 271 Output Total 450 / 450 1225 / 1225 Balance 200 / 200 -954 / -954 Weight 116.2 kg Intake: IV 650 / 650 271 / 271 Zovirax Inj 1,050 MG In NS Inj 171 / 171 150 ML @ 171 mls/hr IV.SIG ONCE ONE Rx#:[id number] KCl 20 mEq Premix Inj 20 meq In 300 / 300 100 ml @ 50 mls/hr IV.SIG Q2H [facility] Rx#:[id number] Vancomycin Inj 1,000 MG In NS 250 / 250 Inj 250 ML @ 250 mls/hr IV.SIG Q24H [facility] Rx#:[id number] Rocephin Inj 2,000 MG In NS Inj 100 / 100 100 / 100 100 ML @ 200 mls/hr IV.SIG Q12H [facility] Rx#:[id number] Oral 0 / 0 Output: Urine 450 / 450 1225 / 1225 Other: Date of Last Bowel Movement 01/06/18 01/04/18 01/04/18 # Bowel Movements 1 0 # Incontinent Bowel Movements 1 - Constitutional no acute distress - Routine HEENT Exam Head: Present: normocephalic Eye: Present: EOMI - Routine Neurological Exam Present: alert, CN II-XII intact, normal reflexes, moving all extremities, normal speech not oriented to place or time knows and age Results - Labs CBC & Chem 7: 01/06/18 04:00 01/06/18 20:31 Laboratory Results - last 24 hr 01/06/18 01/06/18 01/06/18 15:10 15:10 15:10 Potassium CSF Volume (1) 2.8 CSF Supernat Color (1) Clear CSF Gross Blood (1) Trace A CSF WBC (1) 4 CSF RBC (1) 7 H CSF Volume (2) 2.8 CSF Supernat Color (2) Clear CSF Gross Blood (2) Trace A CSF Volume (3) 2.8 CSF Supernat Color (3) Clear CSF Gross Blood (3) 0 CSF Volume (4) 2.8 CSF Supernat Color (4) Clear CSF Gross Blood (4) 0 CSF WBC (4) 7 CSF RBC (4) 2 H CSF Neutrophils % 0 CSF Lymphocytes % 68 CSF Monocytes % 32 CSF Comment CSF Glucose 68 CSF LDH 27 CSF Lactic Acid 1.7 CSF Total Protein 103.0 H 01/06/18 20:31 Potassium 3.7 D CSF Volume (1) CSF Supernat Color (1) CSF Gross Blood (1) CSF WBC (1) CSF RBC (1) CSF Volume (2) CSF Supernat Color (2) CSF Gross Blood (2) CSF Volume (3) CSF Supernat Color (3) CSF Gross Blood (3) CSF Volume (4) CSF Supernat Color (4) CSF Gross Blood (4) CSF WBC (4) CSF RBC (4) CSF Neutrophils % CSF Lymphocytes % CSF Monocytes % CSF Comment CSF Glucose CSF LDH CSF Lactic Acid CSF Total Protein Microbiology 01/04/18 23:53 Blood - Peripheral Aerobic Blood Culture - Preliminary No growth in 2 days 01/04/18 23:53 Blood - Peripheral Anaerobic Blood Culture - Preliminary No growth in 2 days 01/04/18 23:58 Blood - Peripheral Aerobic Blood Culture - Preliminary No growth in 2 days 01/04/18 23:58 Blood - Peripheral Anaerobic Blood Culture - Preliminary No growth in 2 days 01/05/18 00:45 Catheterized Urine Urine Culture - Final No growth in 48 hours 01/06/18 15:10 Lumbar Puncture Gram Stain - Final 01/06/18 15:10 Lumbar Puncture CSF Culture - Preliminary No growth in 24 hours Assessment and Plan - Plan cont keppra check f/u eeg LP all results not in-cont ID recommendations. oob w/Pt
--- NOTE | 2018-01-07 16:34 | P.DIET ---
Nutritional Evaluation Type of nutrition evaluation: initial Nutrition consult regarding: Diet Evaluation Screening comments: 01/06 NPO x3 days Objective - Diagnosis seizure, new onset, intractable - Objective % IBW: 166 (IBW = 154lb) Body Weight Used for Calculations: IBW Energy Needs - Lower Range (kCal/kg): 25 Energy Needs - Upper Range (kCal/kg): 30 Lower Limit kCal/kg (kCals): 1,750 Upper Limit kCal/kg (kCals): 2,100 Lower Limit Protein Factor (Grams per Kg): 1.1 Upper Limit Protein Factor (Grams per Kg): 1.3 Lower Protein Needs (Protein): 77 Upper Protein Needs (Protein): 91 Fluid Factor (ml/kg): 25 Estimated Fluid Needs (ml): 1,750 Dietitian Reviewed in Medical Record: Current diet, Curent medications, Intake & Output, Labs, Medical history Diet Order: NPO Speech Therapy Recommendations: No Objective Comments: PMH: gastric bypass Labs: K+ 2.8, BUN 21, GFR 77, Ca+ 8.0 Assessment Assessment: Pt is currently on a cardiac diet and consumed 25% of his lunch today (01/07). RD to recommend Ensure Original BID for PO supplement. ST recs noted, pt able to eat a regular diet. Will continue to monitor pts PO intake. Labs reviewed, dietitian following. Recommendations: 1. Continue cardiac diet 2. RD to recommend Ensure Original BID for PO supplement 3. Dietitian following Dietitian to Monitor: Lab values, Supplement acceptance, Intake & Output, Diet tolerance, Weight change, PO Intake, Medical course
--- NOTE | 2018-01-07 17:22 | P.PNID ---
Subjective Remarks: is a 72 y/o CM with [place] significant [place] at the bedside who provided most of the history. Patient was reportedly brought to the ER after having a seizure during a police stop over for erratic driving. He was reportedly driving [id number] on the street and when police interviewed him he appeared to be confused and therefore EMS was called. He was given Ativan and transferred to [place] emergency room where he had a second seizure which was described as tonic-clonic in the ER physician's note. Patient reports to me that he was doing fairly okay until Saturday morning. He remembers driving his car on Saturday as well as prior to admission to the local grocery store. He does not remember any fever chills or night sweats. He denies any headaches. Upon discussion with the patient's neighbors it appears that they had taken the patient dinner approximately a week prior to admission and they last saw him 2-3 days prior to admission where he appeared to be at his baseline mental status. Patient's neighbors go on to report that his living conditions are very questionable and patient appears to be somewhat of a quarter. Patient neighbors have noticed mold in his home as well as rat droppings. No prior history of stroke No prior history of seizures No fever chills or night sweats prior to admission. No change in appetite or loss of weight recently. No recent surgeries or any dental procedures. Patient has been seen by neurologist. An MRI was done which was reported as normal with no bleed or abscess. Patient also had an EEG with abnormal activity suggestive of encephalopathic process but no epileptiform activity. Blood cultures on admission are negative so far. All other cultures so far are negative. Due to persistent fevers as well as altered mental status infectious disease was consulted for further evaluation and management. Overnight events reviewed. no fevers no rash No diarrhea Awake but still confused. He tells me he wants to drive his car (points to his bed) to [place] and that the garage door (points to the door of his hospital room) is too small for car to pass and needs to be torn down. Antibiotics: Acyclovir IV Vanco IV Lines: Lines ok Past Medical History: reviewed Allergies/Adverse Reactions: Allergies No Known Allergies Allergy (Verified 01/03/18 10:11) Objective Vital Signs 01/06/18 17:30 01/06/18 18:00 01/06/18 18:30 Temperature Pulse Rate 122 H 126 H 125 H Respiratory Rate 20 19 15 Blood Pressure 136/75 126/93 H 126/84 Pulse Oximetry 99 97 70 L 01/06/18 19:00 01/06/18 19:30 01/06/18 20:00 Temperature 99.1 F 99.1 F Pulse Rate 117 H 86 85 Respiratory Rate 20 19 20 Blood Pressure 125/67 126/71 122/72 Pulse Oximetry 97 97 98 01/06/18 20:30 01/06/18 20:45 01/06/18 21:00 Temperature Pulse Rate 84 80 Respiratory Rate 21 17 Blood Pressure 123/67 119/70 Pulse Oximetry 98 97 99 01/06/18 22:00 01/06/18 22:30 01/06/18 23:00 Temperature Pulse Rate 78 86 81 Respiratory Rate 17 26 H 16 Blood Pressure 120/61 135/67 124/74 Pulse Oximetry 97 99 97 01/06/18 23:30 01/07/18 00:00 01/07/18 00:15 Temperature 99.2 F Pulse Rate 75 76 Respiratory Rate 17 15 Blood Pressure 125/65 122/66 Pulse Oximetry 96 95 96 01/07/18 00:30 01/07/18 01:00 01/07/18 01:30 Temperature Pulse Rate 72 101 H 102 H Respiratory Rate 16 15 17 Blood Pressure 122/66 144/76 H 133/69 Pulse Oximetry 96 95 95 01/07/18 02:00 01/07/18 02:30 01/07/18 03:00 Temperature Pulse Rate 101 H 117 H 85 Respiratory Rate 16 20 21 Blood Pressure 140/72 148/93 H 140/79 Pulse Oximetry 96 97 100 01/07/18 03:30 01/07/18 04:00 01/07/18 04:30 Temperature 99.0 F Pulse Rate 84 111 H 115 H Respiratory Rate 15 12 29 H Blood Pressure 139/74 127/72 140/65 Pulse Oximetry 99 100 100 01/07/18 05:00 01/07/18 05:31 01/07/18 06:00 Temperature Pulse Rate 113 H 119 H 140 H Respiratory Rate 18 35 H Blood Pressure 126/75 117/90 Pulse Oximetry 100 99 93 L 01/07/18 06:01 01/07/18 06:31 01/07/18 07:00 Temperature Pulse Rate 141 H 116 H 124 H Respiratory Rate 27 H 29 H Blood Pressure 162/79 H 153/75 H 150/97 H Pulse Oximetry 94 L 98 100 01/07/18 07:30 01/07/18 07:44 01/07/18 08:00 Temperature 99.1 F Pulse Rate 123 H 138 H Respiratory Rate 30 H 37 H Blood Pressure 142/81 H 145/68 H Pulse Oximetry 95 91 L 01/07/18 08:30 01/07/18 09:00 01/07/18 09:30 Temperature Pulse Rate 90 91 H 88 Respiratory Rate 0 L 37 H 0 L Blood Pressure 136/75 145/81 H 139/76 Pulse Oximetry 93 L 96 01/07/18 10:00 01/07/18 10:30 01/07/18 11:00 Temperature Pulse Rate 84 88 88 Respiratory Rate 30 H 28 H 23 Blood Pressure 138/80 147/70 H 154/80 H Pulse Oximetry 95 96 96 01/07/18 11:30 01/07/18 11:46 01/07/18 12:00 Temperature 99.1 F Pulse Rate 91 H 84 Respiratory Rate 36 H 20 Blood Pressure 154/82 H 143/76 H Pulse Oximetry 96 91 L 90 L 01/07/18 12:30 01/07/18 13:00 01/07/18 13:30 Temperature Pulse Rate 81 84 92 H Respiratory Rate 41 H 21 23 Blood Pressure 139/67 141/73 H 153/81 H Pulse Oximetry 89 L 91 L 87 L 01/07/18 14:00 01/07/18 14:01 01/07/18 14:31 Temperature Pulse Rate 90 94 H 82 Respiratory Rate 23 38 H 20 Blood Pressure 144/78 H 137/60 Pulse Oximetry 88 L 87 L 93 L Intake & Output 01/06/18 01/07/18 01/07/18 18:59 06:59 18:59 Intake Total 650 / 650 271 / 271 Output Total 450 / 450 1225 / 1225 Balance 200 / 200 -954 / -954 Weight 116.2 kg Intake: IV 650 / 650 271 / 271 Zovirax Inj 1,050 MG In NS Inj 171 / 171 150 ML @ 171 mls/hr IV.SIG ONCE ONE Rx#:[id number] KCl 20 mEq Premix Inj 20 meq In 300 / 300 100 ml @ 50 mls/hr IV.SIG Q2H [facility] Rx#:[id number] Vancomycin Inj 1,000 MG In NS 250 / 250 Inj 250 ML @ 250 mls/hr IV.SIG Q24H [facility] Rx#:[id number] Rocephin Inj 2,000 MG In NS Inj 100 / 100 100 / 100 100 ML @ 200 mls/hr IV.SIG Q12H [facility] Rx#:[id number] Oral 0 / 0 Output: Urine 450 / 450 1225 / 1225 Other: Date of Last Bowel Movement 01/06/18 01/04/18 01/04/18 # Bowel Movements 1 0 # Incontinent Bowel Movements 1 01/04/18 23:53 Blood - Peripheral Aerobic Blood Culture - Preliminary No growth in 2 days 01/04/18 23:53 Blood - Peripheral Anaerobic Blood Culture - Preliminary No growth in 2 days 01/04/18 23:58 Blood - Peripheral Aerobic Blood Culture - Preliminary No growth in 2 days 01/04/18 23:58 Blood - Peripheral Anaerobic Blood Culture - Preliminary No growth in 2 days 01/05/18 00:45 Catheterized Urine Urine Culture - Final No growth in 48 hours 01/06/18 15:10 Lumbar Puncture Gram Stain - Final 01/06/18 15:10 Lumbar Puncture CSF Culture - Preliminary No growth in 24 hours 01/06/18 15:10 Cerebral Spinal Fluid - Lumbar Puncture Acid Fast Bacilli Smear - Pending 01/06/18 15:10 Cerebral Spinal Fluid - Lumbar Puncture Mycobacterial Culture - Pending 01/06/18 13:20 Blood - Peripheral Blood Fungal Culture - Pending 01/06/18 13:20 Blood - Peripheral Blood Fungal Culture - Pending 01/05/18 23:00 Nasal Wash Influenza Types A,B Antigen - Final Negative for FLU A and B antigen Infection due to influenza A or B cannot be ruled out since the antigen present in the sample may be below the detection limit of the test. Lab - Hematology Results 01/06/18 04:00 WBC 6.6 RBC 4.84 Hgb 14.6 Hct 43.8 MCV 90.4 MCH 30.2 MCHC 33.4 RDW 14.8 Plt Count 168 MPV 8.2 Lab - Chemistry Results 01/05/18 01/06/18 01/06/18 20:23 04:00 20:31 Sodium 149 H Potassium 2.8 L* D 3.7 D Chloride 105 Carbon Dioxide 35.4 H Anion Gap 9 BUN 21 H Creatinine 0.96 Estimated GFR 77 L Random Glucose 106 Calcium 8.0 L Troponin I Less than 0.02 L Imaging: ITS Impressions Head CT 01/03/18 10:11 CONCLUSION: No acute intracranial abnormality is identified. . Abdomen X-Ray 01/04/18 00:00 CONCLUSION: Surgical clips in the upper abdomen. Bowel gas pattern within normal limits. Chest X-Ray 01/04/18 22:32 CONCLUSION: No significant change Chest CTA 01/05/18 00:00 CONCLUSION: 1. No pulmonary embolus. 2. Small bilateral pleural effusions. Dependent/compressive appearing atelectasis of both lower lobes. 3. Patchy nonspecific parenchymal opacities of both lungs. There is a 3.1 cm nodular area of the right lower lobe, nonspecific but most likely infectious or inflammatory, possibly a vascular malformation. Comparison to any previous outside facility chest CTs would be helpful. Three-month follow-up noncontrast chest CT is recommended if there are no priors. 4. Coronary artery calcification. Head MRI 01/05/18 00:00 CONCLUSION: 1. Negative MR Brain non contrast. 2. No evidence of acute infarct, hemorrhage, mass or edema. Lumbar Puncture Fluoroscopy 01/06/18 00:00 CONCLUSION: 1. Uncomplicated fluoroscopically guided lumbar puncture. Physical Exam: GENERAL: Poorly kempt, well-nourished well-developed, not in acute distress SKIN: Cool and dry, no generalized rash HEAD: Atraumatic. Normocephalic. No temporal or scalp tenderness. EYES: Pupils equal round and reactive. Scleral icterus. No injection or drainage. No petechia ENT: Nothing abnormal detected. NECK: Trachea midline. Supple, nontender, no meningeal signs. CARDIOVASCULAR: HS audible. RESPIRATORY: Clear to auscultation bilaterally. GASTROINTESTINAL: Abdomen soft nontender. MUSCULOSKELETAL: Extremities without clubbing, cyanosis. NEUROLOGICAL: Alert oriented 2. Nonfocal. Psych cooperative IV line sites ok Assessment and Plan - Plan Sepsis Fever with altered mental status rule out meningoencephalitis Aspiration pneumonia or community-acquired pneumonia. High risk for aspiration. Acute metabolic encephalopathy sepsis rule out encephalitis Acute renal failure now resolved creatinine improved Recommendations Continue Acyclovir IV (pending CSF HSV 1/2 PCR) CSF studies WBC 7, total protein 103. ? post seizure vs pathological. dw . DC Vanco IV target trough 15-20 Continue Ceftriaxone IV Follow cultures Follow clinical course.
--- NOTE | 2018-01-07 17:41 | P.PNIM ---
Subjective Interval history: Patient is the most awake and interactive seen him. He has 2 neighbors at bedside. He remains confused but is oriented enough to know that he wants his restraints off and that he can remove them with scissors if I would just give them to him. Physical Exam Vital signs: Vital Signs 01/06/18 18:00 01/06/18 18:30 01/06/18 19:00 Temperature Pulse Rate 126 H 125 H 117 H Respiratory Rate 19 15 20 Blood Pressure 126/93 H 126/84 125/67 Pulse Oximetry 97 70 L 97 01/06/18 19:30 01/06/18 20:00 01/06/18 20:30 Temperature 99.1 F 99.1 F Pulse Rate 86 85 84 Respiratory Rate 19 20 21 Blood Pressure 126/71 122/72 123/67 Pulse Oximetry 97 98 98 01/06/18 20:45 01/06/18 21:00 01/06/18 22:00 Temperature Pulse Rate 80 78 Respiratory Rate 17 17 Blood Pressure 119/70 120/61 Pulse Oximetry 97 99 97 01/06/18 22:30 01/06/18 23:00 01/06/18 23:30 Temperature Pulse Rate 86 81 75 Respiratory Rate 26 H 16 17 Blood Pressure 135/67 124/74 125/65 Pulse Oximetry 99 97 96 01/07/18 00:00 01/07/18 00:15 01/07/18 00:30 Temperature 99.2 F Pulse Rate 76 72 Respiratory Rate 15 16 Blood Pressure 122/66 122/66 Pulse Oximetry 95 96 96 01/07/18 01:00 01/07/18 01:30 01/07/18 02:00 Temperature Pulse Rate 101 H 102 H 101 H Respiratory Rate 15 17 16 Blood Pressure 144/76 H 133/69 140/72 Pulse Oximetry 95 95 96 01/07/18 02:30 01/07/18 03:00 01/07/18 03:30 Temperature Pulse Rate 117 H 85 84 Respiratory Rate 20 21 15 Blood Pressure 148/93 H 140/79 139/74 Pulse Oximetry 97 100 99 01/07/18 04:00 01/07/18 04:30 01/07/18 05:00 Temperature 99.0 F Pulse Rate 111 H 115 H 113 H Respiratory Rate 12 29 H 18 Blood Pressure 127/72 140/65 126/75 Pulse Oximetry 100 100 100 01/07/18 05:31 01/07/18 06:00 01/07/18 06:01 Temperature Pulse Rate 119 H 140 H 141 H Respiratory Rate 35 H Blood Pressure 117/90 162/79 H Pulse Oximetry 99 93 L 94 L 01/07/18 06:31 01/07/18 07:00 01/07/18 07:30 Temperature Pulse Rate 116 H 124 H 123 H Respiratory Rate 27 H 29 H 30 H Blood Pressure 153/75 H 150/97 H 142/81 H Pulse Oximetry 98 100 01/07/18 07:44 01/07/18 08:00 01/07/18 08:30 Temperature 99.1 F Pulse Rate 138 H 90 Respiratory Rate 37 H 0 L Blood Pressure 145/68 H 136/75 Pulse Oximetry 95 91 L 01/07/18 09:00 01/07/18 09:30 01/07/18 10:00 Temperature Pulse Rate 91 H 88 84 Respiratory Rate 37 H 0 L 30 H Blood Pressure 145/81 H 139/76 138/80 Pulse Oximetry 93 L 96 95 01/07/18 10:30 01/07/18 11:00 01/07/18 11:30 Temperature Pulse Rate 88 88 91 H Respiratory Rate 28 H 23 36 H Blood Pressure 147/70 H 154/80 H 154/82 H Pulse Oximetry 96 96 96 01/07/18 11:46 01/07/18 12:00 01/07/18 12:30 Temperature 99.1 F Pulse Rate 84 81 Respiratory Rate 20 41 H Blood Pressure 143/76 H 139/67 Pulse Oximetry 91 L 90 L 89 L 01/07/18 13:00 01/07/18 13:30 01/07/18 14:00 Temperature Pulse Rate 84 92 H 90 Respiratory Rate 21 23 23 Blood Pressure 141/73 H 153/81 H Pulse Oximetry 91 L 87 L 88 L 01/07/18 14:01 01/07/18 14:31 Temperature Pulse Rate 94 H 82 Respiratory Rate 38 H 20 Blood Pressure 144/78 H 137/60 Pulse Oximetry 87 L 93 L Intake & Output 01/06/18 01/07/18 01/07/18 18:59 06:59 18:59 Intake Total 650 / 650 271 / 271 Output Total 450 / 450 1225 / 1225 Balance 200 / 200 -954 / -954 Weight 116.2 kg Intake: IV 650 / 650 271 / 271 Zovirax Inj 1,050 MG In NS Inj 171 / 171 150 ML @ 171 mls/hr IV.SIG ONCE ONE Rx#:[id number] KCl 20 mEq Premix Inj 20 meq In 300 / 300 100 ml @ 50 mls/hr IV.SIG Q2H [facility] Rx#:[id number] Vancomycin Inj 1,000 MG In NS 250 / 250 Inj 250 ML @ 250 mls/hr IV.SIG Q24H [facility] Rx#:[id number] Rocephin Inj 2,000 MG In NS Inj 100 / 100 100 / 100 100 ML @ 200 mls/hr IV.SIG Q12H [facility] Rx#:[id number] Oral 0 / 0 Output: Urine 450 / 450 1225 / 1225 Other: Date of Last Bowel Movement 01/06/18 01/04/18 01/04/18 # Bowel Movements 1 0 # Incontinent Bowel Movements 1 Narrative: GENERAL: Awake but not well oriented, well-nourished well-developed, not in acute distress SKIN: Cool and dry, no generalized rash HEAD: Atraumatic. Normocephalic. No temporal or scalp tenderness. EYES: Pupils equal round and reactive. Scleral icterus. No injection or drainage. No petechia ENT: Nothing abnormal detected. NECK: Trachea midline. Supple, nontender, no meningeal signs. CARDIOVASCULAR: HS audible. RESPIRATORY: Clear to auscultation bilaterally. GASTROINTESTINAL: Abdomen soft nontender. MUSCULOSKELETAL: Extremities without clubbing, cyanosis. NEUROLOGICAL: Alert oriented 2. Nonfocal. Psych cooperative, improving delirium Results - Labs CBC & Chem 7: 01/06/18 04:00 01/06/18 20:31 Laboratory Results - last 24 hr 01/06/18 20:31 Potassium 3.7 D Microbiology 01/04/18 23:53 Blood - Peripheral Aerobic Blood Culture - Preliminary No growth in 2 days 01/04/18 23:53 Blood - Peripheral Anaerobic Blood Culture - Preliminary No growth in 2 days 01/04/18 23:58 Blood - Peripheral Aerobic Blood Culture - Preliminary No growth in 2 days 01/04/18 23:58 Blood - Peripheral Anaerobic Blood Culture - Preliminary No growth in 2 days 01/05/18 00:45 Catheterized Urine Urine Culture - Final No growth in 48 hours 01/06/18 15:10 Lumbar Puncture Gram Stain - Final 11/05/18 15:10 Lumbar Puncture CSF Culture - Preliminary No growth in 24 hours Assessment and Plan - Plan New onset seizures Etiology is unclear, he 72 years old and this is his first occurrence with seizures Consider sleep deprivation, neighbors noted light has been on all night Consider black mold and [place] droppings in home Consider possibility of pesticides from eating 20 tomatoes week purchased at a [employer] market Consider history of gastric bypass surgery in 2010, B12, vitamin D, vitamin C are pending Vitamin B12, vitamin D are at acceptable levels, magnesium was within normal limits, TSH was normal RPR, hepatitis, HIV are all nonreactive Patient is improving, affect is becoming more appropriate, still somewhat confused Appreciate neurology consult Fever Lactic acid within normal limits Covered empirically with Vancomycin, Zosyn, Diflucan Lumbar puncture shows cytology and cultures pending Appreciate Infectious Disease consult Respiratory distress Improved, discontinuation of IV fluids yesterday Metabolic encephalopathy MRI of brain normal Improving affect, delirium seems to have begun to subside today DVT prophylaxis Convert to Lovenox
[2018-01-07] MEDS: Enoxaparin Inj 40 MG/0.4 ML Syringe SQ SCH (19:16)
[2018-01-07] MEDS: Acyclovir Inj 1,050 MG in Sodium Chlor 0.9% Inj 150 ML IV.SIG SCH (20:09)
--- NOTE | 2018-01-08 01:03 | P.PNCA ---
Subjective Interval history: No events overnight More awake today but confused Medications and Allergies Active Medications: Active Medications Acetaminophen (Tylenol) 650 mg PO Q6H PRN PRN Reason: PAIN 1-10 AND/OR FEVER >101F Albuterol (Duoneb Neb (Prn)) 1 ampul NEB Q2HR NEB PRN PRN Reason: SHORTNESS OF BREATH/WHEEZING Enoxaparin Sodium (Lovenox Inj) 40 mg SQ Q24H [facility] Last Admin: 01/07/18 19:16 Dose: 40 mg Famotidine (Pepcid Pf Inj) 20 mg IV.PUSH Q12HR [facility] Last Admin: 01/07/18 20:09 Dose: 20 mg Famotidine (Pepcid) 20 mg PO BID [facility] Last Admin: 01/07/18 20:10 Dose: Not Given Vancomycin HCl 1,000 mg/ (Sodium Chloride) 250 mls @ 250 mls/hr IV.SIG Q24H [facility] Last Infusion: 01/07/18 13:50 Dose: Infused Fluconazole (Diflucan 200 Mg Premix Bag) 100 mls @ 100 mls/hr IV.SIG Q24H [facility] Last Infusion: 01/07/18 21:25 Dose: Infused Ceftriaxone Sodium 2,000 mg/ (Sodium Chloride) 100 mls @ 200 mls/hr IV.SIG Q12H [facility] Last Infusion: 01/07/18 16:15 Dose: Infused Acyclovir Sodium 1,050 mg/ (Sodium Chloride) 171 mls @ 171 mls/hr IV.SIG Q8H [facility] Last Infusion: 01/07/18 21:25 Dose: Infused Lorazepam (Ativan Inj) 2 mg IV.PUSH Q4H PRN PRN Reason: Agitation/sedation Last Admin: 01/05/18 13:00 Dose: 2 mg Lorazepam (Ativan Inj) 2 mg IV.PUSH ONCE PRN PRN Reason: SEIZURES Metoprolol Tartrate (Lopressor) 25 mg PO BID [facility] Ondansetron HCl (Zofran Inj) 4 mg IV.PUSH Q6H PRN PRN Reason: NAUSEA OR VOMITING Sennosides (Senokot) 17.2 mg PO Q12H PRN PRN Reason: Moderate Constipation Sodium Chloride (Ns Flush) 2 ml IV.FLUSH BID [facility] Last Admin: 01/07/18 20:10 Dose: 2 ml Sodium Chloride (Ns Flush) 2 ml IV.FLUSH UNSCH PRN PRN Reason: FLUSH AFTER USING IV ACCESS Allergies Allergy/AdvReac Type Severity Reaction Status Date / Time No Known Allergies Allergy Verified 01/03/18 10:11 Home Medications Medication Instructions Recorded Confirmed Type Unable to Obtain Home Meds 01/03/18 01/03/18 History Physical Exam Vital signs: Vital Signs 01/07/18 01:30 01/07/18 02:00 01/07/18 02:30 Temperature Pulse Rate 102 H 101 H 117 H Respiratory Rate 17 16 20 Blood Pressure 133/69 140/72 148/93 H Pulse Oximetry 95 96 97 01/07/18 03:00 01/07/18 03:30 01/07/18 04:00 Temperature 99.0 F Pulse Rate 85 84 111 H Respiratory Rate 21 15 12 Blood Pressure 140/79 139/74 127/72 Pulse Oximetry 100 99 100 01/07/18 04:30 01/07/18 05:00 01/07/18 05:31 Temperature Pulse Rate 115 H 113 H 119 H Respiratory Rate 29 H 18 Blood Pressure 140/65 126/75 117/90 Pulse Oximetry 100 100 99 01/07/18 06:00 01/07/18 06:01 01/07/18 06:31 Temperature Pulse Rate 140 H 141 H 116 H Respiratory Rate 35 H 27 H Blood Pressure 162/79 H 153/75 H Pulse Oximetry 93 L 94 L 98 01/07/18 07:00 01/07/18 07:30 01/07/18 07:44 Temperature Pulse Rate 124 H 123 H Respiratory Rate 29 H 30 H Blood Pressure 150/97 H 142/81 H Pulse Oximetry 100 95 01/07/18 08:00 01/07/18 08:30 01/07/18 09:00 Temperature 99.1 F Pulse Rate 138 H 90 91 H Respiratory Rate 37 H 0 L 37 H Blood Pressure 145/68 H 136/75 145/81 H Pulse Oximetry 91 L 93 L 01/07/18 09:30 01/07/18 10:00 01/07/18 10:30 Temperature Pulse Rate 88 84 88 Respiratory Rate 0 L 30 H 28 H Blood Pressure 139/76 138/80 147/70 H Pulse Oximetry 96 95 96 01/07/18 11:00 01/07/18 11:30 01/07/18 11:46 Temperature Pulse Rate 88 91 H Respiratory Rate 23 36 H Blood Pressure 154/80 H 154/82 H Pulse Oximetry 96 96 91 L 01/07/18 12:00 01/07/18 12:30 01/07/18 13:00 Temperature 99.1 F Pulse Rate 84 81 84 Respiratory Rate 20 41 H 21 Blood Pressure 143/76 H 139/67 141/73 H Pulse Oximetry 90 L 89 L 91 L 01/07/18 13:30 01/07/18 14:00 01/07/18 14:01 Temperature Pulse Rate 92 H 90 94 H Respiratory Rate 23 23 38 H Blood Pressure 153/81 H 144/78 H Pulse Oximetry 87 L 88 L 87 L 01/07/18 14:31 01/07/18 15:00 01/07/18 15:30 Temperature Pulse Rate 82 80 75 Respiratory Rate 20 20 19 Blood Pressure 137/60 141/73 H 142/77 H Pulse Oximetry 93 L 90 L 93 L 01/07/18 16:00 01/07/18 16:30 01/07/18 17:00 Temperature 98.9 F Pulse Rate 74 81 78 Respiratory Rate 18 32 H 21 Blood Pressure 144/79 H 171/83 H 164/82 H Pulse Oximetry 94 L 92 L 88 L 01/07/18 17:30 01/07/18 18:00 01/07/18 18:01 Temperature Pulse Rate 81 Respiratory Rate 22 Blood Pressure 160/90 H 188/102 H Pulse Oximetry 89 L 91 L 91 L 01/07/18 18:21 01/07/18 18:30 01/07/18 19:00 Temperature Pulse Rate 102 H 116 H 122 H Respiratory Rate 22 23 22 Blood Pressure 141/66 H 129/62 Pulse Oximetry 91 L 90 L 94 L 01/07/18 19:01 01/07/18 19:30 01/07/18 20:00 Temperature 99.3 F Pulse Rate 132 H 131 H 84 Respiratory Rate 22 23 23 Blood Pressure 142/93 H 142/63 H 130/69 Pulse Oximetry 94 L 88 L 91 L 01/07/18 20:30 18 21:00 01/07/18 21:30 Temperature Pulse Rate 81 80 78 Respiratory Rate 24 21 19 Blood Pressure 122/72 117/63 110/63 Pulse Oximetry 92 L 90 L 92 L 01/07/18 22:00 01/07/18 22:30 11/06/18 23:00 Temperature Pulse Rate 72 72 70 Respiratory Rate 21 21 21 Blood Pressure 118/65 120/65 117/67 Pulse Oximetry 92 L 93 L 93 L 01/07/18 23:30 01/08/18 00:00 Temperature 99.4 F Pulse Rate 100 H 101 H Respiratory Rate 27 H 21 Blood Pressure 122/71 132/71 Pulse Oximetry 94 L 92 L Intake & Output 01/07/18 01/07/18 01/08/18 06:59 18:59 06:59 Intake Total 371 / 371 1550 / 1550 271 / 271 Output Total 1225 / 1225 475 / 475 Balance -854 / -854 1075 / 1075 271 / 271 Weight 116.2 kg Intake: IV 371 / 371 350 / 350 271 / 271 Zovirax Inj 1,050 MG In NS Inj 171 / 171 171 / 171 150 ML @ 171 mls/hr IV.SIG Q8H [facility] Rx#:[id number] Diflucan 200 mg Premix Bag 100 100 / 100 100 / 100 ML @ 100 mls/hr IV.SIG Q24H [facility] Rx#:[id number] Vancomycin Inj 1,000 MG In NS 250 / 250 Inj 250 ML @ 250 mls/hr IV.SIG Q24H [facility] Rx#:[id number] Rocephin Inj 2,000 MG In NS Inj 100 / 100 100 / 100 100 ML @ 200 mls/hr IV.SIG Q12H [facility] Rx#:[id number] Oral 1200 / 1200 Output: Urine 1225 / 1225 475 / 475 Other: # Incontinent Voids 2 Date of Last Bowel Movement 01/04/18 01/04/18 01/04/18 # Bowel Movements 0 0 Narrative: GENERAL: Awake but not well oriented, well-nourished well-developed, not in acute distress SKIN: Cool and dry, no generalized rash HEAD: Atraumatic. Normocephalic. No temporal or scalp tenderness. EYES: Pupils equal round and reactive. Scleral icterus. No injection or drainage. No petechia ENT: Nothing abnormal detected. NECK: Trachea midline. Supple, nontender, no meningeal signs. CARDIOVASCULAR: Irregularly irregular RESPIRATORY: Clear to auscultation bilaterally. GASTROINTESTINAL: Abdomen soft nontender. MUSCULOSKELETAL: Extremities without clubbing, cyanosis. NEUROLOGICAL: Alert oriented 2. Nonfocal. Psych cooperative, improving delirium Results 01/06/18 04:00 01/06/18 20:31 Coagulation 01/06/18 Range/Units 10:50 PT 12.6 H (9.8-11.6) sec CBC 01/06/18 Range/Units 04:00 WBC 6.6 (4.0-11.0) th/mm3 RBC 4.84 (4.50-5.90) mil/mm3 Hgb 14.6 (13.0-17.0) gm/dL Hct 43.8 (39.0-51.0) % Plt Count 168 (150-450) th/mm3 Comprehensive Metabolic Panel 01/06/18 01/06/18 Range/Units 04:00 20:31 Sodium 149 H (136-145) meq/L Potassium 2.8 L* D 3.7 D (3.5-5.1) meq/L Chloride 105 (98-107) meq/L Carbon Dioxide 35.4 H (21.0-32.0) meq/L BUN 21 H (7-18) mg/dL Creatinine 0.96 (0.60-1.30) mg/dL Calcium 8.0 L (8.5-10.1) mg/dL Intake and Output 01/07/18 01/07/18 01/08/18 14:59 22:59 06:59 Intake Total 250 / 250 1571 / 1571 Output Total 475 / 475 Balance 250 / 250 1096 / 1096 Intake: IV 250 / 250 371 / 371 Zovirax Inj 1,050 MG In NS Inj 171 / 171 150 ML @ 171 mls/hr IV.SIG Q8H [facility] Rx#:[id number] Diflucan 200 mg Premix Bag 100 100 / 100 ML @ 100 mls/hr IV.SIG Q24H [facility] Rx#:[id number] Vancomycin Inj 1,000 MG In NS 250 / 250 Inj 250 ML @ 250 mls/hr IV.SIG Q24H [facility] Rx#:[id number] Rocephin Inj 2,000 MG In NS Inj 100 / 100 100 ML @ 200 mls/hr IV.SIG Q12H [facility] Rx#:[id number] Oral 1200 / 1200 Output: Urine 475 / 475 Other: # Incontinent Voids 2 Date of Last Bowel Movement 01/04/18 01/04/18 01/04/18 # Bowel Movements 0 - Imaging and Cardiology Imaging: Impressions Lumbar Puncture Fluoroscopy 01/06/18 00:00 CONCLUSION: 1. Uncomplicated fluoroscopically guided lumbar puncture. Assessment and Plan - Assessment (1) Afib Code(s): I48.91 - Unspecified atrial fibrillation Status: Acute (2) New onset seizure Code(s): R56.9 - Unspecified convulsions Status: Acute (3) Recurrent fever Code(s): A68.9 - Relapsing fever, unspecified Status: Acute (4) Respiratory distress Code(s): R06.03 - Acute respiratory distress Status: Acute (5) Metabolic encephalopathy Code(s): G93.41 - Metabolic encephalopathy Status: Acute (6) Shortness of breath Code(s): R06.02 - Shortness of breath Status: Acute - Plan 1) Fever 2) New onset seizure Per neurology 3) New onset Afib In and out of paroxysmal Afib Will add Metoprolol to try to help control rates when in AFib Not an anticoagulation candidate due to seizures and unknown ability to take and gait status 4) 2D echo pending
[2018-01-08 04:30] LABS: Vitamin C (Ascorbic Acid) 0.8 mg/dL (0.4 - 2.0)
[2018-01-08] MEDS: Acyclovir Inj 1,050 MG in Sodium Chlor 0.9% Inj 150 ML IV.SIG SCH ×2 (05:51→13:15)
[2018-01-08 07:50] LABS: Anion Gap 8 meq/L (5-15); Blood Urea Nitrogen 24 mg/dL (7-18); Calcium 8.4 mg/dL (8.5-10.1); Carbon Dioxide 31.9 meq/L (21.0-32.0); Chloride 113 meq/L (98-107); Glomerular Filtration Rate Greater Than 89 mL/min (>89); Glucose,Random 108 mg/dL (74-106); Potassium 3.4 meq/L (3.5-5.1); Sodium 153 meq/L (136-145)
[2018-01-08] MEDS: Famotidine 20 MG Tablet PO SCH ×2 (08:37→21:39)
[2018-01-08] MEDS: Famotidine PF Inj 20 MG/2 ML Vial IV.PUSH SCH ×2 (08:38→21:39)
[2018-01-08] MEDS: Metoprolol Tartrate 25 MG Tablet PO SCH ×2 (08:38→21:39)
[2018-01-08] MEDS: Vancomycin Inj 1,000 MG in Sodium Chlor 0.9% Inj 250 ML IV.SIG SCH (11:24)
[2018-01-08] MEDS ORDERED: Sodium Chloride 0.45 % Inj 500 ML IV.SIG ONE (11:47)
--- NOTE | 2018-01-08 11:53 | P.PNIM ---
Subjective Interval history: 9-year-old male admitted for seizures with subsequent delirium and fevers. His delirium is improved greatly at this point, he is clearly verbal, alert and oriented x2, his only complaint is that he would like his restraints off. Physical Exam Vital signs: Vital Signs 01/07/18 12:00 01/07/18 12:30 01/07/18 13:00 Temperature 99.1 F Pulse Rate 84 81 84 Respiratory Rate 20 41 H 21 Blood Pressure 143/76 H 139/67 141/73 H Pulse Oximetry 90 L 89 L 91 L 01/07/18 13:30 01/07/18 14:00 01/07/18 14:01 Temperature Pulse Rate 92 H 90 94 H Respiratory Rate 23 23 38 H Blood Pressure 153/81 H 144/78 H Pulse Oximetry 87 L 88 L 87 L 01/07/18 14:31 01/07/18 15:00 01/07/18 15:30 Temperature Pulse Rate 82 80 75 Respiratory Rate 20 20 19 Blood Pressure 137/60 141/73 H 142/77 H Pulse Oximetry 93 L 90 L 93 L 01/07/18 16:00 01/07/18 16:30 01/07/18 17:00 Temperature 98.9 F Pulse Rate 74 81 78 Respiratory Rate 18 32 H 21 Blood Pressure 144/79 H 171/83 H 164/82 H Pulse Oximetry 94 L 92 L 88 L 01/07/18 17:30 01/07/18 18:00 01/07/18 18:01 Temperature Pulse Rate 81 Respiratory Rate 22 Blood Pressure 160/90 H 188/102 H Pulse Oximetry 89 L 91 L 91 L 01/07/18 18:21 01/07/18 18:30 01/07/18 19:00 Temperature Pulse Rate 102 H 116 H 122 H Respiratory Rate 22 23 22 Blood Pressure 141/66 H 129/62 Pulse Oximetry 91 L 90 L 94 L 01/07/18 19:01 01/07/18 19:30 01/07/18 20:00 Temperature 99.3 F Pulse Rate 132 H 131 H 84 Respiratory Rate 22 23 23 Blood Pressure 142/93 H 142/63 H 130/69 Pulse Oximetry 94 L 88 L 91 L 01/07/18 20:30 01/07/18 21:00 01/07/18 21:30 Temperature Pulse Rate 81 80 78 Respiratory Rate 24 21 19 Blood Pressure 122/72 117/63 110/63 Pulse Oximetry 92 L 90 L 92 L 01/07/18 22:00 01/07/18 22:30 01/07/18 23:00 Temperature Pulse Rate 72 72 70 Respiratory Rate 21 21 21 Blood Pressure 118/65 120/65 117/67 Pulse Oximetry 92 L 93 L 93 L 01/07/18 23:30 01/08/18 00:00 01/08/18 00:30 Temperature 99.4 F Pulse Rate 100 H 101 H 104 H Respiratory Rate 27 H 21 22 Blood Pressure 122/71 132/71 130/70 Pulse Oximetry 94 L 92 L 92 L 01/08/18 01:00 01/08/18 01:30 01/08/18 02:00 Temperature Pulse Rate 102 H 100 H 104 H Respiratory Rate 21 21 22 Blood Pressure 132/86 130/85 134/76 Pulse Oximetry 91 L 92 L 90 L 01/08/18 02:30 01/08/18 03:00 01/08/18 04:00 Temperature 98.9 F Pulse Rate 105 H 80 71 Respiratory Rate 23 23 21 Blood Pressure 151/85 H 163/75 H 134/68 Pulse Oximetry 93 L 95 95 01/08/18 04:12 01/08/18 07:00 01/08/18 07:30 Temperature 98.9 F Pulse Rate 77 80 Respiratory Rate 22 Blood Pressure 156/77 H 160/80 H Pulse Oximetry 95 01/08/18 08:00 01/08/18 08:31 01/08/18 08:37 Temperature Pulse Rate 79 105 H Respiratory Rate 24 20 19 Blood Pressure 133/59 L Pulse Oximetry 100 100 01/08/18 09:00 01/08/18 09:30 01/08/18 09:40 Temperature Pulse Rate 93 H Respiratory Rate 24 20 Blood Pressure 159/95 H 164/91 H Pulse Oximetry 100 100 97 01/08/18 10:00 01/08/18 10:30 Temperature Pulse Rate 98 H 96 H Respiratory Rate 19 19 Blood Pressure 147/86 H 152/97 H Pulse Oximetry 98 96 Intake & Output 01/07/18 01/08/18 01/08/18 18:59 06:59 18:59 Intake Total 1550 / 1550 902 / 902 Output Total 475 / 475 Balance 1075 / 1075 902 / 902 Weight 115.9 kg Intake: IV 350 / 350 542 / 542 Zovirax Inj 1,050 MG In NS Inj 342 / 342 150 ML @ 171 mls/hr IV.SIG Q8H [facility] Rx#:[id number] Diflucan 200 mg Premix Bag 100 100 / 100 ML @ 100 mls/hr IV.SIG Q24H [facility] Rx#:[id number] Vancomycin Inj 1,000 MG In NS 250 / 250 Inj 250 ML @ 250 mls/hr IV.SIG Q24H [facility] Rx#:[id number] Rocephin Inj 2,000 MG In NS Inj 100 / 100 100 / 100 100 ML @ 200 mls/hr IV.SIG Q12H [facility] Rx#:[id number] Oral 1200 / 1200 360 / 360 Output: Urine 475 / 475 Other: # Incontinent Voids 2 3 Date of Last Bowel Movement 01/04/18 01/04/18 01/08/18 # Bowel Movements 0 # Incontinent Bowel Movements 1 1 Narrative: GENERAL: Alert and oriented x2, well-nourished well-developed, not in acute distress SKIN: Cool and dry, no generalized rash HEAD: Atraumatic. Normocephalic. No temporal or scalp tenderness. EYES: Pupils equal round and reactive. Scleral icterus. No injection or drainage. No petechia ENT: Nothing abnormal detected. NECK: Trachea midline. Supple, nontender, no meningeal signs. CARDIOVASCULAR: Irregularly irregular RESPIRATORY: Clear to auscultation bilaterally. GASTROINTESTINAL: Abdomen soft nontender. MUSCULOSKELETAL: Extremities without clubbing, cyanosis. NEUROLOGICAL: Alert oriented 2. Nonfocal. Psych cooperative, mostly oriented today, only residual delirium Results - Labs CBC & Chem 7: 01/06/18 04:00 01/08/18 06:43 Laboratory Results - last 24 hr 01/03/18 01/08/18 21:04 06:43 Sodium 153 H Potassium 3.4 L Chloride 113 H Carbon Dioxide 31.9 Anion Gap 8 BUN 24 H Creatinine 0.77 Estimated GFR Greater than 89 Random Glucose 108 H Calcium 8.4 L Free PSA 0.4 Total PSA 0.9 PSA Free/Total Ratio 0 Ascorbic Acid 0.8000 Microbiology 01/04/18 23:53 Blood - Peripheral Aerobic Blood Culture - Preliminary No growth in 3 days 01/04/18 23:53 Blood - Peripheral Anaerobic Blood Culture - Preliminary No growth in 3 days 01/04/18 23:58 Blood - Peripheral Aerobic Blood Culture - Preliminary No growth in 3 days 01/04/18 23:58 Blood - Peripheral Anaerobic Blood Culture - Preliminary No growth in 3 days 01/06/18 15:10 Lumbar Puncture Gram Stain - Final 01/06/18 15:10 Lumbar Puncture CSF Culture - Preliminary No growth in 48 hours 01/05/18 00:45 Catheterized Urine Urine Culture - Final No growth in 48 hours Assessment and Plan - Plan New onset seizures Etiology is unclear, he 72 years old and this is his first occurrence with seizures Consider sleep deprivation, molding home, pesticides from 20 tomatoes per week, or other Consider history of gastric bypass surgery in 2010, B12, vitamin D, vitamin C are pending Vitamin B12, vitamin D are at acceptable levels, magnesium was within normal limits, TSH was normal RPR, hepatitis, HIV are all nonreactive Patient is alert and oriented x2 today, thus far cooperative with staff after removal of one restraint on wrist Appreciate neurology consult Fever Lactic acid remains within normal limits Covered empirically with Vancomycin, Zosyn, Diflucan Lumbar puncture cytology and cultures pending Appreciate Infectious Disease consult Hypernatremia 500 mL of half-normal saline x1 Follow respiratory status given recent respiratory distress from fluid overload Metabolic encephalopathy MRI of brain normal His affect is greatly improved today, he is alert and oriented x2, awake, cooperative DVT prophylaxis Convert to Lovenox
--- NOTE | 2018-01-08 14:17 | MG ---
cc: Richardson Summers MD, PhD TEST NUMBER: [id number] TECHNIQUE: 17-channel EEG. DESCRIPTION: Background rhythm shows a symmetrical alpha frequency of 8-9 Hz. Amplitude is about 20 microvolts. During drowsiness, there is mild slowing in the theta range. No lateralizing features were identified. No epileptiform features seen. Photic is normal. INTERPRETATION: Normal electroencephalogram. Richardson Summers MD, PhD LORE/ct , 02:02 PM , 02:06 PM
--- NOTE | 2018-01-08 16:27 | P.PNPAL ---
Palliative care continues to follow along with Mr. Clement. Seen in room, RN in providing care. Mr. Clement continues with confusion. RN reports he is fairly redirectable. He does not engage much in conversation with me today. Mr. Mohamud (friend) arrived to unit shortly after my exit from room. Answered his questions and concerns to the best of my ability. Continue to await improvement in mentation to address goals of medical treatment with patient. If unable to improve would recommend Mr. Mohamud as health care proxy as he has known Mr. Clement for 30+ years and is agreeable to serve in this role. Mr. Clement is also supported by friends/neighbors whom have been visiting and whom Mr. Mohamud has contact with as well. Palliative care will continue to follow throughout hospitalization.
--- NOTE | 2018-01-08 17:02 | ECHRPT ---
Indication: A FIB FLUTTER CONCLUSIONS Normal left ventricular size. Wall thickness is normal. The left ventricular systolic function is normal with an estimated ejection fraction in the range of 60-65%. Aortic valve sclerosis is present. There is trace tricuspid valve regurgitation. The estimated pulmonary arterial pressure is 24mmHg. BP: / HR: Rhythm: MEASUREMENTS (Male / Female) Normal Values Technical Quality: 2D ECHO LV Diastolic Diameter PLAX 4.3 cm 4.2 - 5.9 / 3.9 - 5.3 cm LV Systolic Diameter PLAX 3.3 cm IVS Diastolic Thickness 1.1 cm 0.6 - 1.0 / 0.6 - 0.9 cm LVPW Diastolic Thickness 0.8 cm 0.6 - 1.0 / 0.6 - 0.9 cm LV Relative Wall Thickness 0.4 RV Internal Dim ED PLAX 2.4 cm DOPPLER AV Peak Velocity 168.0 cm/s AV Peak Gradient 11.3 mmHg LVOT Peak Velocity 135.0 cm/s LVOT Peak Gradient 7.3 mmHg Mitral E Point Velocity 82.7 cm/s TR Peak Velocity 220.0 cm/s TR Peak Gradient 19.4 mmHg FINDINGS LEFT VENTRICLE Normal left ventricular size. Wall thickness is normal. The left ventricular systolic function is normal with an estimated ejection fraction in the range of 60-65%. RIGHT VENTRICLE Normal right ventricular size and systolic function. LEFT ATRIUM The left atrial size is normal. RIGHT ATRIUM The right atrial size is normal. ATRIAL SEPTUM Normal atrial septal thickness without atrial level shunting by limited color doppler interrogation. AORTA The aortic root and proximal ascending aorta are normal in size on limited imaging. MITRAL VALVE Structurally normal mitral valve. No mitral valve stenosis or regurgitation. AORTIC VALVE Aortic valve sclerosis is present. TRICUSPID VALVE There is trace tricuspid valve regurgitation. The estimated pulmonary arterial pressure is 24mmHg. PULMONARY VALVE The pulmonary valve is not well visualized. VESSELS The inferior vena cava is normal in size. PERICARDIUM No pericardial effusion. Jovana Montero MD, FACC (Electronically Signed) Final Date:08 January 2018 17:01
[2018-01-08] MEDS: Enoxaparin Inj 40 MG/0.4 ML Syringe SQ SCH (17:48)
--- NOTE | 2018-01-08 17:49 | P.PNID ---
Subjective Remarks: ID Xcover for Dr Borges chart was reviewed is a 72 y/o CM with no significant past medical history who was admitted for new onset seizures No prior history of stroke No prior history of seizures No fever chills or night sweats prior to admission. No change in appetite or loss of weight recently. No recent surgeries or any dental procedures. ileana RN Overnight events reviewed. no fevers no rash No diarrhea Awake but still confused. Oriented x 1-2, MS fluctuates nduring the day, but no seizures Antibiotics: Acyclovir IV Vanco IV Lines: Lines ok Past Medical History: reviewed Allergies/Adverse Reactions: Allergies No Known Allergies Allergy (Verified 01/03/18 10:11) Objective Vital Signs 01/07/18 18:00 01/07/18 18:01 01/07/18 18:21 Temperature Pulse Rate 102 H Respiratory Rate 22 Blood Pressure 188/102 H 141/66 H Pulse Oximetry 91 L 91 L 91 L 01/07/18 18:30 01/07/18 19:00 01/07/18 19:01 Temperature Pulse Rate 116 H 122 H 132 H Respiratory Rate 23 22 22 Blood Pressure 129/62 142/93 H Pulse Oximetry 90 L 94 L 94 L 01/07/18 19:30 01/07/18 20:00 01/07/18 20:30 Temperature 99.3 F Pulse Rate 131 H 84 81 Respiratory Rate 23 23 24 Blood Pressure 142/63 H 130/69 122/72 Pulse Oximetry 88 L 91 L 92 L 01/07/18 21:00 01/07/18 21:30 01/07/18 22:00 Temperature Pulse Rate 80 78 72 Respiratory Rate 21 19 21 Blood Pressure 117/63 110/63 118/65 Pulse Oximetry 90 L 92 L 92 L 01/07/18 22:30 01/07/18 23:00 01/07/18 23:30 Temperature Pulse Rate 72 70 100 H Respiratory Rate 21 21 27 H Blood Pressure 120/65 117/67 122/71 Pulse Oximetry 93 L 93 L 94 L 01/08/18 00:00 01/08/18 00:30 01/08/18 01:00 Temperature 99.4 F Pulse Rate 101 H 104 H 102 H Respiratory Rate 21 22 21 Blood Pressure 132/71 130/70 132/86 Pulse Oximetry 92 L 92 L 91 L 01/08/18 01:30 01/08/18 02:00 01/08/18 02:30 Temperature Pulse Rate 100 H 104 H 105 H Respiratory Rate 21 22 23 Blood Pressure 130/85 134/76 151/85 H Pulse Oximetry 92 L 90 L 93 L 01/08/18 03:00 01/08/18 04:00 01/08/18 04:12 Temperature 98.9 F Pulse Rate 80 71 Respiratory Rate 23 21 Blood Pressure 163/75 H 134/68 Pulse Oximetry 95 95 95 01/08/18 07:00 01/08/18 07:30 01/08/18 08:00 Temperature 98.9 F Pulse Rate 77 80 79 Respiratory Rate 22 24 Blood Pressure 156/77 H 160/80 H Pulse Oximetry 01/08/18 08:31 01/08/18 08:37 01/08/18 09:00 Temperature Pulse Rate 105 H Respiratory Rate 20 19 24 Blood Pressure 133/59 L 159/95 H Pulse Oximetry 100 100 100 01/08/18 09:30 01/08/18 09:40 01/08/18 10:00 Temperature Pulse Rate 93 H 98 H Respiratory Rate 20 19 Blood Pressure 164/91 H 147/86 H Pulse Oximetry 100 97 98 01/08/18 10:30 01/08/18 11:00 01/08/18 11:31 Temperature Pulse Rate 96 H 100 H 106 H Respiratory Rate 19 24 Blood Pressure 152/97 H 165/104 H 166/73 H Pulse Oximetry 96 94 L 98 01/08/18 12:00 01/08/18 13:00 01/08/18 14:00 Temperature 98.8 F Pulse Rate 97 H 99 H 106 H Respiratory Rate 21 21 Blood Pressure 155/88 H 144/88 H Pulse Oximetry 100 100 91 L 01/08/18 14:01 01/08/18 15:00 Temperature Pulse Rate 106 H 110 H Respiratory Rate 21 Blood Pressure 165/85 H 164/79 H Pulse Oximetry 92 L Intake & Output 01/07/18 01/08/18 01/08/18 18:59 06:59 18:59 Intake Total 1550 / 1550 902 / 902 521 / 521 Output Total 475 / 475 Balance 1075 / 1075 902 / 902 521 / 521 Weight 115.9 kg Intake: IV 350 / 350 542 / 542 521 / 521 Zovirax Inj 1,050 MG In NS Inj 342 / 342 171 / 171 150 ML @ 171 mls/hr IV.SIG Q8H [facility] Rx#:[id number] Diflucan 200 mg Premix Bag 100 100 / 100 ML @ 100 mls/hr IV.SIG Q24H [facility] Rx#:[id number] Vancomycin Inj 1,000 MG In NS 250 / 250 250 / 250 Inj 250 ML @ 250 mls/hr IV.SIG Q24H [facility] Rx#:[id number] Rocephin Inj 2,000 MG In NS Inj 100 / 100 100 / 100 100 / 100 100 ML @ 200 mls/hr IV.SIG Q12H [facility] Rx#:[id number] Oral 1200 / 1200 360 / 360 Output: Urine 475 / 475 Other: # Incontinent Voids 2 3 Date of Last Bowel Movement 01/04/18 01/04/18 01/08/18 # Bowel Movements 0 # Incontinent Bowel Movements 1 1 01/06/18 15:10 Cerebral Spinal Fluid - Lumbar Puncture Acid Fast Bacilli Smear - Final No acid fast bacilli seen 01/06/18 15:10 Cerebral Spinal Fluid - Lumbar Puncture Mycobacterial Culture - Pending 01/04/18 23:53 Blood - Peripheral Aerobic Blood Culture - Preliminary No growth in 3 days 01/04/18 23:53 Blood - Peripheral Anaerobic Blood Culture - Preliminary No growth in 3 days 01/04/18 23:58 Blood - Peripheral Aerobic Blood Culture - Preliminary No growth in 3 days 01/04/18 23:58 Blood - Peripheral Anaerobic Blood Culture - Preliminary No growth in 3 days 01/06/18 15:10 Lumbar Puncture Gram Stain - Final 01/06/18 15:10 Lumbar Puncture CSF Culture - Preliminary No growth in 48 hours 01/05/18 00:45 Catheterized Urine Urine Culture - Final No growth in 48 hours 01/06/18 13:20 Blood - Peripheral Blood Fungal Culture - Pending 01/06/18 13:20 Blood - Peripheral Blood Fungal Culture - Pending 01/05/18 23:00 Nasal Wash Influenza Types A,B Antigen - Final Negative for FLU A and B antigen Infection due to influenza A or B cannot be ruled out since the antigen present in the sample may be below the detection limit of the test. Lab - Chemistry Results 01/03/18 01/06/18 01/08/18 21:04 20:31 06:43 Sodium 153 H Potassium 3.7 D 3.4 L Chloride 113 H Carbon Dioxide 31.9 Anion Gap 8 BUN 24 H Creatinine 0.77 Estimated GFR Greater than 89 Random Glucose 108 H Calcium 8.4 L Free PSA 0.4 Total PSA 0.9 PSA Free/Total Ratio 0 Ascorbic Acid 0.8000 Imaging: ITS Impressions Head CT 01/03/18 10:11 CONCLUSION: No acute intracranial abnormality is identified. . Abdomen X-Ray 01/04/18 00:00 CONCLUSION: Surgical clips in the upper abdomen. Bowel gas pattern within normal limits. Chest X-Ray 01/04/18 22:32 CONCLUSION: No significant change Chest CTA 01/05/18 00:00 CONCLUSION: 1. No pulmonary embolus. 2. Small bilateral pleural effusions. Dependent/compressive appearing atelectasis of both lower lobes. 3. Patchy nonspecific parenchymal opacities of both lungs. There is a 3.1 cm nodular area of the right lower lobe, nonspecific but most likely infectious or inflammatory, possibly a vascular malformation. Comparison to any previous outside facility chest CTs would be helpful. Three-month follow-up noncontrast chest CT is recommended if there are no priors. 4. Coronary artery calcification. Head MRI 01/05/18 00:00 CONCLUSION: 1. Negative MR Brain non contrast. 2. No evidence of acute infarct, hemorrhage, mass or edema. Lumbar Puncture Fluoroscopy 01/06/18 00:00 CONCLUSION: 1. Uncomplicated fluoroscopically guided lumbar puncture. Physical Exam: GENERAL: Poorly kempt, obese well-developed, not in acute distress SKIN: Cool and dry, no generalized rash HEAD: Atraumatic. Normocephalic. No temporal or scalp tenderness. EYES: Pupils equal round and reactive. Scleral icterus. No injection or drainage. No petechia ENT: Nothing abnormal detected. NECK: Trachea midline. Supple, nontender, no meningeal signs. CARDIOVASCULAR: HS audible. RESPIRATORY: Clear to auscultation bilaterally. GASTROINTESTINAL: Abdomen soft nontender. MUSCULOSKELETAL: Extremities without clubbing, cyanosis. NEUROLOGICAL: Alert oriented 2. Nonfocal. Psych cooperative IV line sites ok Assessment and Plan - Plan Sepsis Fever with altered mental status rule out meningoencephalitis Aspiration pneumonia or community-acquired pneumonia. High risk for aspiration. Acute metabolic encephalopathy sepsis rule out encephalitis HSV negative Acute renal failure now resolved creatinine improved Recommendations dc Acyclovir IV (pending CSF HSV 1/2 PCR) CSF studies WBC 7, total protein 103. ? post seizure vs pathological. - probably post ictal changes will dc Ceftriaxone IV tomorrow if CSF clx remains negative - final Follow cultures Follow clinical course.
--- NOTE | 2018-01-08 23:32 | P.PNCA ---
Subjective Interval history: Confusion waxes and wanes Somewhat oriented No complaints Heart rates controlled Medications and Allergies Active Medications: Active Medications Acetaminophen (Tylenol) 650 mg PO Q6H PRN PRN Reason: PAIN 1-10 AND/OR FEVER >101F Albuterol (Duoneb Neb (Prn)) 1 ampul NEB Q2HR NEB PRN PRN Reason: SHORTNESS OF BREATH/WHEEZING Enoxaparin Sodium (Lovenox Inj) 40 mg SQ Q24H [facility] Last Admin: 01/08/18 17:48 Dose: 40 mg Famotidine (Pepcid Pf Inj) 20 mg IV.PUSH Q12HR [facility] Last Admin: 01/08/18 21:39 Dose: 20 mg Famotidine (Pepcid) 20 mg PO BID [facility] Last Admin: 01/08/18 21:39 Dose: Not Given Ceftriaxone Sodium 2,000 mg/ (Sodium Chloride) 100 mls @ 200 mls/hr IV.SIG Q12H [facility] Last Infusion: 01/08/18 15:00 Dose: Infused Lorazepam (Ativan Inj) 2 mg IV.PUSH Q4H PRN PRN Reason: Agitation/sedation Last Admin: 01/05/18 13:00 Dose: 2 mg Lorazepam (Ativan Inj) 2 mg IV.PUSH ONCE PRN PRN Reason: SEIZURES Metoprolol Tartrate (Lopressor) 25 mg PO BID [facility] Last Admin: 01/08/18 21:39 Dose: 25 mg Ondansetron HCl (Zofran Inj) 4 mg IV.PUSH Q6H PRN PRN Reason: NAUSEA OR VOMITING Sennosides (Senokot) 17.2 mg PO Q12H PRN PRN Reason: Moderate Constipation Sodium Chloride (Ns Flush) 2 ml IV.FLUSH BID [facility] Last Admin: 01/08/18 21:39 Dose: 2 ml Sodium Chloride (Ns Flush) 2 ml IV.FLUSH UNSCH PRN PRN Reason: FLUSH AFTER USING IV ACCESS Allergies Allergy/AdvReac Type Severity Reaction Status Date / Time No Known Allergies Allergy Verified 01/03/18 10:11 Home Medications Medication Instructions Recorded Confirmed Type Unable to Obtain Home Meds 01/03/18 01/03/18 History Physical Exam Vital signs: Vital Signs 01/07/18 23:30 01/08/18 00:00 01/08/18 00:30 Temperature 99.4 F Pulse Rate 100 H 101 H 104 H Respiratory Rate 27 H 21 22 Blood Pressure 122/71 132/71 130/70 Pulse Oximetry 94 L 92 L 92 L 01/08/18 01:00 01/08/18 01:30 01/08/18 02:00 Temperature Pulse Rate 102 H 100 H 104 H Respiratory Rate 21 21 22 Blood Pressure 132/86 130/85 134/76 Pulse Oximetry 91 L 92 L 90 L 01/08/18 02:30 01/08/18 03:00 01/08/18 04:00 Temperature 98.9 F Pulse Rate 105 H 80 71 Respiratory Rate 23 23 21 Blood Pressure 151/85 H 163/75 H 134/68 Pulse Oximetry 93 L 95 95 01/08/18 04:12 01/08/18 07:00 01/08/18 07:30 Temperature 98.9 F Pulse Rate 77 80 Respiratory Rate 22 Blood Pressure 156/77 H 160/80 H Pulse Oximetry 95 01/08/18 08:00 01/08/18 08:31 01/08/18 08:37 Temperature Pulse Rate 79 105 H Respiratory Rate 24 20 19 Blood Pressure 133/59 L Pulse Oximetry 100 100 01/08/18 09:00 01/08/18 09:30 01/08/18 09:40 Temperature Pulse Rate 93 H Respiratory Rate 24 20 Blood Pressure 159/95 H 164/91 H Pulse Oximetry 100 100 97 01/08/18 10:00 01/08/18 10:30 01/08/18 11:00 Temperature Pulse Rate 98 H 96 H 100 H Respiratory Rate 19 19 24 Blood Pressure 147/86 H 152/97 H 165/104 H Pulse Oximetry 98 96 94 L 01/08/18 11:31 01/08/18 12:00 01/08/18 13:00 Temperature 98.8 F Pulse Rate 106 H 97 H 99 H Respiratory Rate 21 21 Blood Pressure 166/73 H 155/88 H 144/88 H Pulse Oximetry 98 100 100 01/08/18 14:00 01/08/18 14:01 01/08/18 15:00 Temperature Pulse Rate 106 H 106 H 110 H Respiratory Rate 21 Blood Pressure 165/85 H 164/79 H Pulse Oximetry 91 L 92 L 01/08/18 16:00 01/08/18 17:00 01/08/18 18:00 Temperature 97.6 F Pulse Rate 103 H 74 83 Respiratory Rate 22 23 25 H Blood Pressure 146/75 H 157/85 H Pulse Oximetry 01/08/18 18:01 01/08/18 19:00 01/08/18 19:01 Temperature Pulse Rate 86 94 H 82 Respiratory Rate 35 H 40 H 13 Blood Pressure 154/96 H 170/131 H Pulse Oximetry 01/08/18 19:26 01/08/18 20:00 01/08/18 21:00 Temperature 98.7 F Pulse Rate 75 72 97 H Respiratory Rate 21 13 13 Blood Pressure 132/71 144/75 H 152/95 H Pulse Oximetry 92 L 91 L 93 L Intake & Output 01/08/18 01/08/18 01/09/18 06:59 18:59 06:59 Intake Total 902 / 902 521 / 521 500 / 500 Balance 902 / 902 521 / 521 500 / 500 Weight 115.9 kg Intake: IV 542 / 542 521 / 521 500 / 500 Zovirax Inj 1,050 MG In NS Inj 342 / 342 171 / 171 150 ML @ 171 mls/hr IV.SIG Q8H [facility] Rx#:[id number] Diflucan 200 mg Premix Bag 100 100 / 100 ML @ 100 mls/hr IV.SIG Q24H [facility] Rx#:[id number] 1/2 Normal Saline Inj 500 ML @ 500 / 500 60 mls/hr IV.SIG BOLUS ONE Rx#: [id number] Vancomycin Inj 1,000 MG In NS 250 / 250 Inj 250 ML @ 250 mls/hr IV.SIG Q24H [facility] Rx#:[id number] Rocephin Inj 2,000 MG In NS Inj 100 / 100 100 / 100 100 ML @ 200 mls/hr IV.SIG Q12H [facility] Rx#:[id number] Oral 360 / 360 Other: # Voids 3 # Incontinent Voids 3 Date of Last Bowel Movement 01/04/18 01/08/18 01/08/18 # Bowel Movements 2 # Incontinent Bowel Movements 1 1 Narrative: GENERAL: Alert and oriented x2, well-nourished well-developed, not in acute distress SKIN: Cool and dry, no generalized rash HEAD: Atraumatic. Normocephalic. No temporal or scalp tenderness. EYES: Pupils equal round and reactive. Scleral icterus. No injection or drainage. No petechia ENT: Nothing abnormal detected. NECK: Trachea midline. Supple, nontender, no meningeal signs. CARDIOVASCULAR: Irregularly irregular RESPIRATORY: Clear to auscultation bilaterally. GASTROINTESTINAL: Abdomen soft nontender. MUSCULOSKELETAL: Extremities without clubbing, cyanosis. NEUROLOGICAL: Alert oriented 2. Nonfocal. Psych cooperative, mostly oriented today, only residual delirium Results 01/06/18 04:00 01/08/18 06:43 Comprehensive Metabolic Panel 01/08/18 Range/Units 06:43 Sodium 153 H (136-145) meq/L Potassium 3.4 L (3.5-5.1) meq/L Chloride 113 H (98-107) meq/L Carbon Dioxide 31.9 (21.0-32.0) meq/L BUN 24 H (7-18) mg/dL Creatinine 0.77 (0.60-1.30) mg/dL Calcium 8.4 L (8.5-10.1) mg/dL Intake and Output 01/08/18 01/08/18 01/09/18 14:59 22:59 06:59 Intake Total 1021 / 1021 Balance 1021 / 1021 Intake: IV 1021 / 1021 Zovirax Inj 1,050 MG In NS Inj 171 / 171 150 ML @ 171 mls/hr IV.SIG Q8H [facility] Rx#:[id number] 1/2 Normal Saline Inj 500 ML @ 500 / 500 60 mls/hr IV.SIG BOLUS ONE Rx#: [id number] Vancomycin Inj 1,000 MG In NS 250 / 250 Inj 250 ML @ 250 mls/hr IV.SIG Q24H [facility] Rx#:[id number] Rocephin Inj 2,000 MG In NS Inj 100 / 100 100 ML @ 200 mls/hr IV.SIG Q12H [facility] Rx#:[id number] Other: # Voids 3 Date of Last Bowel Movement 01/08/18 01/08/18 # Bowel Movements 2 # Incontinent Bowel Movements 1 Assessment and Plan - Assessment (1) Afib Code(s): I48.91 - Unspecified atrial fibrillation Status: Acute (2) New onset seizure Code(s): R56.9 - Unspecified convulsions Status: Acute (3) Recurrent fever Code(s): A68.9 - Relapsing fever, unspecified Status: Acute (4) Respiratory distress Code(s): R06.03 - Acute respiratory distress Status: Acute (5) Metabolic encephalopathy Code(s): G93.41 - Metabolic encephalopathy Status: Acute (6) Shortness of breath Code(s): R06.02 - Shortness of breath Status: Acute - Plan 1) Fever 2) New onset seizure Per neurology 3) New onset Afib In and out of paroxysmal Afib Will add Metoprolol to try to help control rates when in AFib Not an anticoagulation candidate due to seizures and unknown ability to take and gait status 4) EF 60-65% 5) Hypernatremia
[2018-01-09] MEDS ORDERED: hydrALAZINE HCl Inj 20 MG/ML Vial IV.PUSH ONE (01:20)
[2018-01-09 06:16] LABS: Anion Gap 8 meq/L (5-15); Blood Urea Nitrogen 20 mg/dL (7-18); Calcium 8.7 mg/dL (8.5-10.1); Carbon Dioxide 30.4 meq/L (21.0-32.0); Chloride 114 meq/L (98-107); Glomerular Filtration Rate Greater Than 89 mL/min (>89); Glucose,Random 115 mg/dL (74-106); Potassium 3.2 meq/L (3.5-5.1); Sodium 152 meq/L (136-145)
[2018-01-09] MEDS ORDERED: hydrALAZINE HCl Inj 20 MG/ML Vial IV.PUSH PRN (06:45)
--- NOTE | 2018-01-09 07:54 | P.PNIM ---
Subjective Interval history: f/u; encephalopathy in no acute distress. awake but confused and currently on restraints. afebrile. BP trend noted. d/w the RN. Physical Exam Vital signs: Vital Signs 01/08/18 08:00 01/08/18 08:31 01/08/18 08:37 Temperature Pulse Rate 79 105 H Respiratory Rate 24 20 19 Blood Pressure 133/59 L Pulse Oximetry 100 100 01/08/18 09:00 01/08/18 09:30 01/08/18 09:40 Temperature Pulse Rate 93 H Respiratory Rate 24 20 Blood Pressure 159/95 H 164/91 H Pulse Oximetry 100 100 97 01/08/18 10:00 01/08/18 10:30 01/08/18 11:00 Temperature Pulse Rate 98 H 96 H 100 H Respiratory Rate 19 19 24 Blood Pressure 147/86 H 152/97 H 165/104 H Pulse Oximetry 98 96 94 L 01/08/18 11:31 01/08/18 12:00 01/08/18 13:00 Temperature 98.8 F Pulse Rate 106 H 97 H 99 H Respiratory Rate 21 21 Blood Pressure 166/73 H 155/88 H 144/88 H Pulse Oximetry 98 100 100 01/08/18 14:00 01/08/18 14:01 01/08/18 15:00 Temperature Pulse Rate 106 H 106 H 110 H Respiratory Rate 21 Blood Pressure 165/85 H 164/79 H Pulse Oximetry 91 L 92 L 01/08/18 16:00 01/08/18 17:00 01/08/18 18:00 Temperature 97.6 F Pulse Rate 103 H 74 83 Respiratory Rate 22 23 25 H Blood Pressure 146/75 H 157/85 H Pulse Oximetry 01/08/18 18:01 01/08/18 19:00 01/08/18 19:01 Temperature Pulse Rate 86 94 H 82 Respiratory Rate 35 H 40 H 13 Blood Pressure 154/96 H 170/131 H Pulse Oximetry 01/08/18 19:26 01/08/18 20:00 01/08/18 21:00 Temperature 98.7 F Pulse Rate 75 72 97 H Respiratory Rate 21 13 13 Blood Pressure 132/71 144/75 H 152/95 H Pulse Oximetry 92 L 91 L 93 L 01/08/18 22:00 01/08/18 23:00 01/08/18 23:14 Temperature Pulse Rate 93 H 103 H 98 H Respiratory Rate 11 L 22 22 Blood Pressure 146/98 H 168/107 H 171/113 H Pulse Oximetry 93 L 92 L 96 01/08/18 23:24 01/08/18 23:31 01/09/18 00:00 Temperature 98.9 F Pulse Rate 97 H 96 H 69 Respiratory Rate 20 21 18 Blood Pressure 177/114 H 174/111 H 175/100 H Pulse Oximetry 97 92 L 01/09/18 00:28 01/09/18 01:00 01/09/18 01:01 Temperature Pulse Rate 66 72 82 Respiratory Rate 16 19 27 H Blood Pressure 147/67 H 193/115 H Pulse Oximetry 93 L 91 L 92 L 01/09/18 01:03 01/09/18 01:40 01/09/18 02:00 Temperature Pulse Rate 90 78 91 H Respiratory Rate 22 18 17 Blood Pressure 194/101 H 189/127 H Pulse Oximetry 92 L 92 L 91 L 01/09/18 02:01 01/09/18 03:00 01/09/18 03:02 Temperature Pulse Rate 93 H 100 H 90 Respiratory Rate 15 20 17 Blood Pressure 164/84 H 166/77 H Pulse Oximetry 91 L 91 L 92 L 01/09/18 04:00 01/09/18 04:01 01/09/18 05:00 Temperature 98.8 F Pulse Rate 100 H 96 H 100 H Respiratory Rate 17 16 18 Blood Pressure 171/77 H 157/83 H Pulse Oximetry 92 L 92 L 92 L Intake & Output 01/08/18 01/09/18 01/09/18 18:59 06:59 18:59 Intake Total 521 / 521 840 / 840 Balance 521 / 521 840 / 840 Weight 114.7 kg Intake: IV 521 / 521 600 / 600 Zovirax Inj 1,050 MG In NS Inj 171 / 171 150 ML @ 171 mls/hr IV.SIG Q8H [facility] Rx#:[id number] 1/2 Normal Saline Inj 500 ML @ 500 / 500 60 mls/hr IV.SIG BOLUS ONE Rx#: [id number] Vancomycin Inj 1,000 MG In NS 250 / 250 Inj 250 ML @ 250 mls/hr IV.SIG Q24H [facility] Rx#:[id number] Rocephin Inj 2,000 MG In NS Inj 100 / 100 100 / 100 100 ML @ 200 mls/hr IV.SIG Q12H [facility] Rx#:[id number] Oral 240 / 240 Other: # Voids 3 # Incontinent Voids 4 Date of Last Bowel Movement 01/08/18 01/09/18 # Bowel Movements 2 # Incontinent Bowel Movements 1 2 - Constitutional no acute distress - Routine Respiratory Exam Present: CTA bilaterally - Routine Cardiovascular Exam Present: RRR - Routine Abdominal Exam Present: soft - Routine Extremities Exam Comments: no pedal edema. - Routine Neurological Exam Present: alert (awake but confused.) Results - Labs CBC & Chem 7: 01/06/18 04:00 01/09/18 05:31 Laboratory Results - last 24 hr 01/06/18 01/06/18 01/08/18 15:10 15:10 06:43 Sodium 153 H Potassium 3.4 L Chloride 113 H Carbon Dioxide 31.9 Anion Gap 8 BUN 24 H Creatinine 0.77 Estimated GFR Greater than 89 Random Glucose 108 H Calcium 8.4 L CSF Treponema Ab (FTA) Non-reactive CSF Herpes I DNA (PCR) Negative CSF Herpes II DNA (PCR) Negative 01/09/18 05:31 Sodium 152 H Potassium 3.2 L Chloride 114 H Carbon Dioxide 30.4 Anion Gap 8 BUN 20 H Creatinine 0.80 Estimated GFR Greater than 89 Random Glucose 115 H Calcium 8.7 CSF Treponema Ab (FTA) CSF Herpes I DNA (PCR) CSF Herpes II DNA (PCR) Microbiology 01/06/18 15:10 Cerebral Spinal Fluid - Lumbar Puncture Acid Fast Bacilli Smear - Final No acid fast bacilli seen 01/04/18 23:53 Blood - Peripheral Aerobic Blood Culture - Preliminary No growth in 3 days 01/04/18 23:53 Blood - Peripheral Anaerobic Blood Culture - Preliminary No growth in 3 days 01/04/18 23:58 Blood - Peripheral Aerobic Blood Culture - Preliminary No growth in 3 days 01/04/18 23:58 Blood - Peripheral Anaerobic Blood Culture - Preliminary No growth in 3 days 01/06/18 15:10 Lumbar Puncture Gram Stain - Final 01/06/18 15:10 Lumbar Puncture CSF Culture - Preliminary No growth in 48 hours - Procedures LP Assessment and Plan - Plan New onset seizures Metabolic Encephalopathy MRI elroy negative/ EEG normal Etiology is unclear, he 72 years old and this is his first occurrence with seizures Consider sleep deprivation, molding home, pesticides from 20 tomatoes per week, or other Vitamin B12, vitamin D are at acceptable levels, magnesium was within normal limits, TSH was normal RPR, hepatitis, HIV are all nonreactive Patient is alert and oriented x2 today, thus far cooperative with staff after removal of one restraint on wrist Appreciate neurology consult Fever s/p LP; fluid culture and blood cultures negative CSF Herpes PCR negative Acyclovir was dc'ed- will likely dc IV Rocephin today; awaiting ID f/u and recommendations. Appreciate Infectious Disease consult Hypernatremia Hypokalemia start on D5W will monitor the sodium level replace potassium and monitor A-fib with RVR Hypertension echo with EF55% will increase Metoprolol continue to monitor the HR and BP not a candidate for anticoagulation per cardiology cardiology consult appreciated. DVT prophylaxis subq Lovenox consult PT. palliative care following. transfer to telemetry within the next 24 hrs if stable. d/w the RN.
[2018-01-09] MEDS: Famotidine 20 MG Tablet PO SCH ×2 (08:31→20:33)
[2018-01-09] MEDS: Metoprolol Tartrate 50 MG Tablet PO SCH ×2 (08:31→20:32)
[2018-01-09] MEDS: Famotidine PF Inj 20 MG/2 ML Vial IV.PUSH SCH ×2 (08:33→20:33)
[2018-01-09] MEDS: Dextrose 5% in Water Inj 1,000 ML IV.CONT SCH ×2 (08:33→20:32)
[2018-01-09] MEDS: Enoxaparin Inj 40 MG/0.4 ML Syringe SQ SCH (17:06)
--- NOTE | 2018-01-09 23:02 | P.PNCA ---
Subjective Interval history: No complaints Less confused Medications and Allergies Active Medications: Active Medications Acetaminophen (Tylenol) 650 mg PO Q6H PRN PRN Reason: PAIN 1-10 AND/OR FEVER >101F Albuterol (Duoneb Neb (Prn)) 1 ampul NEB Q2HR NEB PRN PRN Reason: SHORTNESS OF BREATH/WHEEZING Enoxaparin Sodium (Lovenox Inj) 40 mg SQ Q24H [facility] Last Admin: 01/09/18 17:06 Dose: 40 mg Famotidine (Pepcid Pf Inj) 20 mg IV.PUSH Q12HR [facility] Last Admin: 01/09/18 20:33 Dose: Not Given Famotidine (Pepcid) 20 mg PO BID [facility] Last Admin: 01/09/18 20:33 Dose: 20 mg Hydralazine HCl (Apresoline Inj) 20 mg IV.PUSH Q4H PRN PRN Reason: SBP>160, DBP>90 Ceftriaxone Sodium 2,000 mg/ (Sodium Chloride) 100 mls @ 200 mls/hr IV.SIG Q12H [facility] Last Admin: 01/09/18 13:51 Dose: 200 mls/hr Dextrose (D5w Inj) 1,000 mls @ 84 mls/hr IV.CONT .[id number] [facility] Last Admin: 01/09/18 20:32 Dose: 84 mls/hr Lorazepam (Ativan Inj) 2 mg IV.PUSH Q4H PRN PRN Reason: Agitation/sedation Last Admin: 01/05/18 13:00 Dose: 2 mg Lorazepam (Ativan Inj) 2 mg IV.PUSH ONCE PRN PRN Reason: SEIZURES Metoprolol Tartrate (Lopressor) 50 mg PO BID [facility] Last Admin: 01/09/18 20:32 Dose: 50 mg Ondansetron HCl (Zofran Inj) 4 mg IV.PUSH Q6H PRN PRN Reason: NAUSEA OR VOMITING Sennosides (Senokot) 17.2 mg PO Q12H PRN PRN Reason: Moderate Constipation Sodium Chloride (Ns Flush) 2 ml IV.FLUSH BID [facility] Last Admin: 01/09/18 20:32 Dose: 2 ml Sodium Chloride (Ns Flush) 2 ml IV.FLUSH UNSCH PRN PRN Reason: FLUSH AFTER USING IV ACCESS Allergies Allergy/AdvReac Type Severity Reaction Status Date / Time No Known Allergies Allergy Verified 01/03/18 10:11 Home Medications Medication Instructions Recorded Confirmed Type Unable to Obtain Home Meds 01/03/18 01/03/18 History Physical Exam Vital signs: Vital Signs 01/08/18 23:14 01/08/18 23:24 01/08/18 23:31 Temperature Pulse Rate 98 H 97 H 96 H Respiratory Rate 22 20 21 Blood Pressure 171/113 H 177/114 H 174/111 H Pulse Oximetry 96 97 01/09/18 00:00 01/09/18 00:28 01/09/18 01:00 Temperature 98.9 F Pulse Rate 69 66 72 Respiratory Rate 18 16 19 Blood Pressure 175/100 H 147/67 H Pulse Oximetry 92 L 93 L 91 L 01/09/18 01:01 01/09/18 01:03 01/09/18 01:40 Temperature Pulse Rate 82 90 78 Respiratory Rate 27 H 22 18 Blood Pressure 193/115 H 194/101 H 189/127 H Pulse Oximetry 92 L 92 L 92 L 01/09/18 02:00 01/09/18 02:01 01/09/18 03:00 Temperature Pulse Rate 91 H 93 H 100 H Respiratory Rate 17 15 20 Blood Pressure 164/84 H Pulse Oximetry 91 L 91 L 91 L 01/09/18 03:02 01/09/18 04:00 01/09/18 04:01 Temperature 98.8 F Pulse Rate 90 100 H 96 H Respiratory Rate 17 17 16 Blood Pressure 166/77 H 171/77 H Pulse Oximetry 92 L 92 L 92 L 01/09/18 05:00 01/09/18 06:00 01/09/18 06:11 Temperature Pulse Rate 100 H 103 H 103 H Respiratory Rate 18 15 14 Blood Pressure 157/83 H 162/110 H 185/89 H Pulse Oximetry 92 L 93 L 01/09/18 06:30 01/09/18 07:00 01/09/18 07:01 Temperature Pulse Rate 99 H 96 H 97 H Respiratory Rate 7 L 15 12 Blood Pressure 186/89 H 163/87 H Pulse Oximetry 100 94 L 94 L 01/09/18 08:00 01/09/18 08:01 01/09/18 08:56 Temperature 97.6 F Pulse Rate 100 H 100 H Respiratory Rate 11 L 19 Blood Pressure 172/97 H Pulse Oximetry 96 100 93 L 01/09/18 09:00 01/09/18 10:00 01/09/18 10:26 Temperature Pulse Rate 102 H 100 H 100 H Respiratory Rate 32 H 22 24 Blood Pressure 146/76 H Pulse Oximetry 92 L 96 98 01/09/18 11:00 01/09/18 12:00 01/09/18 13:00 Temperature 98.0 F Pulse Rate 95 H 91 H 79 Respiratory Rate 14 17 12 Blood Pressure 135/87 131/72 Pulse Oximetry 01/09/18 13:01 01/09/18 13:49 01/09/18 14:00 Temperature Pulse Rate 83 102 H 92 H Respiratory Rate 15 23 18 Blood Pressure 89/52 L 136/64 132/71 Pulse Oximetry 01/09/18 15:00 01/09/18 15:01 01/09/18 16:00 Temperature 98.5 F Pulse Rate 79 80 79 Respiratory Rate 19 23 24 Blood Pressure 124/59 L Pulse Oximetry 96 01/09/18 16:01 01/09/18 17:00 01/09/18 17:01 Temperature Pulse Rate 87 70 70 Respiratory Rate 24 11 L 9 L Blood Pressure 135/59 L 81/52 L Pulse Oximetry 97 95 95 01/09/18 17:03 01/09/18 18:00 01/09/18 19:00 Temperature Pulse Rate 71 69 82 Respiratory Rate 15 9 L 16 Blood Pressure 98/51 L 109/75 Pulse Oximetry 96 96 96 01/09/18 19:01 01/09/18 20:00 01/09/18 21:00 Temperature 98.8 F Pulse Rate 82 72 66 Respiratory Rate 15 15 0 L Blood Pressure 117/61 132/65 Pulse Oximetry 96 95 94 L 01/09/18 21:01 01/09/18 21:10 Temperature Pulse Rate 76 64 Respiratory Rate 5 L 4 L Blood Pressure 85/53 L 118/51 L Pulse Oximetry 94 L 95 Intake & Output 01/09/18 01/09/18 01/10/18 06:59 18:59 06:59 Intake Total 840 / 840 650 / 650 1000 / 1000 Output Total 300 / 300 Balance 840 / 840 350 / 350 1000 / 1000 Weight 114.7 kg Intake: IV 600 / 600 1000 / 1000 D5W Inj 1,000 ML @ 84 mls/hr IV 1000 / 1000 .CONT .[id number] [facility] Rx#:[id number] /[id number] Normal Saline Inj 500 ML @ 500 / 500 60 mls/hr IV.SIG [facility] Rx#: [id number] Rocephin Inj 2,000 MG In NS Inj 100 / 100 100 ML @ 200 mls/hr IV.SIG Q12H [facility] Rx#:[id number] Oral 240 / 240 650 / 650 Output: Urine 300 / 300 Other: # Incontinent Voids 4 2 Date of Last Bowel Movement 01/09/18 01/09/18 01/09/18 # Incontinent Bowel Movements 2 1 Narrative: GENERAL: Alert and oriented x2, well-nourished well-developed, not in acute distress SKIN: Cool and dry, no generalized rash HEAD: Atraumatic. Normocephalic. No temporal or scalp tenderness. EYES: Pupils equal round and reactive. Scleral icterus. No injection or drainage. No petechia ENT: Nothing abnormal detected. NECK: Trachea midline. Supple, nontender, no meningeal signs. CARDIOVASCULAR: Irregularly irregular RESPIRATORY: Clear to auscultation bilaterally. GASTROINTESTINAL: Abdomen soft nontender. MUSCULOSKELETAL: Extremities without clubbing, cyanosis. NEUROLOGICAL: Alert oriented 2. Nonfocal. Psych cooperative, mostly oriented today, only residual delirium Results 01/06/18 04:00 01/09/18 05:31 Comprehensive Metabolic Panel 01/08/18 01/09/18 Range/Units 06:43 05:31 Sodium 153 H 152 H (136-145) meq/L Potassium 3.4 L 3.2 L (3.5-5.1) meq/L Chloride 113 H 114 H (98-107) meq/L Carbon Dioxide 31.9 30.4 (21.0-32.0) meq/L BUN 24 H 20 H (7-18) mg/dL Creatinine 0.77 0.80 (0.60-1.30) mg/dL Calcium 8.4 L 8.7 (8.5-10.1) mg/dL Intake and Output 01/09/18 01/09/18 01/10/18 14:59 22:59 06:59 Intake Total 1650 / 1650 Output Total 300 / 300 Balance 1350 / 1350 Intake: IV 1000 / 1000 D5W Inj 1,000 ML @ 84 mls/hr IV 1000 / 1000 .CONT .[id number] [facility] Rx#:[id number] Oral 650 / 650 Output: Urine 300 / 300 Other: # Incontinent Voids 2 Date of Last Bowel Movement 01/09/18 01/09/18 # Incontinent Bowel Movements 1 Assessment and Plan - Assessment (1) Afib Code(s): I48.91 - Unspecified atrial fibrillation Status: Acute (2) New onset seizure Code(s): R56.9 - Unspecified convulsions Status: Acute (3) Recurrent fever Code(s): A68.9 - Relapsing fever, unspecified Status: Acute (4) Respiratory distress Code(s): R06.03 - Acute respiratory distress Status: Acute (5) Metabolic encephalopathy Code(s): G93.41 - Metabolic encephalopathy Status: Acute (6) Shortness of breath Code(s): R06.02 - Shortness of breath Status: Acute - Plan 1) Fever 2) New onset seizure Per neurology 3) New onset Afib In and out of paroxysmal Afib Metoprolol controlling heart rates Not an anticoagulation candidate due to seizures and unknown ability to take and gait status If he stabilizes mentally, then would reconsider 4) EF 60-65% 5) Hypernatremia
[2018-01-10 06:43] LABS: Anion Gap 6 meq/L (5-15); Blood Urea Nitrogen 16 mg/dL (7-18); Calcium 8.2 mg/dL (8.5-10.1); Carbon Dioxide 31.6 meq/L (21.0-32.0); Chloride 111 meq/L (98-107); Glomerular Filtration Rate Greater Than 89 mL/min (>89); Glucose,Random 116 mg/dL (74-106); Potassium 3.2 meq/L (3.5-5.1); Sodium 149 meq/L (136-145)
--- NOTE | 2018-01-10 07:46 | P.PNIM ---
Subjective Interval history: f/u; encephalopathy in no acute distress. mentation has much improved. denies pain. no fever/ no seizures. d/w the RN and no acute issues over night. Physical Exam Vital signs: Vital Signs 01/09/18 08:00 01/09/18 08:01 01/09/18 08:56 Temperature 97.6 F Pulse Rate 100 H 100 H Respiratory Rate 11 L 19 Blood Pressure 172/97 H Pulse Oximetry 96 100 93 L 01/09/18 09:00 01/09/18 10:00 01/09/18 10:26 Temperature Pulse Rate 102 H 100 H 100 H Respiratory Rate 32 H 22 24 Blood Pressure 146/76 H Pulse Oximetry 92 L 96 98 01/09/18 11:00 01/09/18 12:00 01/09/18 13:00 Temperature 98.0 F Pulse Rate 95 H 91 H 79 Respiratory Rate 14 17 12 Blood Pressure 135/87 131/72 Pulse Oximetry 01/09/18 13:01 01/09/18 13:49 01/09/18 14:00 Temperature Pulse Rate 83 102 H 92 H Respiratory Rate 15 23 18 Blood Pressure 89/52 L 136/64 132/71 Pulse Oximetry 01/09/18 15:00 01/09/18 15:01 01/09/18 16:00 Temperature 98.5 F Pulse Rate 79 80 79 Respiratory Rate 19 23 24 Blood Pressure 124/59 L Pulse Oximetry 96 01/09/18 16:01 01/09/18 17:00 01/09/18 17:01 Temperature Pulse Rate 87 70 70 Respiratory Rate 24 11 L 9 L Blood Pressure 135/59 L 81/52 L Pulse Oximetry 97 95 95 01/09/18 17:03 01/09/18 18:00 01/09/18 19:00 Temperature Pulse Rate 71 69 82 Respiratory Rate 15 9 L 16 Blood Pressure 98/51 L 109/75 Pulse Oximetry 96 96 96 01/09/18 19:01 01/09/18 20:00 01/09/18 21:00 Temperature 98.8 F Pulse Rate 82 72 66 Respiratory Rate 15 15 0 L Blood Pressure 117/61 132/65 Pulse Oximetry 96 95 94 L 01/09/18 21:01 01/09/18 21:10 01/09/18 22:00 Temperature Pulse Rate 76 64 75 Respiratory Rate 5 L 4 L 17 Blood Pressure 85/53 L 118/51 L 129/67 Pulse Oximetry 94 L 95 96 01/09/18 23:00 01/09/18 23:01 01/10/18 00:00 Temperature 99 F Pulse Rate 83 81 75 Respiratory Rate 23 22 12 Blood Pressure 140/89 121/67 Pulse Oximetry 96 95 96 01/10/18 01:00 01/10/18 02:00 01/10/18 02:01 Temperature Pulse Rate 67 79 77 Respiratory Rate 11 L 19 13 Blood Pressure 129/61 122/79 Pulse Oximetry 92 L 91 L 92 L 01/10/18 03:00 01/10/18 04:00 Temperature 98.3 F Pulse Rate 69 67 Respiratory Rate 16 13 Blood Pressure 138/63 105/63 Pulse Oximetry 92 L 92 L Intake & Output 01/09/18 01/10/18 01/10/18 18:59 06:59 18:59 Intake Total 750 / 750 1340 / 1340 Output Total 300 / 300 Balance 450 / 450 1340 / 1340 Weight 115.4 kg Intake: IV 100 / 100 1100 / 1100 D5W Inj 1,000 ML @ 84 mls/hr IV 1000 / 1000 .CONT .[id number] [facility] Rx#:[id number] Rocephin Inj 2,000 MG In NS Inj 100 / 100 100 / 100 100 ML @ 200 mls/hr IV.SIG Q12H [facility] Rx#:[id number] Oral 650 / 650 240 / 240 Output: Urine 300 / 300 Other: # Incontinent Voids 2 2 Date of Last Bowel Movement 01/09/18 01/10/18 # Incontinent Bowel Movements 1 1 - Constitutional no acute distress - Routine Respiratory Exam Present: CTA bilaterally - Routine Cardiovascular Exam Present: RRR - Routine Abdominal Exam Present: soft - Routine Extremities Exam Comments: no pedal edema. - Routine Neurological Exam Present: alert, oriented X3 Results - Labs CBC & Chem 7: 01/06/18 04:00 01/10/18 05:56 Laboratory Results - last 24 hr 01/06/18 01/06/18 01/10/18 15:10 15:10 05:56 Sodium 149 H Potassium 3.2 L Chloride 111 H Carbon Dioxide 31.6 Anion Gap 6 BUN 16 Creatinine 0.69 Estimated GFR Greater than 89 Random Glucose 116 H Calcium 8.2 L CSF VDRL Non-reactive CSF Cryptococcus Ag Not detected Microbiology 01/06/18 15:10 Lumbar Puncture Gram Stain - Final 01/06/18 15:10 Lumbar Puncture CSF Culture - Final No growth in 72 hours 01/04/18 23:53 Blood - Peripheral Aerobic Blood Culture - Preliminary No growth in 4 days 01/04/18 23:53 Blood - Peripheral Anaerobic Blood Culture - Preliminary No growth in 4 days 01/04/18 23:58 Blood - Peripheral Aerobic Blood Culture - Preliminary No growth in 4 days 01/04/18 23:58 Blood - Peripheral Anaerobic Blood Culture - Preliminary No growth in 4 days - Procedures LP Assessment and Plan - Plan New onset seizures Metabolic Encephalopathy- now has much improved. fever- has resolved MRI elroy negative/ EEG normal Etiology is unclear, he 72 years old and this is his first occurrence with seizures s/p LP; fluid culture and blood cultures negative CSF Herpes PCR negative Acyclovir was dc'ed- will likely dc IV Rocephin today; awaiting ID f/u and recommendations. Consider sleep deprivation, molding home, pesticides from 20 tomatoes per week, or other Vitamin B12, vitamin D are at acceptable levels, magnesium was within normal limits, TSH was normal RPR, hepatitis, HIV are all nonreactive will keep him on Keppra till f/u with neurology outpatient. Appreciate neurology consult ID following. Hypernatremia- improving. Hypokalemia continue on D5W will monitor the sodium level replace potassium and monitor A-fib with RVR- now HR controlled. Hypertension echo with EF55% continue Metoprolol continue to monitor the HR and BP not a candidate for anticoagulation per cardiology cardiology following. DVT prophylaxis subq Lovenox consulted PT. palliative care following. transfer to telemetry today. d/w the RN. Discussed Condition With: . Discharge Planning: case management will be consulted for possible rehab.
[2018-01-10] MEDS: Metoprolol Tartrate 50 MG Tablet PO SCH ×2 (08:52→21:48)
[2018-01-10] MEDS: Famotidine 20 MG Tablet PO SCH ×2 (08:53→21:47)
[2018-01-10] MEDS: Famotidine PF Inj 20 MG/2 ML Vial IV.PUSH SCH ×2 (08:53→21:49)
[2018-01-10] MEDS: Dextrose 5% in Water Inj 1,000 ML IV.CONT SCH (08:58)
[2018-01-10] MEDS: levETIRAcetam 500 MG Tablet PO SCH ×2 (11:58→21:47)
--- NOTE | 2018-01-10 12:31 | P.PNCA ---
Subjective Interval history: No events overnight Appears less confused Medications and Allergies Active Medications: Active Medications Acetaminophen (Tylenol) 650 mg PO Q6H PRN PRN Reason: PAIN 1-10 AND/OR FEVER >101F Albuterol (Duoneb Neb (Prn)) 1 ampul NEB Q2HR NEB PRN PRN Reason: SHORTNESS OF BREATH/WHEEZING Enoxaparin Sodium (Lovenox Inj) 40 mg SQ Q24H [facility] Last Admin: 01/09/18 17:06 Dose: 40 mg Famotidine (Pepcid Pf Inj) 20 mg IV.PUSH Q12HR [facility] Last Admin: 01/10/18 08:53 Dose: Not Given Famotidine (Pepcid) 20 mg PO BID [facility] Last Admin: 01/10/18 08:53 Dose: 20 mg Hydralazine HCl (Apresoline Inj) 20 mg IV.PUSH Q4H PRN PRN Reason: SBP>160, DBP>90 Ceftriaxone Sodium 2,000 mg/ (Sodium Chloride) 100 mls @ 200 mls/hr IV.SIG Q12H [facility] Last Admin: 01/10/18 12:01 Dose: 200 mls/hr Dextrose (D5w Inj) 1,000 mls @ 84 mls/hr IV.CONT .[id number] [facility] Last Admin: 01/10/18 08:58 Dose: 84 mls/hr Levetiracetam (Keppra) 500 mg PO BID [facility] Last Admin: 01/10/18 11:58 Dose: 500 mg Lorazepam (Ativan Inj) 2 mg IV.PUSH Q4H PRN PRN Reason: Agitation/sedation Last Admin: 01/05/18 13:00 Dose: 2 mg Lorazepam (Ativan Inj) 2 mg IV.PUSH ONCE PRN PRN Reason: SEIZURES Metoprolol Tartrate (Lopressor) 50 mg PO BID [facility] Last Admin: 01/10/18 08:52 Dose: 50 mg Ondansetron HCl (Zofran Inj) 4 mg IV.PUSH Q6H PRN PRN Reason: NAUSEA OR VOMITING Potassium Chloride (K-Dur) 40 meq PO Q4HR [facility] Stop: 01/10/18 18:00 Last Admin: 01/10/18 11:57 Dose: 40 meq Sennosides (Senokot) 17.2 mg PO Q12H PRN PRN Reason: Moderate Constipation Sodium Chloride (Ns Flush) 2 ml IV.FLUSH BID [facility] Last Admin: 01/10/18 08:53 Dose: 2 ml Sodium Chloride (Ns Flush) 2 ml IV.FLUSH UNSCH PRN PRN Reason: FLUSH AFTER USING IV ACCESS Allergies Allergy/AdvReac Type Severity Reaction Status Date / Time No Known Allergies Allergy Verified 01/03/18 10:11 Home Medications Medication Instructions Recorded Confirmed Type Unable to Obtain Home Meds 01/03/18 01/03/18 History Physical Exam Vital signs: Vital Signs 01/09/18 13:00 01/09/18 13:01 01/09/18 13:49 Temperature Pulse Rate 79 83 102 H Respiratory Rate 12 15 23 Blood Pressure 89/52 L 136/64 Pulse Oximetry 01/09/18 14:00 01/09/18 15:00 01/09/18 15:01 Temperature Pulse Rate 92 H 79 80 Respiratory Rate 18 19 23 Blood Pressure 132/71 124/59 L Pulse Oximetry 01/09/18 16:00 01/09/18 16:01 01/09/18 17:00 Temperature 98.5 F Pulse Rate 79 87 70 Respiratory Rate 24 24 11 L Blood Pressure 135/59 L Pulse Oximetry 96 97 95 01/09/18 17:01 01/09/18 17:03 01/09/18 18:00 Temperature Pulse Rate 70 71 69 Respiratory Rate 9 L 15 9 L Blood Pressure 81/52 L 98/51 L 109/75 Pulse Oximetry 95 96 96 01/09/18 19:00 01/09/18 19:01 01/09/18 20:00 Temperature 98.8 F Pulse Rate 82 82 72 Respiratory Rate 16 15 15 Blood Pressure 117/61 132/65 Pulse Oximetry 96 96 95 01/09/18 21:00 01/09/18 21:01 01/09/18 21:10 Temperature Pulse Rate 66 76 64 Respiratory Rate 0 L 5 L 4 L Blood Pressure 85/53 L 118/51 L Pulse Oximetry 94 L 94 L 95 01/09/18 22:00 01/09/18 23:00 01/09/18 23:01 Temperature Pulse Rate 75 83 81 Respiratory Rate 17 23 22 Blood Pressure 129/67 140/89 Pulse Oximetry 96 96 95 01/10/18 00:00 01/10/18 01:00 01/10/18 02:00 Temperature 99 F Pulse Rate 75 67 79 Respiratory Rate 12 11 L 19 Blood Pressure 121/67 129/61 Pulse Oximetry 96 92 L 91 L 01/10/18 02:01 01/10/18 03:00 01/10/18 04:00 Temperature 98.3 F Pulse Rate 77 69 67 Respiratory Rate 13 16 13 Blood Pressure 122/79 138/63 105/63 Pulse Oximetry 92 L 92 L 92 L 01/10/18 08:00 01/10/18 08:38 Temperature 98.4 F Pulse Rate 66 Respiratory Rate 16 Blood Pressure 119/79 Pulse Oximetry 94 L 97 Intake & Output 01/09/18 01/10/18 01/10/18 18:59 06:59 18:59 Intake Total 750 / 750 1340 / 1340 1000 / 1000 Output Total 300 / 300 Balance 450 / 450 1340 / 1340 1000 / 1000 Weight 115.4 kg Intake: IV 100 / 100 1100 / 1100 1000 / 1000 D5W Inj 1,000 ML @ 84 mls/hr IV 1000 / 1000 1000 / 1000 .CONT .[id number] [facility] Rx#:[id number] Rocephin Inj 2,000 MG In NS Inj 100 / 100 100 / 100 100 ML @ 200 mls/hr IV.SIG Q12H [facility] Rx#:[id number] Oral 650 / 650 240 / 240 Output: Urine 300 / 300 Other: # Incontinent Voids 2 2 Date of Last Bowel Movement 01/09/18 01/10/18 01/09/18 # Incontinent Bowel Movements 1 1 Narrative: GENERAL: Alert and oriented x2, well-nourished well-developed, not in acute distress SKIN: Cool and dry, no generalized rash HEAD: Atraumatic. Normocephalic. No temporal or scalp tenderness. EYES: Pupils equal round and reactive. Scleral icterus. No injection or drainage. No petechia ENT: Nothing abnormal detected. NECK: Trachea midline. Supple, nontender, no meningeal signs. CARDIOVASCULAR: Irregularly irregular RESPIRATORY: Clear to auscultation bilaterally. GASTROINTESTINAL: Abdomen soft nontender. MUSCULOSKELETAL: Extremities without clubbing, cyanosis. NEUROLOGICAL: Alert oriented 2. Nonfocal. Psych cooperative, mostly oriented today, only residual delirium Results 01/06/18 04:00 01/10/18 05:56 Comprehensive Metabolic Panel 01/09/18 01/10/18 Range/Units 05:31 05:56 Sodium 152 H 149 H (136-145) meq/L Potassium 3.2 L 3.2 L (3.5-5.1) meq/L Chloride 114 H 111 H (98-107) meq/L Carbon Dioxide 30.4 31.6 (21.0-32.0) meq/L BUN 20 H 16 (7-18) mg/dL Creatinine 0.80 0.69 (0.60-1.30) mg/dL Calcium 8.7 8.2 L (8.5-10.1) mg/dL Intake and Output 01/09/18 01/10/18 01/10/18 22:59 06:59 14:59 Intake Total 1650 / 1650 340 / 340 1000 / 1000 Output Total 300 / 300 Balance 1350 / 1350 340 / 340 1000 / 1000 Intake: IV 1000 / 1000 100 / 100 1000 / 1000 D5W Inj 1,000 ML @ 84 mls/hr IV 1000 / 1000 1000 / 1000 .CONT .[id number] [facility] Rx#:[id number] Rocephin Inj 2,000 MG In NS Inj 100 / 100 100 ML @ 200 mls/hr IV.SIG Q12H [facility] Rx#:[id number] Oral 650 / 650 240 / 240 Output: Urine 300 / 300 Other: # Incontinent Voids 2 2 Date of Last Bowel Movement 01/09/18 01/10/18 01/09/18 # Incontinent Bowel Movements 1 1 Weight 115.4 kg Assessment and Plan - Assessment (1) Afib Code(s): I48.91 - Unspecified atrial fibrillation Status: Acute (2) New onset seizure Code(s): R56.9 - Unspecified convulsions Status: Acute (3) Recurrent fever Code(s): A68.9 - Relapsing fever, unspecified Status: Acute (4) Respiratory distress Code(s): R06.03 - Acute respiratory distress Status: Acute (5) Metabolic encephalopathy Code(s): G93.41 - Metabolic encephalopathy Status: Acute (6) Shortness of breath Code(s): R06.02 - Shortness of breath Status: Acute - Plan 1) Fever 2) New onset seizure Per neurology 3) New onset Afib In and out of paroxysmal Afib Metoprolol controlling heart rates Not an anticoagulation candidate due to seizures and unknown ability to take and gait status If he stabilizes mentally, then would reconsider 4) EF 60-65% 5) Hypernatremia 6) If concerns over the weekend, please call the service for covering physician
[2018-01-10 16:31] VITALS: RESP 18
[2018-01-10] MEDS: Enoxaparin Inj 40 MG/0.4 ML Syringe SQ SCH (18:02)
[2018-01-11] MEDS: Dextrose 5% in Water Inj 1,000 ML IV.CONT SCH ×3 (00:10→19:36)
[2018-01-11 05:38] LABS: Baso % (Auto) 0.7 % (0.0-2.0); Eos # (Auto) 0.5 th/mm3 (0.0-0.4); Eos % (Auto) 8.2 % (0.0-4.0); Hemoglobin 14.2 gm/dL (13.0-17.0); Lymph # (Auto) 1.1 th/mm3 (1.0-4.8); Lymph % (Auto) 18.6 % (9.0-44.0); Mean Corpuscular HGB Conc 33.8 % (32.0-36.0); Mean Corpuscular Hemoglobin 30.5 pg (27.0-34.0); Mean Corpuscular Volume 90.2 fL (80.0-100.0); Mean Platelet Volume 8.9 fL (7.0-11.0); Mono # (Auto) 0.4 th/mm3 (0.0-0.9); Mono % (Auto) 7.5 % (0.0-8.0); Neut # (Auto) 3.8 th/mm3 (1.8-7.7); Platelet Count 212 th/mm3 (150-450); Red Blood Count 4.66 mil/mm3 (4.50-5.90); Red Cell Distribution Width 14.3 % (11.6-17.2); White Blood Count 5.8 th/mm3 (4.0-11.0)
[2018-01-11 05:55] LABS: Anion Gap 8 meq/L (5-15); Blood Urea Nitrogen 16 mg/dL (7-18); Calcium 8.3 mg/dL (8.5-10.1); Carbon Dioxide 28.2 meq/L (21.0-32.0); Chloride 111 meq/L (98-107); Glomerular Filtration Rate Greater Than 89 mL/min (>89); Glucose,Random 99 mg/dL (74-106); Potassium 3.6 meq/L (3.5-5.1); Sodium 147 meq/L (136-145)
[2018-01-11] MEDS ORDERED: Influenza (Quadrivalent) Vaccine 0.5 ML Syringe IM ONE (07:00)
[2018-01-11] MEDS: Metoprolol Tartrate 50 MG Tablet PO SCH ×2 (09:03→20:51)
[2018-01-11] MEDS: levETIRAcetam 500 MG Tablet PO SCH ×2 (09:03→20:51)
[2018-01-11] MEDS: Famotidine 20 MG Tablet PO SCH ×2 (09:03→20:53)
--- NOTE | 2018-01-11 10:13 | P.PNIM ---
Subjective Interval history: f/u; encephalopathy in no acute distress. awake and alert. no pain. afebrile. Physical Exam Vital signs: Vital Signs 01/10/18 12:00 01/10/18 16:00 01/10/18 17:03 Temperature 97.5 F L 98.2 F Pulse Rate 65 75 Respiratory Rate 22 18 Blood Pressure 114/66 138/64 Pulse Oximetry 96 95 96 01/10/18 19:20 01/10/18 20:57 01/10/18 22:50 Temperature 97.8 F Pulse Rate 75 76 56 L Respiratory Rate 18 Blood Pressure 109/58 L Pulse Oximetry 95 01/11/18 00:03 01/11/18 00:11 01/11/18 03:55 Temperature 97.4 F L Pulse Rate 79 78 80 Respiratory Rate 18 Blood Pressure 147/63 H Pulse Oximetry 96 01/11/18 04:50 01/11/18 08:00 Temperature 97.4 F L 97 F L Pulse Rate 94 H 86 Respiratory Rate 18 18 Blood Pressure 110/75 114/56 L Pulse Oximetry 97 97 Intake & Output 01/10/18 01/11/18 01/11/18 18:59 06:59 18:59 Intake Total 2380 / 2380 3658 / 3658 Output Total 1202 / 1202 Balance 1178 / 1178 3658 / 3658 Weight 116.5 kg Intake: IV 1100 / 1100 3178 / 3178 D5W Inj 1,000 ML @ 84 mls/hr IV 1000 / 1000 3178 / 3178 .CONT .[id number] [facility] Rx#:[id number] Rocephin Inj 2,000 MG In NS Inj 100 / 100 100 ML @ 200 mls/hr IV.SIG Q12H [facility] Rx#:[id number] Oral 1280 / 1280 480 / 480 Output: Urine 1200 / 1200 Stool 2 / 2 Other: # Voids 1 1 Date of Last Bowel Movement 01/09/18 # Bowel Movements 1 - Constitutional no acute distress - Routine Respiratory Exam Present: CTA bilaterally - Routine Cardiovascular Exam Present: RRR - Routine Abdominal Exam Present: soft - Routine Extremities Exam Comments: no pedal edema. - Routine Neurological Exam Present: alert, oriented X3 Results - Labs CBC & Chem 7: 01/11/18 04:36 01/11/18 04:36 Laboratory Results - last 24 hr 01/03/18 01/11/18 01/11/18 21:04 04:36 04:36 WBC 5.8 RBC 4.66 Hgb 14.2 Hct 42.0 MCV 90.2 MCH 30.5 MCHC 33.8 RDW 14.3 Plt Count 212 MPV 8.9 Neut % (Auto) 65.0 Lymph % (Auto) 18.6 Williamson % (Auto) 7.5 Eos % (Auto) 8.2 H Baso % (Auto) 0.7 Neut # (Auto) 3.8 Lymph # (Auto) 1.1 Williamson # (Auto) 0.4 Eos # (Auto) 0.5 H Baso # (Auto) 0.0 WBC Differential . Differential Comment Auto diff final Sodium 147 H Potassium 3.6 Chloride 111 H Carbon Dioxide 28.2 Anion Gap 8 BUN 16 Creatinine 0.81 Estimated GFR Greater than 89 Random Glucose 99 Calcium 8.3 L Magnesium 2.0 Vitamin B6 9.2 Microbiology 01/04/18 23:53 Blood - Peripheral Aerobic Blood Culture - Final No growth in 5 days 01/04/18 23:53 Blood - Peripheral Anaerobic Blood Culture - Final No growth in 5 days 01/04/18 23:58 Blood - Peripheral Aerobic Blood Culture - Final No growth in 5 days 01/04/18 23:58 Blood - Peripheral Anaerobic Blood Culture - Final No growth in 5 days - Procedures LP Assessment and Plan - Plan New onset seizures Metabolic Encephalopathy- now has much improved. fever- has resolved MRI elroy negative/ EEG normal Etiology is unclear, he 72 years old and this is his first occurrence with seizures s/p LP; fluid culture and blood cultures negative CSF Herpes PCR negative Acyclovir and Rocephin dc'ed- Consider sleep deprivation, molding home, pesticides from 20 tomatoes per week, or other Vitamin B12, vitamin D are at acceptable levels, magnesium was within normal limits, TSH was normal RPR, hepatitis, HIV are all nonreactive will keep him on Keppra till f/u with neurology outpatient. Appreciate neurology consult evaluated by ID. Hypernatremia- improving. Hypokalemia continue on D5W replace potassium and monitor A-fib with RVR- now HR controlled. Hypertension echo with EF55% continue Metoprolol continue to monitor the HR and BP not a candidate for anticoagulation per cardiology cardiology following. DVT prophylaxis subq Lovenox consulted PT. Discharge Planning: dc to rehab tomorrow if stable.
[2018-01-11] MEDS: Famotidine PF Inj 20 MG/2 ML Vial IV.PUSH SCH ×2 (11:22→20:53)
[2018-01-11] MEDS: Enoxaparin Inj 40 MG/0.4 ML Syringe SQ SCH (18:02)
[2018-01-12] MEDS: Dextrose 5% in Water Inj 1,000 ML IV.CONT SCH (07:34)
[2018-01-12 09:33] VITALS: O2SAT 97
[2018-01-12] MEDS: Metoprolol Tartrate 50 MG Tablet PO SCH (09:35)
[2018-01-12] MEDS: levETIRAcetam 500 MG Tablet PO SCH (09:36)
[2018-01-12] MEDS: Famotidine PF Inj 20 MG/2 ML Vial IV.PUSH SCH (09:38)
[2018-01-12] MEDS: Famotidine 20 MG Tablet PO SCH (09:38)
--- NOTE | 2018-01-12 10:48 | P.PNIM ---
Subjective Interval history: in no acute distress. sitting comfortable with no pain. no new complaints. d/w the RN and no acute issues over night. Physical Exam Vital signs: Vital Signs 01/11/18 12:00 01/11/18 16:00 01/11/18 20:00 Temperature 97.8 F 97.6 F 98.2 F Pulse Rate 79 67 77 Respiratory Rate 18 18 18 Blood Pressure 110/56 L 104/65 105/65 Pulse Oximetry 95 96 98 01/12/18 00:00 01/12/18 04:00 01/12/18 08:00 Temperature 97.5 F L 97.9 F 97.5 F L Pulse Rate 50 L 78 68 Respiratory Rate 18 18 18 Blood Pressure 113/55 L 115/58 L 138/61 Pulse Oximetry 96 96 97 Intake & Output 01/11/18 01/12/18 01/12/18 18:59 06:59 18:59 Intake Total 1100 / 1100 1000 / 1000 Output Total 450 / 450 Balance 650 / 650 1000 / 1000 Weight 111.3 kg Intake: IV 1000 / 1000 1000 / 1000 D5W Inj 1,000 ML @ 84 mls/hr IV 1000 / 1000 1000 / 1000 .CONT .[id number] [facility] Rx#:[id number] Oral 100 / 100 Output: Urine 450 / 450 Other: Date of Last Bowel Movement 01/09/18 01/11/18 - Constitutional no acute distress - Routine Respiratory Exam Present: CTA bilaterally - Routine Cardiovascular Exam Present: RRR - Routine Abdominal Exam Present: soft - Routine Extremities Exam Comments: no pedal edema. - Routine Neurological Exam Present: alert, oriented X3 Results - Labs CBC & Chem 7: 01/11/18 04:36 01/11/18 04:36 Laboratory Results - last 24 hr 01/12/18 00:48 POC Glucose 96 - Procedures LP Assessment and Plan - Plan New onset seizures Metabolic Encephalopathy- now has much improved. 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 Appreciate neurology consult evaluated by ID. Hypernatremia- improving. Hypokalemia- replaced. A-fib with RVR- now HR controlled. Hypertension echo with EF55% continue Metoprolol was not considered a candidate for anticoagulation per cardiology due to seizure and gait instability ; will defer to cardiology for anticoagulation therapy ; outpatient follow-up. continue with aspirin for now. sepsis due to pneumonia pneumonia- aspiration pulmonary nodule treated with IV antibiotics- CT chest as outpatient ( this was d/w the patient) . DVT prophylaxis subq Lovenox consulted PT. Discharge Planning: dc to rehab within the next 24 hrs. f/u; pcp, cardiology and neurology. see med list. d/w the patient, RN and case management. no driving till seen by neurology-outpatient. time spent 35 min.
--- NOTE | 2018-01-12 10:49 | P.DS ---
Date of admission: 01/03/18 11:59 Primary care physician: UNKNOWN Brief History from admission: 9-year-old male with no significant medical history presents to the ER after having a seizure during a police stop for erratic driving. He was reported to be driving side to side on the street and when police interviewed him he was obviously confused, they called EMS and patient had a seizure. He was given Ativan and transferred to [place] emergency room where he had a second seizure following his CAT scan. He is unable to provide a history due to his post ictal state and sedation from Ativan. He has no family, but his neighbors are like family and they are at his bedside and provided a history. They report that they have seen his light on throughout the night, he has been under a great deal of stress with a housing issue, sleep deprivation could be worth considering in the context of seizures. They deny noticing any relationships in the last few years. They have visited his home and he is somewhat of a hoarder, his home by their report is filthy and they noticed multiple areas of black mold. They reported that he eats approximately 20 tomatoes per week, it is questionable whether or not he washes off the chemicals prior to eating them. They reported that he is on well water. Also of importance he had a gastric bypass in 2010, though his electrolytes appear within normal limits on initial lab work. DS: Summary Hospital Course: New onset seizures Metabolic Encephalopathy- now has much improved. 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 Appreciate neurology consult evaluated by ID. Hypernatremia- improving. Hypokalemia- replaced. A-fib with RVR- now HR controlled. Hypertension echo with EF55% continue Metoprolol was not considered a candidate for anticoagulation per cardiology due to seizure and gait instability ; will defer to cardiology for anticoagulation therapy ; outpatient follow-up. continue with aspirin for now. pneumonia- aspiration lung nodule treated with antibiotics. outpatient f/u for lung nodule ( d/w the patient ). - Time Spent with Patient Total time spent providing and/or coordinating discharge services: Greater than 30 minutes (35 min.) - Quality: VTE Deep Vein Thrombosis/Pulmonary Embolism Present on Admission: No Exam Vital signs: Vital Signs 01/11/18 12:00 01/11/18 16:00 01/11/18 20:00 Temperature 97.8 F 97.6 F 98.2 F Pulse Rate 79 67 77 Respiratory Rate 18 18 18 Blood Pressure 110/56 L 104/65 105/65 Pulse Oximetry 95 96 98 01/12/18 00:00 01/12/18 04:00 01/12/18 08:00 Temperature 97.5 F L 97.9 F 97.5 F L Pulse Rate 50 L 78 68 Respiratory Rate 18 18 18 Blood Pressure 113/55 L 115/58 L 138/61 Pulse Oximetry 96 96 97 Intake & Output 01/11/18 01/12/18 01/12/18 18:59 06:59 18:59 Intake Total 1100 / 1100 1000 / 1000 Output Total 450 / 450 Balance 650 / 650 1000 / 1000 Weight 111.3 kg Intake: IV 1000 / 1000 1000 / 1000 D5W Inj 1,000 ML @ 84 mls/hr IV 1000 / 1000 1000 / 1000 .CONT .[id number] [facility] Rx#:[id number] Oral 100 / 100 Output: Urine 450 / 450 Other: Date of Last Bowel Movement 01/09/18 01/11/18 - Constitutional no acute distress - Routine Respiratory Exam Present: CTA bilaterally - Routine Cardiovascular Exam Present: RRR - Routine Abdominal Exam Present: soft - Routine Extremities Exam Comments: no pedal edema. - Routine Neurological Exam Present: alert, oriented X3 Results Procedures completed during hospitalization: LP Labs on day of discharge: Labs from last 24 hours 01/12/18 00:48 POC Glucose 96 - Impressions ITS Impressions Head CT 01/03/18 10:11 CONCLUSION: No acute intracranial abnormality is identified. . Abdomen X-Ray 01/04/18 00:00 CONCLUSION: Surgical clips in the upper abdomen. Bowel gas pattern within normal limits. Chest X-Ray 01/04/18 22:32 CONCLUSION: No significant change Chest CTA 01/05/18 00:00 CONCLUSION: 1. No pulmonary embolus. 2. Small bilateral pleural effusions. Dependent/compressive appearing atelectasis of both lower lobes. 3. Patchy nonspecific parenchymal opacities of both lungs. There is a 3.1 cm nodular area of the right lower lobe, nonspecific but most likely infectious or inflammatory, possibly a vascular malformation. Comparison to any previous outside facility chest CTs would be helpful. Three-month follow-up noncontrast chest CT is recommended if there are no priors. 4. Coronary artery calcification. Head MRI 01/05/18 00:00 CONCLUSION: 1. Negative MR Brain non contrast. 2. No evidence of acute infarct, hemorrhage, mass or edema. Lumbar Puncture Fluoroscopy 01/06/18 00:00 CONCLUSION: 1. Uncomplicated fluoroscopically guided lumbar puncture. Discharge Plan - Discharge Disposition Patient Disposition: Discharge to SNF - Discharge Condition Condition: Fair - Physicians Team Primary Care Provider: UNKNOWN, Attending Provider: Satya Muñoz Other Providers: Maddie Guillen MD ; Leonides Damon MD ; Darlene Lucero MD ; Rubens Napier MD ; [facility]
[2018-01-12 12:43] VITALS: BP 123/69; PULSE 73; TEMP 97.6
== END 2018-01-12 16:01 ==
LOC: NEPC 10:05 → NEDA 11:59 → HIMC 16:01 → N06 01-10 10:16
PROVIDERS: ADMIT Internal Medicine; ATTEND Internal Medicine